=== PATIENT | female | born 1975 | race Caucasian/White ===

== ENCOUNTER 2019-03-24 17:14 | Emergency (ER) | payer SELFPAY ==
--- NOTE | 2019-03-24 17:15 | ED_ITS ---
Entered by Gill Caruso, acting as scribe for Geovanni Morrow MD HPI - Chest Pain General: Chief Complaint: Chest Pain Stated Complaint: CHEST PAIN Time Seen by Provider: 03/24/19 17:18 Source: patient, EMS and RN notes reviewed Mode of arrival: EMS Limitations: no limitations History of Present Illness: HPI narrative: 43 yo female presents to ED with complaints of chest pain. The patient states her pain began around 1100 this morning. She said she had numbness in her R hand and face, that has since resolved. The patient said her chest pain radiated down into her L arm, but it only lasted a couple of minutes and it too has resolved. She stated the pain was worse with palpation. The patient is now tired, nauseated and has a headache but overall she is feeling better. complaint: chest pain Onset (ago): hour(s) (6) Timing of current episode: episodic Prior episodes: No Onset: during rest Pain location: substernal Pain radiation: left arm Severity: moderate Quality: aching Relieving factors: rest Exacerbating factors: exertion Associated symptoms: Reports nausea; Deny dyspnea or fever(s) Treatment prior to arrival: aspirin Risk Factors: Coronary artery disease risk factors: smoking history Thoracic aortic dissection risk factors: none Review of Systems Const: Denies: fever or chills Eyes: Denies: change in vision ENMT: Denies: throat pain or mouth pain Resp: Denies: shortness of breath GI: Reports: nausea : Denies: difficulty urinating Musc: Denies: back pain or joint pain Skin/Breast: Denies: rash Neuro: Denies: headache or behavioral changes Psych: Denies: depression Endo: Denies: excessive urination Francisco J/Lymph: Denies: easy bruising All/Imm: Denies: hives PFSH ED PFSH: Statuses (acute, chronic, etc) shown below reflect problem list status as previously entered and may not be historically accurate Social History Smoking and tobacco status: current every day smoker Physical Exam Const: COMMON NORMALS: no apparent distress and healthy appearing HENMT: COMMON NORMALS: normocephalic and external nose normal HEAD & SCALP: normocephalic NOSE: external nose normal and no nasal discharge (nasal dischage) Eye: COMMON NORMALS: PERRL PUPIL: Yes PERRL Neck/C-Spine: COMMON NORMALS: full ROM and no lymphadenopathy Chest: COMMONS NORMALS: inspection of chest normal Resp: COMMON NORMALS: normal respiratory effort and clear to auscultation bilaterally AUSCULTATION: clear to auscultation bilaterally Cardio: COMMON NORMALS: regular rate and regular rhythm RATE: regular rate RHYTHM: regular rhythm GI: COMMON NORMALS: soft to palpation PALPATION: Yes soft Extremity: COMMON NORMALS: normal to inspection, full ROM and normal capillary refill Psych: COMMON NORMALS: mental status grossly normal and cooperative Skin: COMMON NORMALS: no rashes or lesions noted GENERAL SKIN EXAM: no rashes or lesions noted Course Vital Signs: Vital signs: Vital Signs Temperature 97.7 F 03/24/19 17:18 Pulse Rate 68 03/24/19 20:34 Respiratory Rate 18 03/24/19 20:34 Blood Pressure 130/95 03/24/19 20:34 Pulse Oximetry 98 03/24/19 20:34 MDM - Chest Pain MDM Narrative: Medical decision making narrative: Patient presents here with chest pain is atypical in nature. Her troponin here is negative. On x-ray mass was found incidental and CT scan does show a possible neoplasm. I spoke to patient about this at length and have her follow-up with Dr. Whitley of oncology likely needs a PET scan. Lab Data: Labs: Lab Results 03/24/19 03/24/19 03/24/19 Range/Units 17:36 17:36 17:36 WBC 12.1 H (4.0-10.0) 10^3/ uL RBC 5.01 (4.1-5.3) 10^6/u L Hgb 12.8 (11.5-15.3) g/dL Hct 38.5 (37.0-47.0) % MCV 76.8 L (81-99) fL MCH 25.5 L (28.0-34.0) pg MCHC 33.2 (30.0-36.0) g/dL RDW 14.2 (12.1-15.1) % Plt Count 385 (130-400) 10^3/c mm MPV 9.5 (7.4-10.4) fL Neut % (Auto) 66.7 % Lymph % (Auto) 26.7 % Dent % (Auto) 5.1 % Eos % (Auto) 1.0 % Baso % (Auto) 0.2 % Neut # (Auto) 8.1 H (1.8-7.7) 10^3/u L Lymph # (Auto) 3.2 (0.8-4.8) 10^3/u L Dent # (Auto) 0.6 (0.2-0.9) 10^3/u L Eos # (Auto) 0.1 (0.0-0.8) 10^3/u L Baso # (Auto) 0.0 (0.0-0.1) 10^3/u L Nucleated RBC % (a uto) 0 % Nucleated RBCs # 0.0 /100WBC Sodium 141 (136-145) mmol/L Potassium 3.4 L (3.5-5.1) mmol/L Chloride 102 (98-107) mmol/L Carbon Dioxide 24 (22-29) mmol/L Anion Gap 18.4 (5-19) BUN 6 (6-20) mg/dL Creatinine 0.7 (0.5-0.9) mg/dL GFR Calculation 91.8 (90-130) mL/min Glucose 132 H (74-109) mg/dL Calculated Osmolal ity 290 (285-295) mOsm/k g Calcium 9.9 (8.5-10.5) mg/dL Troponin T Baselin e 6 (0-10) ng/mL Troponin T 120 Min [place] (0-10) ng/mL Delta Troponin T (0-10) ABS# Influenza Type A A g (Negative) POC Influenza B Ag (Negative) 03/24/19 03/24/19 Range/Units 17:45 19:52 WBC (4.0-10.0) 10^3/ uL RBC (4.1-5.3) 10^6/u L Hgb (11.5-15.3) g/dL Hct (37.0-47.0) % MCV (81-99) fL MCH (28.0-34.0) pg MCHC (30.0-36.0) g/dL RDW (12.1-15.1) % Plt Count (130-400) 10^3/c mm MPV (7.4-10.4) fL Neut % (Auto) % Lymph % (Auto) % Dent % (Auto) % Eos % (Auto) % Baso % (Auto) % Neut # (Auto) (1.8-7.7) 10^3/u L Lymph # (Auto) (0.8-4.8) 10^3/u L Dent # (Auto) (0.2-0.9) 10^3/u L Eos # (Auto) (0.0-0.8) 10^3/u L Baso # (Auto) (0.0-0.1) 10^3/u L Nucleated RBC % (a uto) % Nucleated RBCs # /100WBC Sodium (136-145) mmol/L Potassium (3.5-5.1) mmol/L Chloride (98-107) mmol/L Carbon Dioxide (22-29) mmol/L Anion Gap (5-19) BUN (6-20) mg/dL Creatinine (0.5-0.9) mg/dL GFR Calculation (90-130) mL/min Glucose (74-109) mg/dL Calculated Osmolal ity (285-295) mOsm/k g Calcium (8.5-10.5) mg/dL Troponin T Baselin e (0-10) ng/mL Troponin T 120 Min [place] 6.69 (0-10) ng/mL Delta Troponin T 0.69 (0-10) ABS# Influenza Type A A g Negative (Negative) POC Influenza B Ag Negative (Negative) Imaging Data^: CT Chest: Radiologist's impression: Ordering Provider/Ordering MD: Geovanni Morrow MD Date of Service: 03/24/19 Procedure(s): CT chest w con* [id number] Accession Number(s): [id number] Report Number: [id number] PROCEDURE INFORMATION: Exam: CT Chest With Contrast Exam date and time: 03/24/2019 6:59 PM Age: 43 years old Clinical indication: Abnormal findings; Lung mass or nodule; Not specified; Patient HX: Weakness, cxr in er abnormal, PT is a current smoker, PT denies surg HX, PT denies HX of CA. TECHNIQUE: Imaging protocol: Computed tomography of the chest with intravenous contrast. Total DLP: 823.85 mGy-cm Radiation optimization: All CT scans at this facility use at least one of these dose optimization techniques: automated exposure control; mA and/or kV adjustment per patient size (includes targeted exams where dose is matched to clinical indication); or iterative reconstruction. Contrast material: OMNIPAQUE 300; Contrast volume: 95 ml; Contrast route: IV; COMPARISON: CR XR chest 1V portable [id number] 03/24/2019 6:45 PM FINDINGS: Lungs: There is an 18 x 37 x 25 mm mass in the right middle lobe corresponding with the findings on chest radiograph. This mass is slightly lobulated in appearance but has smooth borders. This mass is worrisome for pulmonary neoplasm. Further evaluation is suggested. There is a 4 mm sized smooth nodule in the left upper lobe on image number 26, a 3 mm size nodule on image number 29 in the left upper lobe, a 3 mm size nodule in the posterior left lower lobe on image number 37 and a 7 mm sized smooth nodule in the left lower lobe on image number 46. There is also a 4 mm nodule in the right upper lobe on image number 14, a 8 x 13 mm nodule in the right lower lobe on image number 31 and a 4 mm nodule in the posterior right lower lobe on image number 41. These nodules are nonspecific but raise concern for possible pulmonary metastasis. Further evaluation such as with biopsy of the primary mass, or PET CT scan is suggested. Pleural space: Unremarkable. No pneumothorax. No pleural effusion. Heart: Unremarkable. No cardiomegaly. No pericardial effusion. Aorta: Unremarkable. No aortic aneurysm. Lymph nodes: See Pancreas Finding. Pancreas: There is a 16 x 28 x 19 mm smooth oval cystic mass either arising from or adjacent to the superior border of the neck of the pancreas and there is a mildly prominent lymph node adjacent to the head of the pancreas measuring 10 x 27 mm. Small nonspecific mesenteric lymph nodes are identified measuring up to 7 mm and there are few mildly prominent but not necessary pathologic retroperitoneal lymph nodes measuring up to 7 x 9 mm just inferior to the left renal vein. Bones/joints: Unremarkable. No acute fracture. Soft tissues: Unremarkable. CT/CT chest w con* [id number] IMPRESSION: 1. Right pulmonary mass which is worrisome for pulmonary neoplasm, further evaluation is suggested. Highly suspicious nodule(s). Consider PET/CT, or tissue sampling.(Michelle et al., Fleischner Society, 2017) 2. Bilateral pulmonary nodules which raise concern for metastatic disease 3. Minimal right hilar adenopathy 4. Cystic pancreatic or peripancreatic mass, further evaluation is suggested. 5. There is also an enlarged right hilar lymph node measuring 12 x 25 mm. Radiation Dose CTDIVOL = (mGy): DLP = 823.85 (mGy-cm) EKG Data^: EKG 1: Attestation: I personally reviewed and interpreted this EKG as follows: EKG interpretation date: 03/24/19 EKG interpretation time: 17:36 Interpretation: Normal sinus rhythm heart rate [address] or T wave abnormalities. QRS 88 QTc 411 EKG 2: Attestation: I personally reviewed and interpreted this EKG as follows: EKG interpretation date: 03/24/19 EKG interpretation time: 19:46 Interpretation: nsr hr [address] or t wave abnormalities qrs 82 qtc 417 Discharge Plan Discharge Patient Disposition: Home, Self-Care Clinical Impression: Mass of lung, Chest pain Condition: Stable Prescriptions: New Zofran 4 mg tablet 4 mg PO QID PRN (Reason: nausea and vomiting) Qty: 14 RF: 0 No Action ibuprofen 200 mg Capsule 200 mg PO Q6H PRN (Reason: Pain) RF: 0 Tylenol Extra Strength 500 mg Tablet 1,000 mg PO Q4H PRN (Reason: Pain) RF: 0 Discharge Orders: Discharge Order (Routine); Ordered 03/24/19 Ordered By: Geovanni Morrow Referrals: Mil Whitley MD [Hospitalist] - 4-7 days Char Fry FNP [Family Provider] - Discharge Diet: Advance as tolerated Discharge Activity: Resume usual activity Patient Instructions: Lung Cancer (ED) Discharge Date/Time: 03/24/19 20:30 Coding Level of Care Code ED Wine Fermenter for Chg Fwd Exam Problem Focused The documentation recorded by the Shady hughes Valerie R, accurately reflects the service I personally performed and the decisions made by Cristhian dumont Korby, MD Mar 24, 2019 17:14
[2019-03-24 17:18] VITALS: BP 126/80; PULSE 77; RESP 20; TEMP 36.5; O2SAT 98; BMI 29.5
--- NOTE | 2019-03-24 17:24 | ECG_ITS ---
Measurements Intervals [employer] Rate: 61 P: -16 MD: 131 QRS: 12 QRSD: 82 T: 34 QT: 414 QTc: 419 SINUS RHYTHM WITH SINUS ARRHYTHMIA Compared to ECG 03/24/2019 17:36:38 Myocardial infarct finding no longer present Electronically Signed On 03-25-2019 17:51:31 SAFE DEPOSIT ATTENDANT by Marvin Martinez M.D. [id number]
--- NOTE | 2019-03-24 17:30 | PC.NURSE ---
EMS gave 8 mg of zofran IV and 100 mls fluid.
[2019-03-24 17:44] LABS: Basophils % 0.2 %; Eosinophils # 0.1 10^3/uL (0.0-0.8); Hematocrit 38.5 % (37.0-47.0); Hemoglobin 12.8 g/dL (11.5-15.3); Lymphocytes # 3.2 10^3/uL (0.8-4.8); Lymphocytes % 26.7 %; Mean Corpuscular HGB Conc 33.2 g/dL (30.0-36.0); Mean Corpuscular Hemoglobin 25.5 pg (28.0-34.0); Mean Corpuscular Volume 76.8 fL (81-99); Mean Platelet Volume 9.5 fL (7.4-10.4); Monocytes # 0.6 10^3/uL (0.2-0.9); Monocytes % 5.1 %; Neutrophils # 8.1 10^3/uL (1.8-7.7); Neutrophils % 66.7 %; Nucleated Red Blood Cells % 0 %; Platelet Count 385 10^3/cmm (130-400); Red Blood Count 5.01 10^6/uL (4.1-5.3); Red Cell Distribution Width 14.2 % (12.1-15.1); White Blood Count 12.1 10^3/uL (4.0-10.0)
[2019-03-24 17:59] LABS: Anion Gap 18.4 (5-19); Blood Urea Nitrogen 6 mg/dL (6-20); Calcium 9.9 mg/dL (8.5-10.5); Carbon Dioxide 24 mmol/L (22-29); Chloride 102 mmol/L (98-107); Creatinine Clr Calc Pharmacy 105.8227; Glomerular Filtration Rate 91.8 mL/min (90-130); Glucose 132 mg/dL (74-109); Osmolality Calculated 290 mOsm/kg (285-295); Potassium 3.4 mmol/L (3.5-5.1); Sodium 141 mmol/L (136-145)
[2019-03-24 18:00] LABS: Troponin(5th) Baseline 6 ng/mL (0-10)
--- NOTE | 2019-03-24 18:06 | XR_ITS ---
WS: [id number] CHEST XRAY TECHNIQUE: Portable chest. CLINICAL INFORMATION: cp COMPARISON: None. FINDINGS: Heart: Normal cardiac silhouette. Lungs: Right pulmonary nodule measuring 3.9 x 2.3 CCM. Please see concurrent CT for further detail. P rominent right hilar lymph nodes. Bones: Normal visualized bony structures. XR/XR chest 1V portable [id number] IMPRESSION: Right pulmonary nodule measuring 3.9 x 2.3 CM. Right hilar lymphadenopathy. See concurrent chest CT report for further detail.
[2019-03-24 18:22] LABS: Influenza A by IFA Negative (Negative); Influenza B by IFA Negative (Negative)
--- NOTE | 2019-03-24 18:55 | CTR_ITS ---
PROCEDURE INFORMATION: Exam: CT Chest With Contrast Exam date and time: 03/24/2019 6:59 PM Age: 43 years old Clinical indication: Abnormal findings; Lung mass or nodule; Not specified; Patient HX: Weakness, cxr in er abnormal, PT is a current smoker, PT denies surg HX, PT denies HX of CA. TECHNIQUE: Imaging protocol: Computed tomography of the chest with intravenous contrast. Total DLP: 823.85 mGy-cm Radiation optimization: All CT scans at this facility use at least one of these dose optimization techniques: automated exposure control; mA and/or kV adjustment per patient size (includes targeted exams where dose is matched to clinical indication); or iterative reconstruction. Contrast material: OMNIPAQUE 300; Contrast volume: 95 ml; Contrast route: IV; COMPARISON: CR XR chest 1V portable [id number] 03/24/2019 6:45 PM FINDINGS: Lungs: There is an 18 x 37 x 25 mm mass in the right middle lobe corresponding with the findings on chest radiograph. This mass is slightly lobulated in appearance but has smooth borders. This mass is worrisome for pulmonary neoplasm. Further evaluation is suggested. There is a 4 mm sized smooth nodule in the left upper lobe on image number 26, a 3 mm size nodule on image number 29 in the left upper lobe, a 3 mm size nodule in the posterior left lower lobe on image number 37 and a 7 mm sized smooth nodule in the left lower lobe on image number 46. There is also a 4 mm nodule in the right upper lobe on image number 14, a 8 x 13 mm nodule in the right lower lobe on image number 31 and a 4 mm nodule in the posterior right lower lobe on image number 41. These nodules are nonspecific but raise concern for possible pulmonary metastasis. Further evaluation such as with biopsy of the primary mass, or PET CT scan is suggested. Pleural space: Unremarkable. No pneumothorax. No pleural effusion. Heart: Unremarkable. No cardiomegaly. No pericardial effusion. Aorta: Unremarkable. No aortic aneurysm. Lymph nodes: See Pancreas Finding. Pancreas: There is a 16 x 28 x 19 mm smooth oval cystic mass either arising from or adjacent to the superior border of the neck of the pancreas and there is a mildly prominent lymph node adjacent to the head of the pancreas measuring 10 x 27 mm. Small nonspecific mesenteric lymph nodes are identified measuring up to 7 mm and there are few mildly prominent but not necessary pathologic retroperitoneal lymph nodes measuring up to 7 x 9 mm just inferior to the left renal vein. Bones/joints: Unremarkable. No acute fracture. Soft tissues: Unremarkable. CT/CT chest w con* [id number] IMPRESSION: 1. Right pulmonary mass which is worrisome for pulmonary neoplasm, further evaluation is suggested. Highly suspicious nodule(s). Consider PET/CT, or tissue sampling.(Michelle et al., Fleischner Society, 2017) 2. Bilateral pulmonary nodules which raise concern for metastatic disease 3. Minimal right hilar adenopathy 4. Cystic pancreatic or peripancreatic mass, further evaluation is suggested. 5. There is also an enlarged right hilar lymph node measuring 12 x 25 mm. Radiation Dose CTDIVOL = (mGy): DLP = 823.85 (mGy-cm)
[2019-03-24] MEDS: iohexol 300 mg/mL 100 mL Btl IV (19:14)
[2019-03-24] MEDS: acetaminophen 500 mg Tablet 1000 MG PO (19:33)
--- NOTE | 2019-03-24 19:36 | PC.NURSE ---
Patient c/o headache and requesting tylenol. EMD aware. Order received and Tylenol po given . Denies further needs.
[2019-03-24 20:16] LABS: Troponin 5 2HR 6.69 ng/mL (0-10); Troponin 5 2HR Delta 0.69 ABS# (0-10)
[2019-03-24 20:34] VITALS: BP 130/95; PULSE 68; RESP 18; O2SAT 98
--- NOTE | 2019-03-24 23:24 | ECG_ITS ---
Measurements Intervals [place] Rate: 74 P: 17 SD: 143 QRS: 1 QRSD: 88 T: 16 QT: 383 QTc: 427 SINUS RHYTHM WITH SINUS ARRHYTHMIA LOW QRS VOLTAGE IN PRECORDIAL LEADS [QRS DEFLECTION < 1.0 mV IN CHEST LEADS] POSSIBLE ANTERIOR MYOCARDIAL INFARCTION , PROBABLY OLD [30 ms Q WAVE IN V3/V4, OR R < 0.2 mV IN V4] No previous ECG available for comparison Electronically Signed On 03-24-2019 18:56:20 FITNESS PROFESSIONAL by Marvin Martinez M.D. [id number]
--- NOTE | 2019-03-26 08:59 | DCPLANNER ---
project engineering manager had message to schedule a follow up appointment for patient with Dr. Whitley. project engineering manager spoke with Brenda in the office of Dr. Whitley, was told that patient will need to follow up with Dr. Chaparro first, she will need to have paths done before being seen by Dr. Whitley. project engineering manager called [facility], spoke with Ina, a follow up appointment is scheduled for March at 11:[address] Chaparro. Clinic will call patient with appointment information.
--- NOTE | 2019-05-09 09:09 | DCPLANNER ---
Patient did attend appointment scheduled for 04.11.19 with [facility].
== END 2019-03-24 20:30 | disposition home or self-care (01) ==
PROVIDERS: Emergency Provider Emergency Medicine; Family Provider Nurse Practitioner
DX: R07.9 Chest pain, unspecified (principal); R91.8 Other nonspecific abnormal finding of lung field; F17.210 Nicotine dependence, cigarettes, uncomplicated
CPT/HCPCS: 36415; 71045; 71260; 80048; 84484; 85025; 87804; 93005; 99281; Q9967

== ENCOUNTER 2019-06-17 14:25 | Inpatient (IN) | payer MEDICAID, SELFPAY ==
[2019-06-12 12:42] VITALS: BMI 28.9
[2019-06-12 13:11] LABS: Basophils % 0.3 %; Eosinophils # 0.2 10^3/uL (0.0-0.8); Eosinophils % 1.7 %; Hematocrit 41.9 % (37.0-47.0); Hemoglobin 13.3 g/dL (11.5-15.3); Lymphocytes # 3.2 10^3/uL (0.8-4.8); Lymphocytes % 33.2 %; Mean Corpuscular HGB Conc 31.7 g/dL (30.0-36.0); Mean Corpuscular Hemoglobin 25.7 pg (28.0-34.0); Mean Corpuscular Volume 80.9 fL (81-99); Mean Platelet Volume 9.7 fL (7.4-10.4); Monocytes # 0.5 10^3/uL (0.2-0.9); Monocytes % 5.2 %; Neutrophils # 5.6 10^3/uL (1.8-7.7); Neutrophils % 59.4 %; Nucleated Red Blood Cells % 0 %; Platelet Count 345 10^3/cmm (130-400); Red Blood Count 5.18 10^6/uL (4.1-5.3); Red Cell Distribution Width 14.4 % (12.1-15.1); White Blood Count 9.5 10^3/uL (4.0-10.0)
[2019-06-12 13:20] LABS: INR 0.96 (0.8-1.2)
[2019-06-12 13:21] LABS: Bilirubin Urine Neg (NEGATIVE); Blood Urine 2+ (Negative); Glucose Urine UA Norm (Normal); Ketones Urine Negative (Negative); Leukocyte Esterase Urine Negative (Negative); Nitrate Urine Negative (Negative); Protein Urine Neg (Negative); Specific Gravity, Urine 1.005 (1.005-1.030); Urine Appearance Clear (CLEAR); Urine Color Straw (Yellow); Urobilinogen Urine Norm (Negative); pH Urine 6.5 (5-7)
[2019-06-12 13:22] LABS: Add Urine Microscopic? YES
[2019-06-12 13:28] LABS: Add Urine Culture? Yes; Bacteria Urine 2+; Squamous Epithelial Cell Urine 0-4 (0-5); WBC Urine 0-4 /hpf (0-5)
[2019-06-12 13:30] LABS: Anion Gap 14.5 (5-19); Blood Urea Nitrogen 7 mg/dL (6-20); Calcium 9.6 mg/dL (8.5-10.5); Carbon Dioxide 27 mmol/L (22-29); Chloride 101 mmol/L (98-107); Glomerular Filtration Rate 109.6 mL/min (90-130); Glucose 125 mg/dL (65-115); Osmolality Calculated 285 mOsm/kg (285-295); Potassium 3.5 mmol/L (3.5-5.1); Sodium 139 mmol/L (136-145)
[2019-06-17] VITALS (23 sets, daily range): BP systolic 89–125; BP diastolic 56–84; PULSE 67–95; RESP 12–23; TEMP 36.4–37.3; O2SAT 93–100
[2019-06-17 09:13] LABS: OR HCG Qualitative Urine Negative (Negative)
--- NOTE | 2019-06-17 09:27 | P.ANESASSM_ITS ---
Pre-Anesthetic Assessment Pre-Anesthetic Assessment: Height/Weight: Height 1.63 m Weight 77.564 kg Preop Diagnosis: R lung mass Proposed Procedure: Operation Date: 06/17/19 11:05 Proposed Procedures p Lobectomy of right 00341(Right) - Romaine Schwab MD Familial anesthetic complications: None Was Beta Antonia taken within 24 hour s: N/A Last intake: NPO > 8 hrs Social: Social History: No alcohol Comment: former smoker Exam: Pre-Anes Outpt Exam: alert, oriented x 3, clear to auscultation bilaterally and regular rate & rhythm Airway: Cervical ROM: WNL MP: 2 Additional comments: missing Pulmonary: Comments: Lung mass, occasional SOB recently (6 months) CV/HEM: CV/HEM: None reported : : None reported Hepatic: Hepatic: None reported GI: GI: None reported Metabolic: Metabolic: None reported Comments: occasional hypoglycemia - was on glucophage Musc/skel: Musc/skel: OA/DJD Neuropsych: Neuropsych: None reported Anesthetic Plan: ASA status: 2 Anesthesia: General Risk of > 500 ml blood loss (7ml/kg in children): Yes, adequate IV access and fluids planned PFSH Anesthesia PFSH: Medical History (Updated 06/12/19 @ 12:40 by Dominique Mcbride RN) Bursitis Osteoarthritis Surgical History H/O tubal ligation History of 3 sections Social History Smoking and tobacco status: former smoker Quit status (tobacco): has quit using tobacco Year quit tobacco: 2019 - 1.5PPD x 30 Years Alcohol intake: never Lives independently: Yes Household members: none Marital status: Legally Current occupational status: employed Current occupational exposures/hazards: No History of recent travel: No Current gender identity: Female Female Reproductive History: Date of last menstrual period: 05/19/19 Data Anesthesia CBC & Chem 7: 06/12/19 12:53 06/12/19 12:53 Other Labs: Laboratory Results - last 48 hr 06/12/19 06/17/19 12:53 09:09 Urine HCG, Qual Negative Blood Type O Positive Rho(D) Type Positive Antibody Screen Negative Crossmatch See Detail Cardiac Studies: No Data to Display
[2019-06-17] MEDS: midazolam 1 mg/mL INJ 2 mL 2 MG IVP (09:42)
--- NOTE | 2019-06-17 10:10 | W.PM.OPSUD ---
Surgery/Procedure H&P Update DATE OF PROCEDURE: June 17, 2019 DATE H&P PERFORMED: 06/12/19 H&P UPDATE INFORMATION: I have reviewed H&P completed within last 30 days, I have examined patient prior to procedure and No changes to prior documentation PREOP DIAGNOSIS: R lung mass PRIMARY INDICATION FOR PROCEDURE: Right middle lobe lung mass with increased activity on PET scan and history of tobacco use PLANNED PROCEDURE: Operation Date: 06/17/19 11:05 Proposed Procedures p Lobectomy of right 51780(Right) - Romaine Schwab MD
--- NOTE | 2019-06-17 10:38 | P.ANES_ITS ---
Anesthesia Procedures Procedure/Date: 06/17/19 Epidural: Time Out Performed: Yes Consents Signed: Procedure Consent Consent: requested by attending/covering physician, from patient, risks and benefits reviewed and patient agrees to proceed Thoracic Level: other (T5-6) Epidural position: sitting Epidural procedure: sterile prep of area (Chloro prep X 2), 1% lidocaine to numb the area, 18 g needle, neg for paresthesia, test dose given (negative), 1.5% xylocaine 1:200k epi (3 ml), placed PCEA, no systemic response, sterile dressing applied and 0.2% Ropiavacaine @ mls/hr (6)
[2019-06-17] MEDS: cetacaine Spray 5 gm Can 1 SPRAY TOPICAL (11:38)
[2019-06-17] MEDS: vancomycin 1,000 MG SDV 1000 MG IRRIGATION (12:06)
--- NOTE | 2019-06-17 14:37 | P.OP_ITS ---
Operative Report Date of procedure: June 17, 2019 Pre-op Diagnosis: R lung mass Post-op diagnosis: same Procedure Done: Right middle lobectomy Specimens removed/disposition: Right middle lobe Biopsy of hilar lymph node Surgeon: Romaine Schwab Anesthesia: General Estimated blood loss (mL): 100 Complications: None: Post procedure chest x-ray pending Condition: stable Disposition: ICU Brief History: Ms. Wick is a 43-year-old female referred to our service for incidental finding of a right middle lobe mass. She was recently seen back in February for shoulder pain which prompted a chest x-ray revealing this lesion which was confirmed by CT scan to be a 3.5 cm right middle lobe smooth based mass. Subsequent PET scan of April 20 revealed intense activity in this lesi on. Given her long history of tobacco use, resection of the recommended. Details the risk of the procedure were carefully and frankly discussed. Proper consents have been reviewed and signed. Procedure: Thoracic epidural catheter was placed prior to entering the surgical suite. Patient underwent general endotracheal anesthesia with double-lumen e ndotracheal tube placed. Appropriate invasive lines were placed. She was placed in the left lateral decubitus position over axillary roll and protective padding. Her entire right chest was sterilely prepped and draped. A muscle- sparing limited right thoracotomy incision was made with cautery used to control bleeding. Latissimus muscle was divided. The anterior serratus muscle was retracted but not divided. The fifth intercostal space was entered. Moist laparotomy pads and the Finochietto retractor were placed. The chest was carefully opened. Right middle lobe mass could be easily palpated. This lesion appeared to be confined to the right middle lobe though there was some hilar adenopathy that was fairly firm. There appeared to be no extension of the mass beyond the fissure, though the lesion was in the inferior aspect of the right middle lobe towards the right lower lobe. The pleura was opened circumferentially around the hilum. Inferior pulmonary ligament was taken down. Hilar dissection was initiated anteriorly and superiorly. The branches of the superior pulmonary vein to the right middle lobe were controlled and stapled. Dissection was then continued cranially isolating branches of the pulmonary artery to the right middle lobe. These were also taken down ligated and divided. Anteriorly, the bronchus to the right middle lobe was dissected free. The incomplete fissure between middle lobe and upper lobe was divided using automated stapler. After completion of dissection through the fissure and completion of securing vasculature, the bronchus to right middle lobe was stapled and transected. Lymph node sampling was then performed in the hilum, which contained prominent and firm lymphoid tissue the entire chest was irrigated with large amounts of antibiotic solution. The right upper and lower lobes were reinflated. No substantial air leaks were identified. 28 [place] drain was placed over the diaphragm and out to the apex. This was connected to Pleur-evac suction. Retractor and sponges were removed. Sponge and needle count was correct. Chest wall was reapproximated with interrupted #1 Vicryl suture. The fascia was closed with running 0 Vicryl suture. The subcutaneous layer was closed with 2-0 Vicryl suture. Skin was reapproximated in a subcuticular manner with 3-0 Monocryl suture. Sterile dressing was applied. Ms. Wick was returned to the supine position and awakened from anesthesia. She was extubated. She was then transferred to the ICU. Her sister was counseled by phone. Chest x-ray is pending.
--- NOTE | 2019-06-17 14:41 | XR_ITS ---
WS: [id number] CHEST XRAY TECHNIQUE: Portable chest. CLINICAL INFORMATION: Status post right middle lobectomy COMPARISON: March 24, 2019 FINDINGS: Right chest tube in place. Postoperative right middle lobectomy. Subcutaneous emphysema rig ht lateral chest wall. No definite visualized pneumothorax. Mild pulmonary vascular congestion. XR/XR chest 1V portable [id number] IMPRESSION: 1. Postoperative changes right middle lobectomy with right thoracotomy. 2. Right chest tube in place. No definite visualized pneumothorax. 3. Mild pulmonary vascular congestion. No significant pleural fluid. No focal pneumonia.
--- NOTE | 2019-06-17 14:51 | ANE.PACU2 ---
 Inpatient post-anesthesia follow up: Airway intact: Yes Vital signs: Temperature 97.5 F Pulse Rate 76 Respiratory Rate 18 Blood Pressure 116/79 Pulse Oximetry 100 Oxygen Delivery Me thod Room Air Oxygen Flow Rate Fraction of Inspir ed Oxygen Hydration adequate: Yes Nausea and vomiting: No Pain level: 2 Mental status: Baseline Additional Comments: post procedure in ICU 11. patient admits to minimal pain. report to CHAIRMAN EMERITUS
[2019-06-17] MEDS: lactated ringers 1,000 ML 100 ML IV (16:29)
--- NOTE | 2019-06-17 19:21 | PC.NURSE ---
ART line removed. pressure held for 15 min. pt tolerated well.
--- NOTE | 2019-06-17 19:23 | NUR.SHIFT ---
Pt is easily rousable. sleeping in between care. Currently BP starting to get in the 80-90's systolic. Maddison ARTHUR notified as she is the on coming nurse.
[2019-06-17] MEDS: ceFAZolin 1,000 MG in sodium chloride 0.9% (plus) 50 ML 100 MG IV (19:25)
--- NOTE | 2019-06-17 19:51 | PC.NURSE ---
Opening statement upon shift report, patient [employer] pump has 40.7ml of ropivicaine left in bag. patient is getting 6ML/hr continuous with 3 attempts. patient has been given 9/13 attempts from pump. 1954 patient blood pressure 77/49. patient began to get very nauseous and had one episode of vomiting. patient was sat up and given IV zofran for nausea. repeat blood pressure on right arm shows 84/62. patient is stating a pain of 6/10 but if moshe sedated when nurse is not in room. 1904 Kenyon Lance,RF MICROWAVE ENGINEER contacted and informed of patient sedation, low blood pressure, vomiting episode. Kenyon informed of epidural setting. Verbal order to decrease [employer] pump to 3ml/hr with 1 attempt.
[2019-06-17] MEDS: ondansetron 2 mg/ML SDV 2 mL 4 MG IVP (20:01)
[2019-06-17] MEDS: ketorolac 30 mg/mL INJ IVP (22:23)
[2019-06-18] VITALS (61 sets, daily range): BP systolic 95–138; BP diastolic 62–85; PULSE 57–88; RESP 14–24; TEMP 37.2–37.6; O2SAT 88–99
[2019-06-18] MEDS: lactated ringers 1,000 ML 100 ML IV ×3 (02:11→21:59)
[2019-06-18] MEDS: ketorolac 30 mg/mL INJ IVP ×4 (04:38→20:36)
[2019-06-18] MEDS: ceFAZolin 1,000 MG in sodium chloride 0.9% (plus) 50 ML 100 MG IV ×3 (04:38→19:07)
--- NOTE | 2019-06-18 04:41 | XR_ITS ---
WS: [id number] CHEST XRAY TECHNIQUE: Portable chest. CLINICAL INFORMATION: post op cabg COMPARISON: June 17, 2019 FINDINGS: Heart: Normal cardiac silhouette. Lungs: Right chest tube in place. Postoperative changes right middle lobectomy. No visualized pneumot horax. Pulmonary vascular congestion has improved. Bones: Normal visualized bony structures. XR/XR chest 1V portable [id number] IMPRESSION: 1. Postoperative right middle lobectomy with improved pulmonary vascular conge stion. 2. Right chest tube in place. No visualized pneumothorax.
[2019-06-18 05:17] LABS: Basophils % 0.2 %; Eosinophils % 0.3 %; Hematocrit 36.2 % (37.0-47.0); Hemoglobin 11.3 g/dL (11.5-15.3); Lymphocytes # 3.3 10^3/uL (0.8-4.8); Mean Corpuscular HGB Conc 31.2 g/dL (30.0-36.0); Mean Corpuscular Hemoglobin 25.3 pg (28.0-34.0); Mean Corpuscular Volume 81.2 fL (81-99); Monocytes # 1.2 10^3/uL (0.2-0.9); Monocytes % 8.6 %; Neutrophils # 9.6 10^3/uL (1.8-7.7); Neutrophils % 67.5 %; Nucleated Red Blood Cells % 0 %; Platelet Count 305 10^3/cmm (130-400); Red Blood Count 4.46 10^6/uL (4.1-5.3); Red Cell Distribution Width 14.4 % (12.1-15.1); White Blood Count 14.2 10^3/uL (4.0-10.0)
[2019-06-18 05:36] LABS: Anion Gap 15.8 (5-19); Blood Urea Nitrogen 6 mg/dL (6-20); Calcium 9.1 mg/dL (8.5-10.5); Carbon Dioxide 24 mmol/L (22-29); Chloride 104 mmol/L (98-107); Glomerular Filtration Rate 109.6 mL/min (90-130); Glucose 108 mg/dL (65-115); Osmolality Calculated 286 mOsm/kg (285-295); Potassium 3.8 mmol/L (3.5-5.1); Sodium 140 mmol/L (136-145)
--- NOTE | 2019-06-18 06:16 | P.PN_ITS ---
Subjective Subjective: Interval history: Postop day #1 status post right middle lobectomy. Uneventful night. Epidural catheter had to be decreased somewhat due to some mild hypotension and some nausea. Both have resolved with decrease of the epidural rate. Very low chest tube output. No air leak. I have personally reviewed this morning's chest x-ray. No infiltrate or effusion. Good lung expansion bilaterally. Lab is stable this morning. Vital signs stable. Vitals/I&O/Wt Last Vital Signs Temp 99.3 F 06/18/19 04:00 Pulse 70 06/18/19 06:00 Resp 17 06/18/19 06:00 BP 106/71 06/18/19 06:00 Pulse Ox 95 06/18/19 06:00 06/17/19 06/17/19 06/18/19 14:59 22:59 06:59 Intake Total 50 / 50 470 / 520 1948 / 2468 Output Total 1000 / 1000 1675 / 2675 Balance 50 / 50 -530 / -480 273 / -207 Physical Exam Resp: COMMON NORMALS: normal respiratory effort, no retractions and clear to auscultation bilaterally AUSCULTATION: clear to auscultation bilaterally Cardio: COMMON NORMALS: regular rate, regular rhythm and S1 normal heart sound RATE: regular rate RHYTHM: regular rhythm HEART SOUNDS: S1 normal Extremity: COMMON NORMALS: no clubbing, cyanosis or edema Urinary Catheter Management^: Barnes: Cath Placed During This Visit: yes Reason for Continuing Indwelling Catheter: Accurate Measurement of Urinary Output in Critically Ill Patients Urinary Catheter Date of Insertion: 06/17/19 Urinary Catheter Time of Insertion: 11:45 Data : 06/18/19 04:25 06/18/19 04:25 A&P Assessment and plan (1) Status post lobectomy of lung: Postop day #1 status post right middle lobectomy. Recovering quite well. Plan: Continue pulmonary toilet and out of bed. Continue chest tube to suction. 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
[2019-06-18] MEDS: pantoprazole DR 40 mg Tablet PO (08:11)
[2019-06-18] MEDS: ondansetron 2 mg/ML SDV 2 mL 4 MG IVP (08:13)
[2019-06-18] MEDS: morphine 4 mg/mL SDV 1 mL 1 MG IVP ×3 (10:00→19:08)
[2019-06-18] MEDS: HYDROcodone-acetaminophen 5-325 mg Tablet 1 TAB PO ×2 (11:14→17:02)
--- NOTE | 2019-06-18 11:52 | PC.NURSE ---
Late entry/30am-pt up to chair, attempted to urinate, unable. bladder scan done, 400 in bladder. New order received to put higgins back in. Additional pain medication also ordered.
--- NOTE | 2019-06-18 13:54 | PC.NURSE ---
Assisted pt back up to chair. Tolerated well.
--- NOTE | 2019-06-18 17:55 | PC.NURSE ---
Pt pulling 750 on IS.
--- NOTE | 2019-06-18 17:59 | PC.NURSE ---
Dressing around CT changed.
[2019-06-19] VITALS (8 sets, daily range): BP systolic 117–125; BP diastolic 73–81; PULSE 71–76; RESP 16–20; TEMP 36.7–36.8; O2SAT 95–98
[2019-06-19] MEDS: morphine 4 mg/mL SDV 1 mL 1 MG IVP ×5 (00:17→23:09)
[2019-06-19] MEDS: ketorolac 30 mg/mL INJ IVP ×3 (03:03→21:01)
[2019-06-19] MEDS: ceFAZolin 1,000 MG in sodium chloride 0.9% (plus) 50 ML 100 MG IV (03:03)
--- NOTE | 2019-06-19 03:15 | PC.NURSE ---
0205 patient states that she feels like she is short of breath and is having trouble trying to breath. Nurse repositioned patient in bed and informed patient of adequate vital signs. patient then stated that her pain was a 9/10 and she believes that her pain is causing her to be short of breath. Nurse gave 1mg morphine per order for pain. patient stated that this did help with pain. now stating 4/10. all vitals are stable at this time. will continue to monitor.
--- NOTE | 2019-06-19 06:00 | XR_ITS ---
WS: [id number] CHEST XRAY TECHNIQUE: Portable chest. CLINICAL INFORMATION: Postop day #2 status post right upper lobectomy; chest tube to waterseal COMPARISON: June 18, 2019 FINDINGS: Heart: Normal cardiac silhouette. Lungs: Postoperative right middle lobectomy. Right chest tube in place. No visualized pneumothorax. T race residual subcutaneous emphysema along the right lateral chest wall. Lungs well aerated. Bones: Normal visualized bony structures. XR/XR chest 1V portable [id number] IMPRESSION: 1. Postoperative right middle lobectomy. 2. Right chest tube. No visualized pneumothorax.
--- NOTE | 2019-06-19 06:13 | PM.PN ---
Subjective Subjective: Interval history: Postop day #2 status post right middle lobectomy. Nursing service reports chest tube output about 120 cc overnight. No air leak noted on chest tube which is to Pleur-evac suction. Pain appears better good control. Chest x-ray remains clear. Afebrile. With stable vital signs. Vitals/I&O/Wt Last Vital Signs Temp 98.9 F 06/18/19 17:15 Pulse 68 06/18/19 18:00 Resp 19 H 06/19/19 02:13 BP 111/84 06/18/19 18:00 Pulse Ox 95 06/19/19 02:13 06/18/19 06/18/19 06/19/19 14:59 22:59 06:59 Intake Total 1551.667 / 8316.241 9560 / 3461.667 1038 / 4499.667 Output Total 300 / 300 2350 / 2650 570 / 3220 Balance 1251.667 / 1251.667 -440 / 811.667 468 / 1279.667 Physical Exam Chest: COMMONS NORMALS: inspection of chest normal (Incisional dressing and chest tube site clean) Resp: COMMON NORMALS: normal respiratory effort, no retractions and clear to auscultation bilaterally AUSCULTATION: clear to auscultation bilaterally Cardio: COMMON NORMALS: regular rate and regular rhythm RATE: regular rate RHYTHM: regular rhythm Urinary Catheter Management^: Barnes: Cath Placed During This Visit: yes, but has since been removed by the nurse Reason for Continuing Indwelling Catheter: Accurate Measurement of Urinary Output in Critically Ill Patients Urinary Catheter Date of Insertion: 06/17/19 Urinary Catheter Time of Insertion: 11:45 Date Urinary Catheter Removed: 06/18/19 Time Urinary Catheter Discontinued: 07:30 Data : 06/18/19 04:25 06/18/19 04:25 A&P Assessment and plan (1) Status post lobectomy of lung: Postop day #2 status post right middle lobectomy Chest tube to waterseal Out of bed Continue incentive spirometry Transfer to ortiz. Status: Acute Attestations Medical Necessity Statement*: Postop day 2 status post right middle lobectomy Coding Level of Care Code Acute Director Of Rehabilitative Services for Chg Fwd Diagnoses Status post lobectomy of lung Z90.2
[2019-06-19] MEDS: HYDROcodone-acetaminophen 5-325 mg Tablet 1 TAB PO ×3 (06:44→20:09)
--- NOTE | 2019-06-19 06:45 | PC.NURSE ---
Per MD medication Hydrocodone 5/325 to be given to assess for reaction. patient received yesterday with no reaction to the medication. Patient states that she is having 5/10 pain and agrees to take Hydrocodone under close care by ICU staff.
--- NOTE | 2019-06-19 07:08 | ANE.PACU2 ---
 Inpatient post-anesthesia follow up: Airway intact: Yes Vital signs: Temperature 98.9 F Pulse Rate [Apical ] 70 Pulse Rate 68 Respiratory Rate 19 Blood Pressure [Le ft Arm] 106/71 Blood Pressure 111/84 Pulse Oximetry 95 Oxygen Delivery Me thod Room Air Oxygen Flow Rate 2 Fraction of Inspir ed Oxygen Hydration adequate: Yes Nausea and vomiting: No Mental status: Baseline Additional Comments: Setting of epidural were halved the night of surgery due to hypotension. pain in thorax well controlled, however did experience increased pain last night in her side. She was out of reach of her button, but this improved once she was able to press her button. She does continue to have signifcant shoulder pain, referred. i explained epidural would not help with shoulder pain. Patient encouraged to use her bolus button and if she experiences increased pain in her chest wall we can increase her epidural rate.
[2019-06-19] MEDS: ondansetron 2 mg/ML SDV 2 mL 4 MG IVP ×2 (07:22→12:14)
[2019-06-19] MEDS: pantoprazole DR 40 mg Tablet PO (07:37)
--- NOTE | 2019-06-19 10:39 | PC.RESP ---
Pulmonary Rehab information sent to patient for outpatient status.
--- NOTE | 2019-06-19 16:00 | PC.NURSE ---
1500-- REPORT CALLED TO RIYA ARTHUR. PT & PERSONAL BELONGINGS TO ROOM. PT AMBULATED TO ROOM 268 WITH SLOW STEADY PACE. WISHED WELL
[2019-06-20] VITALS (12 sets, daily range): BP systolic 117–142; BP diastolic 71–90; PULSE 64–85; RESP 16–20; TEMP 36.7–36.9; O2SAT 90–99
--- NOTE | 2019-06-20 01:04 | PC.NURSE ---
WHEN ASSESSING PT CHEST TUBE DRAINAGE SYSTEM , THIS NURSE NOTICED THAT THE MARKING ON THE ATRIUM WAS INCONSISTENT WITH THE AMOUNT OF DRAINAGE THE PATIENT ACTUALLY HAD. CORRECTED BY ANKLE PATCH MOLDER, WILL CONTINUE TO MONITOR.
[2019-06-20] MEDS: morphine 4 mg/mL SDV 1 mL 1 MG IVP ×4 (03:18→22:26)
[2019-06-20] MEDS: HYDROcodone-acetaminophen 5-325 mg Tablet 1 TAB PO ×4 (03:19→19:32)
--- NOTE | 2019-06-20 06:00 | XR_ITS ---
WS: [id number] CHEST XRAY TECHNIQUE: Portable chest. CLINICAL INFORMATION: Postop day #3 status post right middle lobectomy COMPARISON: June 19, 2019 FINDINGS: Heart: Normal cardiac silhouette. Lungs: Right chest tube in place. Status post right middle lobectomy. Trace pleural fluid with bibasi lar atelectasis. Bones: Mild thoracic curve convex left. XR/XR chest 1V portable [id number] IMPRESSION: 1. Right chest tube in place. No visualized pneumothorax. 2. Trace pleural fluid bilaterally.
--- NOTE | 2019-06-20 06:44 | P.PN_ITS ---
Subjective Subjective: Interval history: Postop day #3 status post right middle lobectomy. I have conferred with Dr. Banks from pathology. 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 Further immunostains are pending. The hilar lymph node biopsy was also positive. She is under a bit more discomfort in her right shoulder today, though she still has low chest tube output and no air leak with effective coughing. A bit of difficulty sleeping last night. Afebrile. Vital signs stable. Right lung remains clear. Chest tube is in good position on this morning's chest x-ray. Vitals/I&O/Wt Last Vital Signs Temp 98.1 F 06/20/19 03:40 Pulse 67 06/20/19 03:40 Resp 20 H 06/20/19 03:40 BP 132/82 06/20/19 03:40 Pulse Ox 95 06/20/19 03:40 06/19/19 06/19/19 06/20/19 14:59 22:59 06:59 Intake Total 1600 / 1600 300 / 1900 Output Total 1400 / 1400 1455 / 2855 1050 / 3905 Balance 200 / 200 -1155 / -955 -1050 / -2004 Physical Exam Chest: COMMONS NORMALS: inspection of chest normal (Chest wall is stable. No subcutaneous emphysema.) Resp: COMMON NORMALS: clear to auscultation bilaterally AUSCULTATION: clear to auscultation bilaterally Urinary Catheter Management^: Barnes: Cath Placed During This Visit: yes, but has since been removed by the nurse Reason for Continuing Indwelling Catheter: Acute Urinary Retention or Obstruction Urinary Catheter Date of Insertion: 06/17/19 Urinary Catheter Time of Insertion: 11:45 Date Urinary Catheter Removed: 06/18/19 Time Urinary Catheter Discontinued: 07:30 Data : 06/18/19 04:25 06/18/19 04:25 A&P Assessment and plan (1) Status post lobectomy of lung: Postop day #3 status post right upper lobectomy. Plan: I will plan to discontinue chest tube later today, with possible discharge tomorrow afternoon. Chest x-ray in a.m. 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
[2019-06-20] MEDS: TRAMadol 50 mg Tablet PO ×3 (08:13→20:40)
[2019-06-20] MEDS: ketorolac 30 mg/mL INJ IVP ×3 (08:13→23:04)
[2019-06-20] MEDS: pantoprazole DR 40 mg Tablet PO (08:14)
--- NOTE | 2019-06-20 13:42 | PC.NURSE ---
Patient epidural and chest tube removed. xerform and coverderm dressing applied to chest tube site, epidural removed and site covered with coverderm dressing. Patients surgical site painted with betadine and covered with coverderm. Patient tolerated well.
[2019-06-20] MEDS: ondansetron 2 mg/ML SDV 2 mL 4 MG IVP ×2 (15:02→22:26)
[2019-06-21] VITALS: BP 132/86; PULSE 65; RESP 18; TEMP 36.6; O2SAT 98
[2019-06-21 04:00] VITALS: BP 128/82; PULSE 72; RESP 17; TEMP 36.8; O2SAT 100
[2019-06-21] MEDS: HYDROcodone-acetaminophen 5-325 mg Tablet 1 TAB PO ×3 (04:22→11:23)
--- NOTE | 2019-06-21 06:00 | XR_ITS ---
WS: [id number] CHEST XRAY TECHNIQUE: Portable chest. CLINICAL INFORMATION: POD#4 s/p Right middle lobectomy COMPARISON: June 20, 2019 FINDINGS: Heart: Normal cardiac silhouette. Lungs: Right chest tube removed. No definite pneumothorax. Tiny bilateral pleural effusions. Lungs we ll aerated. Bones: Normal visualized bony structures. XR/XR chest 1V portable [id number] IMPRESSION: 1. Right chest tube removed. No visualized pneumothorax. 2. Tiny bilateral pleural effusions.
--- NOTE | 2019-06-21 06:44 | P.DS_ITS ---
Discharge Providers Date of Admission: 06/17/19 14:25 Date of Discharge: June 21, 2019 Attending Provider at Admission: Romaine Schwab MD Attending Provider at Discharge: Romaine Schwab MD Diagnoses at Discharge Discharge Diagnosis (1) Status post lobectomy of lung: Status: Acute Reason for Visit Reason for Visit: Reason For Visit: lung mass Hospital Course Hospital Course: Pleasant 43-year-old female with a discrete intensely PET positive right middle lobe lung mass. After undergoing outpatient preoperative testing, she was elected admitted on June 16 underwent right middle lobectomy and sampling of right hilar lymph nodes. Pathology has returned a spindle cell type of tumor which could potentially represent neuroendocrine or possible melanoma. Further studies are currently underway. Postop Carlos, she initially recovered in the ICU where she remained hemodynamically stable. Epidural catheter and narcotics provided good pain relief. She had good use of incentive spirometry. Very small air leak rapidly dissipated within approximately 24 to 36 hours. Low drainage from the chest tube. She was separately transferred to the ortiz which continued to do well. Chest tube was discontinued yesterday. Right lung is well-inflated without pneumothorax or fluid collection. No infiltrates. Incision is clean and dry. Tolerating diet well. She is eager for discharge. She will be discharged to home with home health services in stable condition. Physical Exam Chest: COMMONS NORMALS: inspection of chest normal (Thoracotomy incision clean and dry. Drain sites well approximated.) CHEST: Yes symmetrical chest wall rise Resp: COMMON NORMALS: normal respiratory effort and clear to auscultation bilaterally AUSCULTATION: clear to auscultation bilaterally Extremity: COMMON NORMALS: no clubbing, cyanosis or edema Urinary Catheter Management^: Barnes: Cath Placed During This Visit: yes, but has since been removed by the nurse Reason for Continuing Indwelling Catheter: Acute Urinary Retention or Obstruction Urinary Catheter Date of Insertion: 06/17/19 Urinary Catheter Time of Insertion: 11:45 Date Urinary Catheter Removed: 06/18/19 Time Urinary Catheter Discontinued: 07:30 Discharge Data Data Completed and Pending: Completed Studies During Hospitalization Category Date Time Status XR chest 1V lillian ble [id number] Routine Exams 06/17/19 14:41 Completed XR chest 1V lillian ble [id number] Routine Exams 06/18/19 04:41 Completed XR chest 1V lillian ble [id number] Routine Exams 06/19/19 06:00 Completed XR chest 1V lillian ble [id number] Routine Exams 06/20/19 06:00 Completed Pending at discharge Category Date Time Status XR chest 1V lillian ble [id number] Routine Exams 06/21/19 06:00 Taken PRBC [Leukocyte R educed RBC] Routin e Lab 06/12/19 12:53 Results Retype for XM Rou elise Lab 06/12/19 12:53 Results Type and Screen - Cardiac Routine Lab 06/12/19 12:53 Results Type and Screen R outine Lab 06/12/19 12:53 Results Pathology: Surgic al [PTH] Routine Pth 06/17/19 14:52 Received Vitals: Last Vital Signs Temp 98.2 F 06/21/19 04:00 Pulse 72 06/21/19 04:00 Resp 17 06/21/19 04:00 BP 128/82 06/21/19 04:00 Pulse Ox 100 06/21/19 04:00 Discharge Plan Discharge Patient Disposition: Home Health Service Condition: Stable Prescriptions: New hydrocodone-acetaminophen 5-325 mg Tablet 28 tab PO Q6H PRN (Reason: Moderate Pain) 7 Days Qty: 28 RF: 0 Continued ibuprofen 200 mg Capsule 200 mg PO Q6H PRN (Reason: Pain) RF: 0 ondansetron HCl [Zofran] 4 mg tablet 4 mg PO QID PRN (Reason: nausea and vomiting) Qty: 14 RF: 0 Discontinued acetaminophen [Tylenol Extra Strength] 500 mg Tablet 1,000 mg PO Q4H PRN (Reason: Pain) RF: 0 Discharge Orders: Discharge Order (Routine); Ordered 06/21/19 Ordered By: Romaine Schwab Referrals: Michael Ram [Referring] - 06/25/19 10:40 am ([facility] in [place], [place] [address]) Romaine Schwab MD [Physician] - 06/27/19 (With single view CXR on day of clinic visit) Discharge Diet: Usual diet Discharge Activity: Limit activity as instructed Activity Restrictions/Additional Instructions: May begin showers tomorrow Dry incisions completely. May cover, or leave open if desired Use incentive spirometer frequently No heavy lifting or pulling Report fever, productive cough, increasing pain, or shortness of breath. Discharge Attestations Time Spent in Discharge Care*: less than 30 min Specific Discharge Activities: Specific discharge activities: educating patient, discussing with director of casework/social workers/dc planners, documenting/other paperwork and evaluating patient/reviewing data Status at Discharge: Cognitive status at discharge: cognitively intact , Behavioral status at discharge: independent in ADL's , Functional status at discharge: independent ambulation Overall status at discharge: patient is progressing back to baseline Quality Metrics Clinical Quality Measures During this hospital stay, did patient experience: None Coding Level of Care Code 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
[2019-06-21 07:28] VITALS: BP 132/81; PULSE 58; RESP 18; TEMP 36.5; O2SAT 99
[2019-06-21] MEDS: TRAMadol 50 mg Tablet PO (07:28)
[2019-06-21] MEDS: pantoprazole DR 40 mg Tablet PO (08:28)
[2019-06-21 11:34] VITALS: BP 134/78; PULSE 69; RESP 18; TEMP 36.8; O2SAT 98
[2019-06-21 13:14] VITALS: BP 142/74; PULSE 75; RESP 18; TEMP 35.5; O2SAT 99
--- NOTE | 2019-06-21 15:04 | PC.NURSE ---
Patient has pain of 4 of 0-10 number scale. removed Iv, intact. no s/s of infection noted. pressure dressing applied.
== END 2019-06-21 13:17 | disposition home health service (06) | DRG 164 ==
LOC: ICU 14:25 → MEDSURG 06-19 15:20
PROVIDERS: Admitting Provider Thoracic Surgery (Cardiothoracic Vascular Surgery); Visit Provider Thoracic Surgery (Cardiothoracic Vascular Surgery)
PROC: 0BTD0ZZ Resection of Right Middle Lung Lobe, Open Approach (ICD-10-PCS; CPT 32480; principal; 2019-06-17 10:35)
DX: C34.2 Malignant neoplasm of middle lobe, bronchus or lung (principal); J95.812 Postprocedural air leak; I95.9 Hypotension, unspecified; F17.210 Nicotine dependence, cigarettes, uncomplicated
CPT/HCPCS: 12345; 36415; 51702; 71045; 80048; 81001; 81025; 84703; 85025; 85610; 86850; 86900; 86920; 87086; 88305; 88309; 96374; 96375; A4216; J0690; J1885; J2001; J2250; J2270; J2370; J2405; J2704; J2710; J2795; J3010; J3370; J3490

== ENCOUNTER 2019-07-02 13:58 | Outpatient (CLI) | payer MEDICAID, SELFPAY ==
--- NOTE | 2019-07-02 15:42 | ONC CON_ITS ---
Dr. Padgett New Patient Note Patient: Mimi Wick Unit #: [id number]: [id number] Dicatated By: Mica Padgett M.D.Date of Visit: July 02, 2019 Onc MED New Patient/Consult Referring Physician: Dr. Michael Ram M.D. History of Present Illness: Mrs. 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 And final pathology report showed stains positive for CK cocktail, CD 56, chromogranin A, CK Sylvester and HPA, & synaptophysin. And right hilar lymph node was positive for metastatic disease with tumor identical to right middle lobe mass e.g. neuroendocrine carcinoma As per patient patient went to [facility] with chest pain/panic attack and CT scan of chest was done which showed right middle lobe lung mass and there was also nodule and left lower lobe with no significant mediastinal lymphadenopathy. Underwent CT PET scan on 04/20/2019 which showed 1.9 x 3.5 cm right middle lobe mass with SUV of 5.5 strongly suggestive of malignancy. Multiple other pulmonary nodules measuring up to 5 mm size and too small to characterize. Uptake in the right hilum is atypical in 2 mediastinal background. Pancreatic body lesion measuring about 2.8 cm and is FDG negative. Patient was also complaining of chronic cough with off-and-on whitish to greenish phlegm but no shortness of breath or wheezing. Patient is a smoker and has been smoking 1/2 to 2 packs a day for more than 25 years but in February 2019 she quit smoking. Patient denies any history of hemoptysis or hematemesis patient denies any history of wheezing, or chronic diarrhea or, facial flushing. Patient denies any abdominal pain. Past Medical History: Ms. Zuritas medical history consists of history of tuberculosis and osteoarthritis. Past Surgical History: Ms. Galan surgical/procedural history consists of caesarean section - x3, right middle lobectomy, and tubal ligation. 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 Ms. Wick quit smoking less than one year ago but had smoked for 30 years. She has no history of drinking. Ms. Wick reports the following support systems: lives with spouse, significant other, family, or friends, lives in own house, supportive family/friends willing to assist with needs, and adequate transportation available for expected visits. Her diet consists of regular meals. She indicates her activity level as: light exercise. Family History: Ms. Wick's mother is alive. Ms. Wick's father at age 65: alcoholic cirrhosis. Review Of Symptoms: Review of Systems is not available for this patient. Vital Signs: Performed on July 02, 2019 14:40: 4, 1.47 (LOW), 2.51 sq.m, 175.6 in, 99 %, 79 /min, 18 /min, 112/76 mm(hg), 98.0 F (LOW), and 64.5 lbs (HIGH). Performance Status: 0 - Fully active, able to carry on all predisease activities without restrictions. (ECOG) Physical Examination: ENMT - no mouth sores or thrush, Respiratory - Lungs are clear, Cardiovascular - Regular rate and rhythm of heart, Abdomen - soft, bowel sounds present, Extremities - no visible edema, rash. Lab/Imaging: Most recent lab results are not available for this patient. Impression: Well differentiated neuroendocrine carcinoma (large cell type), intermediate grade(atypical carcinoid) immunohistochemistry stains positive for stains include CK cocktail, CD 56, chromogranin A, CK Sylvester, HPA, synaptophysin. 3 cm malignant neoplasm with no extension to bronchial margin, vascular margin. No visceral pleural involvement 1 right hilar lymph node was examined and showed metastatic disease Ki-67 demonstrates 5-10% positive nuclei. CT scan of chest showed right middle lobe mass and also a nodule in the left lower lobe with no significant mediastinal lymphadenopathy. CT PET scan done on 04/20/2019 showed 1.9 x 3.5 cm middle lobe mass with SUV of 5.5. Strongly suggestive of malignancy. Multiple other pulmonary nodules measuring up to 5 mm in the size and are too small to characterize with FDG imaging. Pancreatic body lesion measuring 2.8 cm and is FDG negative. Plan: Discussed with patient regarding her pathology and further options. Her final pathology report confirmed well-differentiated neuroendocrine carcinoma, intermediate grade e.g. atypical carcinoid with right hilar lymph node involvement. With a no carcinoid related symptoms e.g. bronchial wheezing, diarrhea or facial flushing. But her initial CT scan of chest showed bilateral pulmonary nodules and also concerned about pancreatic nodule although it was FDG negative. Considering patient's young age and clinical presentation we will refer her to neuroendocrine oncology clinic at [place] for evaluation for clinical trial and dotatate scan to evaluate extent of disease, e.g. metastatic disease. In the meantime , we'll check serum chromogranin A level, serotonin level and 24-hour urine for 5-HIAA. Next Patient return to clinic 1 week after her visit to [facility] for further discussion. Signed By: Mica Padgett M.D. <<Signature on File>>
== END 2019-07-02 13:59 | disposition home or self-care (01) ==
LOC: ONCMED 14:03
PROVIDERS: PCP Family Medicine; Referring Provider Family Medicine; Visit Provider Internal Medicine Hematology & Oncology
DX: C7A.090 Malignant carcinoid tumor of the bronchus and lung (principal); C7B.01 Secondary carcinoid tumors of distant lymph nodes; R91.8 Other nonspecific abnormal finding of lung field; R93.3 Abnormal findings on diagnostic imaging of other parts of digestive tract
CPT/HCPCS: 99203

== ENCOUNTER 2019-07-04 14:20 | Outpatient (CLI) | payer MEDICAID, SELFPAY ==
[2019-07-09 16:21] LABS: Serotonin Whole Blood 295 ng/mL (56-244)
[2019-07-10 16:51] LABS: Chromogranin A 66 ng/mL (25-140)
== END 2019-07-04 14:21 | disposition home or self-care (01) ==
LOC: ONCMED 16:34
PROVIDERS: PCP Family Medicine; Visit Provider Internal Medicine Hematology & Oncology
DX: C34.2 Malignant neoplasm of middle lobe, bronchus or lung (principal)
CPT/HCPCS: 36415; 84260; 86316

== ENCOUNTER 2019-08-09 08:22 | Outpatient (CLI) | payer MEDICAID, SELFPAY ==
--- NOTE | 2019-08-09 12:24 | ONC FU_ITS ---
Dr. Padgett follow up note Patient: Mimi Wick Unit #: [id number]: [id number] Dicatated By: Mica Padgett M.D.Date of Visit:Aug 09, 2019 Onc Med Follow-up/Prog Note History of Present Illness: Mrs. 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 And final pathology report showed stains positive for CK cocktail, CD 56, chromogranin A, CK Sylvester and HPA, & synaptophysin. And right hilar lymph node was positive for metastatic disease with tumor identical to right middle lobe mass e.g. neuroendocrine carcinoma As per patient patient went to [facility] with chest pain/panic attack and CT scan of chest was done which showed right middle lobe lung mass and there was also nodule and left lower lobe with no significant mediastinal lymphadenopathy. Underwent CT PET scan on 04/20/2019 which showed 1.9 x 3.5 cm right middle lobe mass with SUV of 5.5 strongly suggestive of malignancy. Multiple other pulmonary nodules measuring up to 5 mm size and too small to characterize. Uptake in the right hilum is atypical in 2 mediastinal background. Pancreatic body lesion measuring about 2.8 cm and is FDG negative. patient went to [facility] For second opinion and regarding clinical trials if available, and instead of seeing Dr. Acosta, she saw Dr. Grace on July 29, 2019, who reassured her and ordered Ga 68 dotatate PET/CT. As per patient no discussion about clinical trials or any other treatment occurred. Came for follow-up, denies any specific complaints, no fever or chills, no nausea or vomiting, no diarrhea or constipation but heartburn indigestion and mild queasiness and insomnia. Patient said her sister is in the medical profession and has recommended CBD oil and patient wants to try. Zofran is helping her queasiness but not acid reflux and she is taking [id number] medicine with some success. Denies any facial flushing, denies any wheezing, denies any diarrhea, denies any skin rash patient went to [facility], and instead of seeing Dr. Acosta, she saw Dr. Grace on July 29, 2019, who reassured her and ordered Ga 68 dotatate PET/CT. As per patient no discussion about clinical trials or any other treatment occurred. Medications: Acetaminophen 2 Capsule (of 500 mg) Oral daily PRN, HYDROcodone-Acetaminophen 1 Tablet (of 10-325 mg) Oral q 6 hours PRN, Ondansetron HCl 1 Tablet (of 4 mg) Oral q 8 hours PRN Allergies: Gabapentin Review of Systems: Constitutional - Appetite is fair and weight is stable. No fever, hot flashes. Energy level is fair. Occasional night sweats, ENMT - No sinus congestion/drainage. No mouth sores. No sore throat or difficulty swallowing, Hematologic/Lymphatic - Positve for easy bruising, Respiratory - Positive for shortness of breath. No cough. No pleuritic pain or hemoptysis, Cardiovascular - No angina pain. No palpitations, Gastrointestinal - Positive for nausea, no vomiting. Positive for heartburn and acid reflux. No diarrhea. Positive for constipation. No blood in the stool or black stools, Genitourinary (F) - No dysuria or hematuria. No urinary frequency. No urgency or incontinence, Musculoskeletal - Positive for joint pain, Neurologic - No headache or dizziness. No numbness or tingling. No other focal neurologic symptoms, Psychiatric - Positive for anxiety, no depression. No insomnia. Vital Signs: Performed on Aug 09, 2019 08:52 Height - 64.50 in (LOW) Weight - 178.8 lbs (HIGH) BSA - 1.88 sq.m BMI - 30.22 (HIGH) Temperature - 97.5 F (LOW) Pulse - 62 /min Respiration - 20 /min BP - 127/81 mm(hg) O2 Sat - 100 % Pain - 2 Performance Status: 0 - Fully active, able to carry on all predisease activities without restrictions. (ECOG) Physical Examination: ENMT - No mouth sores, no thrush, no jaundice, Respiratory - Lungs are clear to auscultation, Cardiovascular - Regular rate and rhythm of heart, Abdomen - Soft, bowel sounds present, Extremities - No visible edema or rash. Lab/Imaging: Test performed on July 18, 2019 10:00 Serotonin 269 ng/mL U 5 HIAA, 24hr 2.3 mg/24hr Chromogranin A 57 ng/mL Impression: Well differentiated neuroendocrine carcinoma (large cell type), intermediate grade(atypical carcinoid) immunohistochemistry stains positive for stains include CK cocktail, CD 56, chromogranin A, CK Sylvester, HPA, synaptophysin. 3 cm malignant neoplasm with no extension to bronchial margin, vascular margin. No visceral pleural involvement 1 right hilar lymph node was examined and showed metastatic disease Ki-67 demonstrates 5-10% positive nuclei. CT scan of chest showed right middle lobe mass and also a nodule in the left lower lobe with no significant mediastinal lymphadenopathy. CT PET scan done on 04/20/2019 showed 1.9 x 3.5 cm middle lobe mass with SUV of 5.5. Strongly suggestive of malignancy. Multiple other pulmonary nodules measuring up to 5 mm in the size and are too small to characterize with FDG imaging. Pancreatic body lesion measuring 2.8 cm and is FDG negative. Plan: Discussed with patient regarding her labs serotonin level 269, normal range is 56-244, 24-hour urine showed 5 HIAA level 2.3, normal being less than 6 mg/24 hours, chromogranin A level 57, normal being 25-140 ng/mL. Clinically, patient doing reasonably well but in mild to moderate distress due to recently developed acid reflux and insomnia and queasiness and she wants to try CBD oil for that again patient was informed regarding possible side effect especially, nausea fatigue, dry mouth, diarrhea, drowsiness, poor appetite were mentioned. And interactions with other drugs But as far as acid reflux is concerned, we will try Prevacid 30 mg p.o. every morning and she was advised to avoid spicy food and also refer her to GI for EGD to rule out gastric involvement with carcinoid and also check gastrin level. As per patient, she is still awaiting for her Ga 68 dotatate PET/CT scan but she was informed it may take 2 months before she get her turn., In that case we will consider follow-up CT scan of chest abdomen and if there is a disease progression we will discuss port treatment options. In the meantime I will discuss with Dr. Acosta regarding clinical trial. She will return to clinic after CT scan of chest abdomen done. Signed By: Mica Padgett M.D. <<Signature on File>>
== END 2019-08-09 08:23 | disposition home or self-care (01) ==
LOC: ONCMED 08:26
PROVIDERS: PCP Family Medicine; Visit Provider Internal Medicine Hematology & Oncology
DX: C7A.090 Malignant carcinoid tumor of the bronchus and lung (principal); C7B.01 Secondary carcinoid tumors of distant lymph nodes; K21.9 Gastro-esophageal reflux disease without esophagitis; G47.00 Insomnia, unspecified
CPT/HCPCS: 99214

== ENCOUNTER 2019-08-20 09:32 | Outpatient (CLI) | payer MEDICAID, SELFPAY ==
--- NOTE | 2019-08-20 09:44 | CT_ITS ---
WS: [id number] CT CHEST, ABDOMEN AND PELVIS WITH AND WITHOUT CONTRAST. HISTORY: RESTAGING/SHORT OF BREATH/PERSISTENT NAUSEA, CONSTIPATION TECHNIQUE: Noncontrast CT abdomen. Contiguous 5 mm axial imaging performed through the chest, abdomen and pelvis with IV contrast, oral contrast has been provided. Coronal and sagittal reformats chest. Coronal and sagittal reformats through the abdomen and pelvis. All CT scans at [facility] use at least one of these dose optimization techniques: automated exposure control; mA and/or kV adj ustment per patient size (includes targeted exams where dose is matched to clinical indication); or i terative reconstruction. CONTRAST: Omnipaque 300; 95 mL IV. DLP: 4.72 mGy.cm COMPARISON: 03/24/[address] 04/18/2019. Chest CT: RIGHT middle lobectomy. Previously described mass which was PET/CT positive is no longer pr esent. Now postsurgical changes and thickening along the RIGHT major fissure. Bilateral pulmonary nod ules are all stable in size since 03/24/2019. These additional nodules were negative on the PET/CT. Th e largest nodule measures 9 mm in the RIGHT lower lobe. There is a small layering RIGHT pleural effus ion and mild pleural thickening anteriorly. RIGHT hilar lymph node measures 16 mm. This lymph node wa s negative on the prior PET/CT but has increased in size. There are smaller hilar lymph nodes bilater ally. Heart size is normal. Small hiatal hernia. Abdomen CT: Liver is normal size. No evidence for metastatic disease. There is a small lymph node in the fat anterior to the RIGHT lobe of the liver which was also present on 04/20/2019. Gallbladder and spleen are negative. Cystic mass associated with the head and neck of the pancreas measures 2.8 x 2.0 cm and was negative on the recent PET/CT. No adrenal mass. Negative kidneys. Atherosclerosis of aort a. No adenopathy or free fluid. No GI tract obstruction. There is very mild diffuse wall thickening of the colon which could be due t o underdistention. There is no ascites or free fluid. Pelvic CT: No free fluid in the pelvis. There is no adenopathy. Uterus is midline with a small amount of fluid along the endometrial canal. Ovaries are normal size. No osteoblastic or osteolytic bone disease. CT/CT chest abd pel wo/w con IMPRESSION: 1. Status post RIGHT middle lobectomy. 2. Slight increase in size of the RIGHT hilar lymph node now measuring 16 mm i n short axis diameter. This lymph node was negative on the prior PET/CT. Due to the slight increase in size malignancy is not excluded. 3. Subcentimeter bilateral pulmonary nodules are stable and negative on PET/CT . 4. Stable cystic mass in the pancreas. 5. No metastatic disease to the liver or adrenal glands. 6. Atherosclerosis thoracic and abdominal aortas. 7. Mild diffuse colonic wall thickening. Mild colitis versus under distention. No ascites.
[2019-08-20] MEDS: iohexol 300 mg/mL 50 mL Btl PO (10:07)
[2019-08-20 10:53] LABS: Basophils # 0.1 10^3/uL (0.0-0.1); Basophils % 0.5 %; Eosinophils # 0.4 10^3/uL (0.0-0.8); Eosinophils % 3.9 %; Hematocrit 41.2 % (37.0-47.0); Lymphocytes # 3.4 10^3/uL (0.8-4.8); Lymphocytes % 30.5 %; Mean Corpuscular HGB Conc 31.6 g/dL (30.0-36.0); Mean Corpuscular Hemoglobin 25.9 pg (28.0-34.0); Mean Corpuscular Volume 82.1 fL (81-99); Mean Platelet Volume 9.4 fL (7.4-10.4); Monocytes # 0.6 10^3/uL (0.2-0.9); Neutrophils # 6.7 10^3/uL (1.8-7.7); Neutrophils % 59.8 %; Nucleated Red Blood Cells % 0 %; Platelet Count 368 10^3/cmm (130-400); Red Blood Count 5.02 10^6/uL (4.1-5.3); Red Cell Distribution Width 14.7 % (12.1-15.1); White Blood Count 11.2 10^3/uL (4.0-10.0)
[2019-08-20 11:08] LABS: Alanine Aminotransferase 13 U/L (0-33); Albumin Level 4.3 g/dL (3.5-5.2); Alkaline Phosphatase 90 IU/L (35-105); Anion Gap 15.1 (5-19); Aspartate Amino Transferase 17 U/L (0-32); Blood Urea Nitrogen 6 mg/dL (6-20); Calcium 9.5 mg/dL (8.5-10.5); Carbon Dioxide 26 mmol/L (22-29); Chloride 100 mmol/L (98-107); Globulin 3.6 g/dL (1.3-4.6); Glomerular Filtration Rate 135.3 mL/min (90-130); Glucose 101 mg/dL (65-115); Osmolality Calculated 280 mOsm/kg (285-295); Potassium 4.1 mmol/L (3.5-5.1); Sodium 137 mmol/L (136-145); Total Protein 7.9 g/dL (6.6-8.7)
[2019-08-20] MEDS: iohexol 300 mg/mL 100 mL Btl IV (11:52)
== END 2019-08-20 09:33 | disposition home or self-care (01) ==
LOC: CT 09:35
PROVIDERS: PCP Family Medicine; Visit Provider Internal Medicine Hematology & Oncology
DX: R06.02 Shortness of breath (principal); R11.0 Nausea; K59.00 Constipation, unspecified; Z90.2 Acquired absence of lung [part of]; R59.9 Enlarged lymph nodes, unspecified; R91.8 Other nonspecific abnormal finding of lung field; K86.89 Other specified diseases of pancreas; I70.0 Atherosclerosis of aorta
CPT/HCPCS: 36415; 71260; 74178; 80053; 82941; 85025

== ENCOUNTER 2019-08-22 08:14 | Outpatient (CLI) | payer MEDICAID, SELFPAY ==
--- NOTE | 2019-08-23 09:46 | ONC FU_ITS ---
Dr. Padgett follow up note Patient: Mimi Wick Unit #: [id number]: [id number] Dicatated By: Mica Padgett M.D.Date of Visit:Aug 22, 2019 Onc Med Follow-up/Prog Note History of Present Illness: Mrs. 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 And final pathology report showed stains positive for CK cocktail, CD 56, chromogranin A, CK Sylvester and HPA, & synaptophysin. And right hilar lymph node was positive for metastatic disease with tumor identical to right middle lobe mass e.g. neuroendocrine carcinoma As per patient patient went to [facility] with chest pain/panic attack and CT scan of chest was done which showed right middle lobe lung mass and there was also nodule and left lower lobe with no significant mediastinal lymphadenopathy. Underwent CT PET scan on 04/20/2019 which showed 1.9 x 3.5 cm right middle lobe mass with SUV of 5.5 strongly suggestive of malignancy. Multiple other pulmonary nodules measuring up to 5 mm size and too small to characterize. Uptake in the right hilum is atypical in 2 mediastinal background. Pancreatic body lesion measuring about 2.8 cm and is FDG negative. patient went to [facility] For second opinion and regarding clinical trials if available, and instead of seeing Dr. Grove, she saw Dr. Grace on July 29, 2019, who reassured her and ordered Ga 68 dotatate PET/CT. As per patient no discussion about clinical trials or any other treatment occurred. Came for follow-up, denies any specific complaints, no fever or chills, no nausea or vomiting, no diarrhea or constipation but heartburn indigestion and mild queasiness and insomnia. Patient said her sister is in the medical profession and has recommended CBD oil and patient wants to try. Zofran is helping her queasiness but not acid reflux and she is taking mqyc-jrd-[id number] medicine with some success. Denies any facial flushing, denies any wheezing, denies any diarrhea, denies any skin rash patient went to [facility], and instead of seeing Dr. Grove, she saw Dr. Grace on July 29, 2019, who reassured her and ordered Ga 68 dotatate PET/CT. As per patient no discussion about clinical trials or any other treatment occurred. As patient was told, it may take couple of months before she gets scheduled for dotatate CT PET scan, and patient has history of bilateral pulmonary nodules and pancreatic mass, she was concerned and anxious so follow-up CT scan of chest abdomen pelvis was done on August 20, 2019 which showed status post right middle lobectomy, slight increase in size of right hilar lymph node now measuring 16 mm in short axis diameter. This lymph node was negative on prior CT PET scan. Due to slight increase in size malignancy is not excluded. Subcentimeter bilateral pulmonary nodules are stable and negative on CT PET. Stable cystic mass in the pancreas. No metastatic disease to the liver or adrenal glands. Mild diffuse colonic wall thickening, mild colitis versus under distention. Came for follow-up, denies any specific complaints except off and on diarrhea alternating with constipation and occasionally abdominal pain.. Patient said she take [id number] Senokot for constipation. But no fever chills, no nausea or vomiting, no facial flushing, no bronchial wheezing, no jaundice, denies any melena or hematochezia. Denies any hematuria or dysuria. Medications: Acetaminophen 2 Capsule (of 500 mg) Oral daily PRN, HYDROcodone-Acetaminophen 1 Tablet (of 10-325 mg) Oral q 6 hours PRN, Lansoprazole 1 Capsule (of 30 mg) Capsule Delayed Release Oral daily, Ondansetron HCl 1 Tablet (of 4 mg) Oral q 8 hours PRN Allergies: Gabapentin Review of Systems: Constitutional - Appetite is fair and weight is stable. No fever, hot flashes. Energy level is fair. Occasional night sweats, ENMT - No sinus congestion/drainage. No mouth sores. No sore throat or difficulty swallowing, Hematologic/Lymphatic - Positve for easy bruising, Respiratory - Positive for shortness of breath. No cough. No pleuritic pain or hemoptysis, Cardiovascular - No angina pain. No palpitations, Gastrointestinal - Positive for nausea, no vomiting. Positive for heartburn and acid reflux. No diarrhea. Positive for constipation. No blood in the stool or black stools, Genitourinary (F) - No dysuria or hematuria. No urinary frequency. No urgency or incontinence, Musculoskeletal - Positive for joint pain, Neurologic - No headache or dizziness. No numbness or tingling. No other focal neurologic symptoms, Psychiatric - Positive for anxiety, no depression. No insomnia. Vital Signs: Performed on Aug 22, 2019 08:21 Height - 64.50 in Weight - 180.4 lbs (HIGH) BSA - 1.88 sq.m BMI - 30.49 (HIGH) Temperature - 97.8 F (LOW) Pulse - 74 /min Respiration - 24 /min BP - 119/80 mm(hg) O2 Sat - 100 % Pain - 4 Performance Status: 0 - Fully active, able to carry on all predisease activities without restrictions. (ECOG) Physical Examination: ENMT - No mouth sores, no thrush no jaundice, Respiratory - Lungs are clear, Cardiovascular - Regular rate and rhythm of heart, Abdomen - Soft, bowel sounds present, Extremities - No visible edema. Lab/Imaging: Test performed on Aug 08, 2019 13:30 Glucose 92 mg/dL BUN 7 mg/dL Creatinine 0.75 mg/dL Cr Clearance (Est) 125.11 mL/min Sodium 141 mmol/L Potassium 3.9 mmol/L Chloride 102 mmol/L CO2 29 mmol/L Calcium 9.2 mg/dL Protein, Total 6.9 g/dL Albumin 4.2 g/dL Globulin 2.7 g/dL Bilirubin, Total 0.8 mg/dL Alkaline Phosphatase 83 IU/L AST (SGOT) 19 IU/L ALT (SGPT) 17 IU/L WBC 11.0 10^9/L RBC 4.75 10^12/L HGB 12.1 g/dL HCT 37.6 % MCV 79.2 fl MCH 25.5 pg MCHC 32.2 g/dL RDW 14.6 % Platelet Count 376 10^9/L MPV 9.1 fL Neutrophils (Gran) 6237 10^9/L Lymphocytes 3608 10^9/L Monocytes 561 10^9/L Eosinophils 539 10^9/L Basophils 55 10^9/L Manual Lymphocytes 32.8 % Manual Monocytes 5.1 % Manual Eosinophils 4.9 % Manual Basophils 0.5 % Test performed on July 18, 2019 10:00 Serotonin 269 ng/mL U 5 HIAA, 24hr 2.3 mg/24hr Chromogranin A 57 ng/mL Impression: Well differentiated neuroendocrine carcinoma (large cell type), intermediate grade(atypical carcinoid) immunohistochemistry stains positive for stains include CK cocktail, CD 56, chromogranin A, CK Sylvester, HPA, synaptophysin. 3 cm malignant neoplasm with no extension to bronchial margin, vascular margin. No visceral pleural involvement 1 right hilar lymph node was examined and showed metastatic disease Ki-67 demonstrates 5-10% positive nuclei. CT scan of chest showed right middle lobe mass and also a nodule in the left lower lobe with no significant mediastinal lymphadenopathy. CT PET scan done on 04/20/2019 showed 1.9 x 3.5 cm middle lobe mass with SUV of 5.5. Strongly suggestive of malignancy. Multiple other pulmonary nodules measuring up to 5 mm in the size and are too small to characterize with FDG imaging. Pancreatic body lesion measuring 2.8 cm and is FDG negative. Plan: Discussed with patient regarding her labs white blood count 11.2 hemoglobin 13 crit 41.2 platelets 368,000 CMP within normal limits, serotonin is 269, 24-hour urine 5-HIAA level is 2.3, both are within normal range but chromogranin A level is 57, normal being less than [address] scan of the chest abdomen pelvis done on August 20, 2019 findings. Clinically, patient is doing well with no signs symptom suggestive of disease progression or recurrence. But her follow-up CT scan of the chest abdomen pelvis shows slight increase in the size of right hilar lymph node and this was negative on her prior CT PET scan and radiologist raised question regarding malignancy. But her bilateral pulmonary nodules they are stable and pancreatic cystic mass is also stable whereas biochemical profile including serotonin and 24-hour urine 5-HIAA were within normal range but chromogranin A level was slightly elevated, which could be due to certain food intake. As far as abnormal CT scan of chest e.g. new right hilar lymph node is concerned, as per patient she is being scheduled for dotatate CT PET scan at [place], will follow the results and if it shows disease progression or recurrence, will discuss her case with Dr. grove, neuroendocrine oncologist, regarding clinical trials if available. She is also scheduled for EGD on September 04, 2019, we will request Dr. Madrid to consider colonoscopy also as patient is having GI symptoms including off and on abdominal pain diarrhea/constipation and CT scan of abdomen shows mild diffuse colonic wall thickening. Patient will return to clinic after dotatate CT PET scan done at [facility] for further discussion. Signed By: Mica Padgett M.D. <<Signature on File>>
== END 2019-08-22 08:15 | disposition home or self-care (01) ==
LOC: ONCMED 08:16
PROVIDERS: PCP Family Medicine; Visit Provider Internal Medicine Hematology & Oncology
DX: C7A.090 Malignant carcinoid tumor of the bronchus and lung (principal); C7B.01 Secondary carcinoid tumors of distant lymph nodes; R59.0 Localized enlarged lymph nodes; R10.9 Unspecified abdominal pain; R19.7 Diarrhea, unspecified; K59.00 Constipation, unspecified
CPT/HCPCS: 99214

== ENCOUNTER 2019-09-04 08:17 | Day surgery (SDC) | payer MEDICAID, SELFPAY ==
[2019-09-02 13:58] VITALS: BMI 30.7
[2019-09-04 08:27] VITALS: BP 105/65; PULSE 80; RESP 18; TEMP 36.2; O2SAT 99
[2019-09-04] MEDS: sodium chloride 0.9% 1,000 ML 30 ML IV (08:39)
[2019-09-04 08:40] LABS: OR HCG Qualitative Urine Negative (Negative)
--- NOTE | 2019-09-04 08:54 | ANES.PREANE2 ---
Pre-Anesthetic Assessment Pre-Anesthetic Assessment: Height/Weight: Height 1.63 m Weight 81.193 kg Temp Pulse Resp BP Pulse Ox 97.1 F L 80 18 105/65 99 09/04/19 08:27 09/04/19 08:27 09/04/19 08:27 09/04/19 08:27 09/04/19 08:27 Preop Diagnosis: Colitis Proposed Procedure: Operation Date: 09/04/19 09:30 Proposed Procedures p EGD(Not Applicable) - Young Madrid MD s Colonoscopy(Not Applicable) - Young Madrid MD Last intake: Intake Last Liquid Date 09/03/19 Last Liquid Time 21:30 Last Solid Date 09/02/19 Last Solid Time 23:59 Social: Social History: Tobacco (quit 2019) and No alcohol Exam: Pre-Anes Outpt Exam: alert, oriented x 3, clear to auscultation bilaterally and regular rate & rhythm Airway: Submandibular: WNL Cervical ROM: WNL MP: 3 Dentition: Other (teeth ok) History/ROS: No significant history except as noted Pulmonary: Pulmonary: YAP Comments: h/o rt lobeectomy CV/HEM: CV/HEM: None reported : : None reported Hepatic: Hepatic: None reported GI: GI: GERD (controlled) Musc/skel: Musc/skel: OA/DJD Neuropsych: Neuropsych: Anxiety Anesthetic Plan: ASA status: 3 Anesthesia: Anesthesia Evaluation and MAC Risk of > 500 ml blood loss (7ml/kg in children): No Meds/Allergies Current Medications: Current Medications Generic Name Dose Route Start Last Admin Trade Name Freq PRN Reason Stop Dose Admin Sodium Chloride 1,000 mls @ 30 ml s/hr 09/04/19 08:30 09/04/19 08:39 Sodium Chloride 0.9% IV 09/05/19 08:29 30 mls/hr .Q24H MK Administration PFSH Anesthesia PFSH: Medical History Atypical carcinoid lung tumor Bursitis GERD (gastroesophageal reflux disease) Nausea Osteoarthritis Surgical History H/O tubal ligation History of 3 sections History of lung surgery Family History Other Cancer Diabetes Hypertension Social History Smoking and tobacco status: former smoker Quit status (tobacco): has quit using tobacco Year quit tobacco: 2019 - 1.5PPD x 30 Years Alcohol intake: never Lives independently: Yes Household members: none Marital status: Legally Current occupational status: employed Current occupational exposures/hazards: No History of recent travel: No Current gender identity: Female Female Reproductive History: Date of last menstrual period: 06/17/19 Data Anesthesia Other Labs: Laboratory Results - last 48 hr 09/04/19 08:37 Urine HCG, Qual Negative Cardiac Studies: No Data to Display
--- NOTE | 2019-09-04 09:46 | W.PM.OPSUD ---
Surgery/Procedure H&P Update DATE OF PROCEDURE: September 04, 2019 DATE H&P PERFORMED: 08/19/19 H&P UPDATE INFORMATION: I have reviewed H&P completed within last 30 days, I have examined patient prior to procedure and Changes to prior documentation as noted here (Patient undergone CT of the chest abdomen and pelvis and was reported to have mild thickness of the colon consequently the patient was advised to undergo a colonoscopy at the same time when she is undergoing the EGD) PREOP DIAGNOSIS: History of GERD /colitis/neuroendocrine tumor of the lung PRIMARY INDICATION FOR PROCEDURE: The same PLANNED PROCEDURE: Operation Date: 09/04/19 09:30 Proposed Procedures p EGD(Not Applicable) - Young Madrid MD s Colonoscopy(Not Applicable) - Young Madrid MD
[2019-09-04 10:10] VITALS: BP 93/67; PULSE 76; RESP 16; TEMP 36.3; O2SAT 99
--- NOTE | 2019-09-04 10:16 | ANE.PACU2 ---
Inpatient post-anesthesia follow up: Airway intact: Yes Vital signs: Temperature 97.3 F Pulse Rate 76 Respiratory Rate 16 Blood Pressure 93/67 Pulse Oximetry 99 Oxygen Delivery Me thod Nasal Cannula Oxygen Flow Rate 3 Fraction of Inspir ed Oxygen Hydration adequate: Yes Nausea and vomiting: No Pain level: 1 Mental status: Baseline
[2019-09-04 10:25] VITALS: BP 103/79; PULSE 80; RESP 18; TEMP 36.4; O2SAT 97
== END 2019-09-04 10:37 | disposition home or self-care (01) ==
PROVIDERS: Anesthesiology; PCP Family Medicine; Visit Provider Surgery
PROC: 0DJ08ZZ Inspection of Upper Intestinal Tract, Via Natural or Artificial Opening Endoscopic (ICD-10-PCS; CPT 43235; principal; 2019-09-04 09:30)
PROC: 0DJD8ZZ Inspection of Lower Intestinal Tract, Via Natural or Artificial Opening Endoscopic (ICD-10-PCS; CPT 45378; 2019-09-04 09:30)
DX: K21.9 Gastro-esophageal reflux disease without esophagitis (principal); R91.8 Other nonspecific abnormal finding of lung field; Z87.19 Personal history of other diseases of the digestive system; K29.70 Gastritis, unspecified, without bleeding; M19.90 Unspecified osteoarthritis, unspecified site; Z82.49 Family history of ischemic heart disease and other diseases of the circulatory system; Z83.3 Family history of diabetes mellitus; Z87.891 Personal history of nicotine dependence
CPT/HCPCS: 12345; 43235; 45378; 82274; 83630; 84703; 87493; 87506; J2704; J7030

== ENCOUNTER 2019-09-23 11:08 | Outpatient (CLI) | payer MEDICAID, SELFPAY ==
[2019-09-23 11:58] LABS: Basophils # 0.1 10^3/uL (0.0-0.1); Basophils % 0.5 %; Eosinophils # 0.6 10^3/uL (0.0-0.8); Eosinophils % 5.8 %; Hematocrit 41.4 % (37.0-47.0); Hemoglobin 12.7 g/dL (11.5-15.3); Lymphocytes # 3.4 10^3/uL (0.8-4.8); Lymphocytes % 32.2 %; Mean Corpuscular HGB Conc 30.7 g/dL (30.0-36.0); Mean Corpuscular Hemoglobin 25.4 pg (28.0-34.0); Mean Corpuscular Volume 82.8 fL (81-99); Mean Platelet Volume 9.6 fL (7.4-10.4); Monocytes # 0.6 10^3/uL (0.2-0.9); Monocytes % 5.5 %; Neutrophils # 5.83 10^3/uL (1.8-7.7); Neutrophils % 55.6 %; Nucleated Red Blood Cells % 0 %; Platelet Count 387 10^3/cmm (130-400); Red Cell Distribution Width 14.6 % (12.1-15.1); White Blood Count 10.5 10^3/uL (4.0-10.0)
[2019-09-23 12:16] LABS: Alanine Aminotransferase 10 U/L (0-33); Albumin Level 4.1 g/dL (3.5-5.2); Alkaline Phosphatase 87 IU/L (35-105); Anion Gap 15.6 (5-19); Aspartate Amino Transferase 16 U/L (0-32); Blood Urea Nitrogen 4 mg/dL (6-20); Calcium 8.6 mg/dL (8.5-10.5); Carbon Dioxide 23 mmol/L (22-29); Chloride 104 mmol/L (98-107); Globulin 3.2 g/dL (1.3-4.6); Glomerular Filtration Rate 109.1 mL/min (90-130); Glucose 119 mg/dL (65-115); Osmolality Calculated 285 mOsm/kg (285-295); Potassium 3.6 mmol/L (3.5-5.1); Sodium 139 mmol/L (136-145); Total Bilirubin 0.5 mg/dL (0.15-1.2); Total Protein 7.3 g/dL (6.6-8.7)
--- NOTE | 2019-09-23 13:47 | ONC FU_ITS ---
Dr. Padgett follow up note Patient: Mimi Wick Unit #: [id number]: [id number] Dicatated By: Mica Padgett M.D.Date of Visit:Sep 23, 2019 Onc Med Follow-up/Prog Note History of Present Illness: Mrs. 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 And final pathology report showed stains positive for CK cocktail, CD 56, chromogranin A, CK Sylvester and HPA, & synaptophysin. And right hilar lymph node was positive for metastatic disease with tumor identical to right middle lobe mass e.g. neuroendocrine carcinoma As per patient patient went to [facility] with chest pain/panic attack and CT scan of chest was done which showed right middle lobe lung mass and there was also nodule and left lower lobe with no significant mediastinal lymphadenopathy. Underwent CT PET scan on 04/20/2019 which showed 1.9 x 3.5 cm right middle lobe mass with SUV of 5.5 strongly suggestive of malignancy. Multiple other pulmonary nodules measuring up to 5 mm size and too small to characterize. Uptake in the right hilum is atypical in 2 mediastinal background. Pancreatic body lesion measuring about 2.8 cm and is FDG negative. patient went to [facility], and instead of seeing Dr. Acosta, she saw Dr. Grace on July 29, 2019, who reassured her and ordered Ga 68 dotatate PET/CT. As per patient no discussion about clinical trials or any other treatment occurred. As patient was told, it may take couple of months before she gets scheduled for dotatate CT PET scan, and patient has history of bilateral pulmonary nodules and pancreatic mass, she was concerned and anxious so follow-up CT scan of chest abdomen pelvis was done on August 20, 2019 which showed status post right middle lobectomy, slight increase in size of right hilar lymph node now measuring 16 mm in short axis diameter. This lymph node was negative on prior CT PET scan. Due to slight increase in size malignancy is not excluded. Subcentimeter bilateral pulmonary nodules are stable and negative on CT PET. Stable cystic mass in the pancreas. No metastatic disease to the liver or adrenal glands. Mild diffuse colonic wall thickening, mild colitis versus under distention. Came for follow-up, denies any specific complaints today, except mild nausea which is improving, patient recently underwent EGD and colonoscopy on September 04, 2019, as per patient it showed mild gastritis otherwise no abnormality, awaiting reports from Dr. Madrid's office. No hemoptysis or hematemesis, no shortness of breath no chest pain, no headaches blurred vision or double vision, no diarrhea or constipation, no facial flushing, no bronchial wheezing.Patient was supposed to get her Ga dotatate scan done at [place] but, as per patient she was running fever so she rescheduled it now waiting for reschedule date. Medications: Acetaminophen 2 Capsule (of 500 mg) Oral daily PRN, HYDROcodone-Acetaminophen 1 Tablet (of 10-325 mg) Oral q 6 hours PRN, Lansoprazole 1 Capsule (of 30 mg) Capsule Delayed Release Oral daily, Ondansetron HCl 1 Tablet (of 4 mg) Oral q 8 hours PRN Allergies: Gabapentin Review of Systems: Constitutional - Appetite is fair and weight is stable. No fever, hot flashes. Energy level is fair. Occasional night sweats, ENMT - No sinus congestion/drainage. No mouth sores. No sore throat or difficulty swallowing, Hematologic/Lymphatic - Positve for easy bruising, Respiratory - Positive for shortness of breath. No cough. No pleuritic pain or hemoptysis, Cardiovascular - No angina pain. No palpitations, Gastrointestinal - Positive for nausea, no vomiting. Positive for heartburn and acid reflux. No diarrhea. Positive for constipation. No blood in the stool or black stools, Genitourinary (F) - No dysuria or hematuria. No urinary frequency. No urgency or incontinence, Musculoskeletal - Positive for joint pain, Neurologic - No headache or dizziness. No numbness or tingling. No other focal neurologic symptoms, Psychiatric - Positive for anxiety, no depression. No insomnia. Vital Signs: Performed on Sep 23, 2019 12:42 Height - 64.50 in Weight - 177.4 lbs (LOW) BSA - 1.87 sq.m BMI - 29.98 Temperature - 98.4 F Pulse - 74 /min Respiration - 20 /min BP - 116/75 mm(hg) O2 Sat - 100 % Pain - 0 Performance Status: 0 - Fully active, able to carry on all predisease activities without restrictions. (ECOG) Physical Examination: ENMT - No mouth sores no thrush no jaundice, Respiratory - Lungs are clear, Cardiovascular - Regular rate and rhythm of heart, Abdomen - Soft, bowel sounds present, Extremities - No visible edema. Lab/Imaging: Test performed on Aug 20, 2019 10:31 Sodium 137 mmol/L Potassium 4.1 mmol/L Chloride 100 mmol/L CO2 26 mmol/L Anion Gap 15.1 BUN 6 mg/dL Creatinine 0.5 mg/dL Cr Clearance (Est) 187.41 mL/min eGFR 135.3 mL/min Glucose 101 mg/dL Calcium 9.5 mg/dL Protein, Total 7.9 g/dL Albumin 4.3 g/dL Globulin 3.6 g/dL Bilirubin, Total 1.0 mg/dL ALT (SGPT) 13 U/L AST (SGOT) 17 U/L Alkaline Phosphatase 90 IU/L WBC 11.2 10 3/uL RBC 5.02 10 6/uL HGB 13.0 g/dL HCT 41.2 % MCV 82.1 fL MCH 25.9 pg MCHC 31.6 g/dL RDW 14.7 % Platelet Count 368 10 3/cmm MPV 9.4 fL Neutrophils 6.7 10 3/uL Lymphocytes 3.4 10 3/uL Monocytes 0.6 10 3/uL Eosinophils 0.4 10 3/uL Basophils 0.1 10 3/uL Neutrophil % 59.8 % Lymphocyte % 30.5 % Monocyte % 5.0 % Eosinophil % 3.9 % Basophils % 0.5 % NRBC % 0 % Test performed on Aug 08, 2019 13:30 Manual Lymphocytes 32.8 % Manual Monocytes 5.1 % Manual Eosinophils 4.9 % Manual Basophils 0.5 % Test performed on July 18, 2019 10:00 Serotonin 269 ng/mL U 5 HIAA, 24hr 2.3 mg/24hr Chromogranin A 57 ng/mL Impression: Well differentiated neuroendocrine carcinoma (large cell type), intermediate grade(atypical carcinoid) immunohistochemistry stains positive for stains include CK cocktail, CD 56, chromogranin A, CK Sylvester, HPA, synaptophysin. 3 cm malignant neoplasm with no extension to bronchial margin, vascular margin. No visceral pleural involvement 1 right hilar lymph node was examined and showed metastatic disease Ki-67 demonstrates 5-10% positive nuclei. CT scan of chest showed right middle lobe mass and also a nodule in the left lower lobe with no significant mediastinal lymphadenopathy. CT PET scan done on 04/20/2019 showed 1.9 x 3.5 cm middle lobe mass with SUV of 5.5. Strongly suggestive of malignancy. Multiple other pulmonary nodules measuring up to 5 mm in the size and are too small to characterize with FDG imaging. Pancreatic body lesion measuring 2.8 cm and is FDG negative. Plan: Discussed with patient regarding her labs white blood count 10.5 hemoglobin 12.7 hematocrit 41.4 platelets 387 CMP within normal limits Clinically, patient is doing well with no new signs symptoms suggestive of disease progression, waiting for GI dotatate scan evaluation. Patient will call [facility] to reschedule it as soon as possible, she will return to clinic 1 week after her scan done for further discussion.In the meantime will obtain records from Dr. Madrid 's office regarding recent done EGD and colonoscopy Signed By: Mica Padgett M.D. <<Signature on File>>
== END 2019-09-23 11:09 | disposition home or self-care (01) ==
LOC: ONCMED 11:14
PROVIDERS: PCP Family Medicine; Visit Provider Internal Medicine Hematology & Oncology
DX: C7A.090 Malignant carcinoid tumor of the bronchus and lung (principal); C7B.01 Secondary carcinoid tumors of distant lymph nodes; R91.8 Other nonspecific abnormal finding of lung field; Z90.2 Acquired absence of lung [part of]
CPT/HCPCS: 80053; 85025; 99214

== ENCOUNTER 2019-10-30 13:43 | Outpatient (CLI) | payer MEDICAID, SELFPAY ==
--- NOTE | 2019-10-31 13:17 | ONC FU_ITS ---
Dr. Padgett follow up note Patient: Mimi Wick Unit #: [id number]: [id number] Dicatated By: Mica Padgett M.D.Date of Visit:Oct 30, 2019 Onc Med Follow-up/Prog Note History of Present Illness: Mrs. 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 And final pathology report showed stains positive for CK cocktail, CD 56, chromogranin A, CK Sylvester and HPA, & synaptophysin. And right hilar lymph node was positive for metastatic disease with tumor identical to right middle lobe mass e.g. neuroendocrine carcinoma As per patient patient went to [facility] with chest pain/panic attack and CT scan of chest was done which showed right middle lobe lung mass and there was also nodule and left lower lobe with no significant mediastinal lymphadenopathy. Underwent CT PET scan on 04/20/2019 which showed 1.9 x 3.5 cm right middle lobe mass with SUV of 5.5 strongly suggestive of malignancy. Multiple other pulmonary nodules measuring up to 5 mm size and too small to characterize. Uptake in the right hilum is atypical in 2 mediastinal background. Pancreatic body lesion measuring about 2.8 cm and is FDG negative. patient went to [facility], and instead of seeing Dr. Acosta, she saw Dr. Grace on July 29, 2019, who reassured her and ordered Ga 68 dotatate PET/CT. As per patient no discussion about clinical trials or any other treatment occurred. As patient was told, it may take couple of months before she gets scheduled for dotatate CT PET scan, and patient has history of bilateral pulmonary nodules and pancreatic mass, she was concerned and anxious so follow-up CT scan of chest abdomen pelvis was done on August 20, 2019 which showed status post right middle lobectomy, slight increase in size of right hilar lymph node now measuring 16 mm in short axis diameter. This lymph node was negative on prior CT PET scan. Due to slight increase in size malignancy is not excluded. Subcentimeter bilateral pulmonary nodules are stable and negative on CT PET. Stable cystic mass in the pancreas. No metastatic disease to the liver or adrenal glands. Mild diffuse colonic wall thickening, mild colitis versus under distention. Follow-up Ga dotatate done on October 22, 2019 showed mild dotatate avid right infrahilar lymph node, which has increased in size, suspicious for residual neuroendocrine disease. A small lymph node with similar uptake characteristic in the subcarinal region is also suspicious. Multiple additional bilateral pulmonary nodules the largest of which is in superior segment of right lower lobe and measures up to 11 mm. But showed no appreciable FDG or dotatate uptake could be a second primary or noncalcified granuloma Interval enlargement of right pericardiophrenic lymph node without appreciable dotatate activity indeterminate but favored to be reactive. 2.7 cm cystic lesion arising from the head of pancreas is incompletely characterized but may represent sidebranch IPMN. Came for follow-up, denies any specific complaints, no fever chills, no nausea or vomiting, no diarrhea constipation no shortness of breath or wheezing, no facial flushing, no skin rash, no jaundice no diarrhea or abdominal pain Medications: Acetaminophen 2 Capsule (of 500 mg) Oral daily PRN, HYDROcodone-Acetaminophen 1 Tablet (of 10-325 mg) Oral q 6 hours PRN, Lansoprazole 1 Capsule (of 30 mg) Capsule Delayed Release Oral daily, Ondansetron HCl 1 Tablet (of 4 mg) Oral q 8 hours PRN Allergies: Gabapentin Review of Systems: Review of Systems is not available for this patient. Vital Signs: Performed on Oct 30, 2019 13:57 Height - 64.50 in Weight - 177.4 lbs BSA - 1.87 sq.m BMI - 29.98 Temperature - 98.0 F (LOW) Pulse - 93 /min Respiration - 20 /min BP - 121/81 mm(hg) O2 Sat - 98 % Pain - 1 Performance Status: 0 - Fully active, able to carry on all predisease activities without restrictions. (ECOG) Physical Examination: ENMT - No mouth sores, no thrush, no jaundice, Respiratory - Lungs are clear, Cardiovascular - Regular rate and rhythm of heart, Abdomen - Soft, bowel sounds present, Extremities - No visible edema. Lab/Imaging: Test performed on Sep 23, 2019 11:23 Sodium 139 mmol/L Potassium 3.6 mmol/L Chloride 104 mmol/L CO2 23 mmol/L Anion Gap 15.6 BUN 4 mg/dL Creatinine 0.6 mg/dL Cr Clearance (Est) 153.58 mL/min eGFR 109.1 mL/min Glucose 119 mg/dL Calcium 8.6 mg/dL Protein, Total 7.3 g/dL Albumin 4.1 g/dL Globulin 3.2 g/dL Bilirubin, Total 0.5 mg/dL ALT (SGPT) 10 U/L AST (SGOT) 16 U/L Alkaline Phosphatase 87 IU/L WBC 10.5 10 3/uL RBC 5.00 10 6/uL HGB 12.7 g/dL HCT 41.4 % MCV 82.8 fL MCH 25.4 pg MCHC 30.7 g/dL RDW 14.6 % Platelet Count 387 10 3/cmm MPV 9.6 fL Neutrophils 5.83 10 3/uL Lymphocytes 3.4 10 3/uL Monocytes 0.6 10 3/uL Eosinophils 0.6 10 3/uL Basophils 0.1 10 3/uL Neutrophil % 55.6 % Lymphocyte % 32.2 % Monocyte % 5.5 % Eosinophil % 5.8 % Basophils % 0.5 % NRBC % 0 % Test performed on Aug 08, 2019 13:30 Manual Lymphocytes 32.8 % Manual Monocytes 5.1 % Manual Eosinophils 4.9 % Manual Basophils 0.5 % Test performed on July 18, 2019 10:00 Serotonin 269 ng/mL U 5 HIAA, 24hr 2.3 mg/24hr Chromogranin A 57 ng/mL Impression: Well differentiated neuroendocrine carcinoma (large cell type), intermediate grade(atypical carcinoid) immunohistochemistry stains positive for stains include CK cocktail, CD 56, chromogranin A, CK Sylvester, HPA, synaptophysin. 3 cm malignant neoplasm with no extension to bronchial margin, vascular margin. No visceral pleural involvement 1 right hilar lymph node was examined and showed metastatic disease Ki-67 demonstrates 5-10% positive nuclei. CT scan of chest showed right middle lobe mass and also a nodule in the left lower lobe with no significant mediastinal lymphadenopathy. CT PET scan done on 04/20/2019 showed 1.9 x 3.5 cm middle lobe mass with SUV of 5.5. Strongly suggestive of malignancy. Multiple other pulmonary nodules measuring up to 5 mm in the size and are too small to characterize with FDG imaging. Pancreatic body lesion measuring 2.8 cm and is FDG negative. Plan: Discussed with patient regarding her Ga dotatate scan reports which showed persistent activity right infrahilar lymph node and bilateral multiple pulmonary nodules measuring up to 11 mm in the superior segment of right lower lobe, could be additional site of neuroendocrine tumor or primary but none of them showed dotatate or FDG activity. Interval enlargement of right kaylah-cardiophrenic lymph node without appreciable dotatate activity is indeterminate but favored reactive. 2.7 cystic lesion arising from head of the pancreas is incompletely characterized but may represent a sidebranch IPMN. Patient has no signs symptom suggestive of disease progression but her dotatate scan shows uptake in right infrahilar lymph node as well as subcarinal lymph node is concerned, treatment options including observation versus referral to neuroendocrine oncology clinic at [place] for evaluation for clinical trial was discussed, patient opted for evaluation at neuroendocrine clinic at [place], will refer her to for evaluation. And she will return to clinic 1 week after her evaluation there Signed By: Mica Padgett M.D. <<Signature on File>>
== END 2019-10-30 13:44 | disposition home or self-care (01) ==
LOC: ONCMED 13:46
PROVIDERS: PCP Family Medicine; Visit Provider Internal Medicine Hematology & Oncology
DX: C7A.090 Malignant carcinoid tumor of the bronchus and lung (principal); M19.90 Unspecified osteoarthritis, unspecified site; Z86.11 Personal history of tuberculosis
CPT/HCPCS: 99214

== ENCOUNTER 2020-01-15 08:33 | Outpatient (CLI) | payer MEDICAID, SELFPAY ==
[2020-01-15 09:34] LABS: Basophils % 0.4 %; Eosinophils # 0.2 10^3/uL (0.0-0.8); Eosinophils % 2.1 %; Hematocrit 44.8 % (37.0-47.0); Hemoglobin 13.7 g/dL (11.5-15.3); Lymphocytes # 2.7 10^3/uL (0.8-4.8); Lymphocytes % 33.1 %; Mean Corpuscular HGB Conc 30.6 g/dL (30.0-36.0); Mean Corpuscular Hemoglobin 23.9 pg (28.0-34.0); Mean Platelet Volume 9.7 fL (7.4-10.4); Monocytes # 0.5 10^3/uL (0.2-0.9); Monocytes % 5.8 %; Neutrophils # 4.77 10^3/uL (1.8-7.7); Neutrophils % 58.4 %; Nucleated Red Blood Cells % 0 %; Platelet Count 431 10^3/cmm (130-400); Red Blood Count 5.74 10^6/uL (4.1-5.3); Red Cell Distribution Width 15.6 % (12.1-15.1); White Blood Count 8.2 10^3/uL (4.0-10.0)
[2020-01-15 09:58] LABS: Alanine Aminotransferase 13 U/L (0-33); Albumin Level 4.6 g/dL (3.5-5.2); Alkaline Phosphatase 101 IU/L (35-105); Anion Gap 13.2 (5-19); Aspartate Amino Transferase 13 U/L (0-32); Blood Urea Nitrogen 6 mg/dL (6-20); Calcium 9.4 mg/dL (8.5-10.5); Carbon Dioxide 28 mmol/L (22-29); Chloride 103 mmol/L (98-107); Globulin 3.1 g/dL (1.3-4.6); Glomerular Filtration Rate 109.1 mL/min (90-130); Glucose 96 mg/dL (65-115); Osmolality Calculated 287 mOsm/kg (285-295); Potassium 4.2 mmol/L (3.5-5.1); Sodium 140 mmol/L (136-145); Total Bilirubin 0.3 mg/dL (0.15-1.2); Total Protein 7.7 g/dL (6.6-8.7)
--- NOTE | 2020-01-15 14:06 | ONC FU_ITS ---
Dr. Padgett follow up note Patient: Mimi Wick Unit #: [id number]: 1975 Dicatated By: Mica Padgett M.D.Date of Visit:Jan 15, 2020 Onc Med Follow-up/Prog Note History of Present Illness: Mrs. 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 And final pathology report showed stains positive for CK cocktail, CD 56, chromogranin A, CK Sylvester and HPA, & synaptophysin. And right hilar lymph node was positive for metastatic disease with tumor identical to right middle lobe mass e.g. neuroendocrine carcinoma As per patient patient went to [facility] with chest pain/panic attack and CT scan of chest was done which showed right middle lobe lung mass and there was also nodule and left lower lobe with no significant mediastinal lymphadenopathy. Underwent CT PET scan on 04/20/2019 which showed 1.9 x 3.5 cm right middle lobe mass with SUV of 5.5 strongly suggestive of malignancy. Multiple other pulmonary nodules measuring up to 5 mm size and too small to characterize. Uptake in the right hilum is atypical in 2 mediastinal background. Pancreatic body lesion measuring about 2.8 cm and is FDG negative. patient went to [facility], and instead of seeing Dr. Acosta, she saw Dr. Grace on July 29, 2019, who reassured her and ordered Ga 68 dotatate PET/CT. As per patient no discussion about clinical trials or any other treatment occurred. As patient was told, it may take couple of months before she gets scheduled for dotatate CT PET scan, and patient has history of bilateral pulmonary nodules and pancreatic mass, she was concerned and anxious so follow-up CT scan of chest abdomen pelvis was done on August 20, 2019 which showed status post right middle lobectomy, slight increase in size of right hilar lymph node now measuring 16 mm in short axis diameter. This lymph node was negative on prior CT PET scan. Due to slight increase in size malignancy is not excluded. Subcentimeter bilateral pulmonary nodules are stable and negative on CT PET. Stable cystic mass in the pancreas. No metastatic disease to the liver or adrenal glands. Mild diffuse colonic wall thickening, mild colitis versus under distention. Follow-up Ga dotatate done on October 22, 2019 showed mild dotatate avid right infrahilar lymph node, which has increased in size, suspicious for residual neuroendocrine disease. A small lymph node with similar uptake characteristic in the subcarinal region is also suspicious. Multiple additional bilateral pulmonary nodules the largest of which is in superior segment of right lower lobe and measures up to 11 mm. But showed no appreciable FDG or dotatate uptake could be a second primary or noncalcified granuloma Interval enlargement of right pericardiophrenic lymph node without appreciable dotatate activity indeterminate but favored to be reactive. 2.7 cm cystic lesion arising from the head of pancreas is incompletely characterized but may represent sidebranch IPMN. Came for follow-up, denies any specific complaint except generalized weakness and fatigue as per patient she did develop pneumonia about a month ago at that time she was treated with Z-Sheldon and COVID-19 was negative. But denies any facial flushing denies any bronchial wheezing denies any diarrhea denies any abdominal pain denies any jaundice denies any hemoptysis or hematemesis. Medications: Acetaminophen 2 Capsule (of 500 mg) Oral daily PRN, HYDROcodone-Acetaminophen 1 Tablet (of 10-325 mg) Oral q 6 hours PRN, Lansoprazole 1 Capsule (of 30 mg) Capsule Delayed Release Oral daily, Ondansetron HCl 1 Tablet (of 4 mg) Oral q 8 hours PRN Allergies: Gabapentin Review of Systems: Review of Systems is not available for this patient. Vital Signs: Performed on Jan 15, 2020 10:36 Height - 64.50 in Weight - 161.6 lbs (LOW) BSA - 1.80 sq.m BMI - 27.31 Temperature - 97.5 F (LOW) Pulse - 68 /min Respiration - 24 /min BP - 130/92 mm(hg) O2 Sat - 100 % Pain - 0 Performance Status: 0 - Fully active, able to carry on all predisease activities without restrictions. (ECOG) Physical Examination: ENMT - No mouth sores, no thrush, no jaundice, Respiratory - Lungs are clear to auscultation, Cardiovascular - Regular rate and rhythm of heart, Abdomen - Soft, bowel sounds present, Extremities - No visible edema or rash. Lab/Imaging: Test performed on Sep 23, 2019 11:23 Sodium 139 mmol/L Potassium 3.6 mmol/L Chloride 104 mmol/L CO2 23 mmol/L Anion Gap 15.6 BUN 4 mg/dL Creatinine 0.6 mg/dL Cr Clearance (Est) 153.58 mL/min eGFR 109.1 mL/min Glucose 119 mg/dL Calcium 8.6 mg/dL Osmolality - Calculated 285 mOsm/kg Protein, Total 7.3 g/dL Albumin 4.1 g/dL Globulin 3.2 g/dL Bilirubin, Total 0.5 mg/dL ALT (SGPT) 10 U/L AST (SGOT) 16 U/L Alkaline Phosphatase 87 IU/L WBC 10.5 10 3/uL RBC 5.00 10 6/uL HGB 12.7 g/dL HCT 41.4 % MCV 82.8 fL MCH 25.4 pg MCHC 30.7 g/dL RDW 14.6 % Platelet Count 387 10 3/cmm MPV 9.6 fL Neutrophils 5.83 10 3/uL Lymphocytes 3.4 10 3/uL Monocytes 0.6 10 3/uL Eosinophils 0.6 10 3/uL Basophils 0.1 10 3/uL Neutrophil % 55.6 % Lymphocyte % 32.2 % Monocyte % 5.5 % Eosinophil % 5.8 % Basophils % 0.5 % NRBC % 0 % Test performed on Aug 08, 2019 13:30 Manual Lymphocytes 32.8 % Manual Monocytes 5.1 % Manual Eosinophils 4.9 % Manual Basophils 0.5 % Impression: Well differentiated neuroendocrine carcinoma (large cell type), intermediate grade(atypical carcinoid) immunohistochemistry stains positive for stains include CK cocktail, CD 56, chromogranin A, CK Sylvester, HPA, synaptophysin. 3 cm malignant neoplasm with no extension to bronchial margin, vascular margin. No visceral pleural involvement 1 right hilar lymph node was examined and showed metastatic disease Ki-67 demonstrates 5-10% positive nuclei. CT scan of chest showed right middle lobe mass and also a nodule in the left lower lobe with no significant mediastinal lymphadenopathy. CT PET scan done on 04/20/2019 showed 1.9 x 3.5 cm middle lobe mass with SUV of 5.5. Strongly suggestive of malignancy. Multiple other pulmonary nodules measuring up to 5 mm in the size and are too small to characterize with FDG imaging. Pancreatic body lesion measuring 2.8 cm and is FDG negative. Plan: Discussed with patient regarding her labs white blood count 8.2 hemoglobin 13.7 hematocrit 44.8 platelets 431,000 CMP within normal limits Clinically, patient doing reasonably well with no new signs symptoms just developed recurrence of disease. Now being monitored. Patient said she got a call from [facility] and they suggested as her neuroendocrine tumor was involving lungs so she should see pulling machine operator that then neuroendocrine clinic. Patient would see Dr. Grace, pulling machine operator who has seen her in July 2019 to discuss about her Ga 68 DOTATOC PET scan and she will return to clinic in 3 months with CBC CMP. Signed By: Mica Padgett M.D. <<Signature on File>>
== END 2020-01-15 08:34 | disposition home or self-care (01) ==
LOC: ONCMED 08:35
PROVIDERS: PCP Family Medicine; Visit Provider Internal Medicine Hematology & Oncology
DX: C7A.090 Malignant carcinoid tumor of the bronchus and lung (principal); C7B.01 Secondary carcinoid tumors of distant lymph nodes
CPT/HCPCS: 36415; 80053; 85025; G0463

== ENCOUNTER 2020-04-23 14:29 | Outpatient (CLI) | payer MEDICAID, SELFPAY ==
[2020-04-23 15:33] LABS: Basophils # 0.1 10^3/uL (0.0-0.1); Basophils % 0.4 %; Eosinophils # 0.1 10^3/uL (0.0-0.8); Eosinophils % 1.2 %; Hematocrit 39.8 % (37.0-47.0); Hemoglobin 12.5 g/dL (11.5-15.3); Lymphocytes # 3.2 10^3/uL (0.8-4.8); Lymphocytes % 28.3 %; Mean Corpuscular HGB Conc 31.4 g/dL (30.0-36.0); Mean Corpuscular Hemoglobin 24.1 pg (28.0-34.0); Mean Corpuscular Volume 76.8 fL (81-99); Mean Platelet Volume 9.7 fL (7.4-10.4); Monocytes # 0.7 10^3/uL (0.2-0.9); Monocytes % 5.7 %; Neutrophils # 7.29 10^3/uL (1.8-7.7); Nucleated Red Blood Cells % 0 %; Platelet Count 394 10^3/cmm (130-400); Red Blood Count 5.18 10^6/uL (4.1-5.3); Red Cell Distribution Width 15.4 % (12.1-15.1); White Blood Count 11.4 10^3/uL (4.0-10.0)
[2020-04-23 15:50] LABS: Alanine Aminotransferase 12 U/L (0-33); Albumin Level 4.4 g/dL (3.5-5.2); Alkaline Phosphatase 79 IU/L (35-105); Anion Gap 10.3 (5-19); Aspartate Amino Transferase 16 U/L (0-32); Blood Urea Nitrogen 7 mg/dL (6-20); Calcium 9.2 mg/dL (8.5-10.5); Carbon Dioxide 28 mmol/L (22-29); Chloride 102 mmol/L (98-107); Globulin 3.1 g/dL (1.3-4.6); Glomerular Filtration Rate 134.7 mL/min (90-130); Glucose 93 mg/dL (65-115); Osmolality Calculated 282 mOsm/kg (285-295); Potassium 3.3 mmol/L (3.5-5.1); Sodium 137 mmol/L (136-145); Total Bilirubin 0.8 mg/dL (0.15-1.2); Total Protein 7.5 g/dL (6.6-8.7)
--- NOTE | 2020-04-23 16:41 | ONC FU_ITS ---
Dr. Padgett follow up note Patient: Mmii Wick Unit #: [id number]: 1975 Dicatated By: Mica Padgett M.D.Date of Visit:Apr 23, 2020 Onc Med Follow-up/Prog Note History of Present Illness: Mrs. 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 And final pathology report showed stains positive for CK cocktail, CD 56, chromogranin A, CK Sylvester and HPA, & synaptophysin. And right hilar lymph node was positive for metastatic disease with tumor identical to right middle lobe mass e.g. neuroendocrine carcinoma As per patient patient went to [facility] ER with chest pain/panic attack and CT scan of chest was done which showed right middle lobe lung mass and there was also nodule and left lower lobe with no significant mediastinal lymphadenopathy. Underwent CT PET scan on 04/20/2019 which showed 1.9 x 3.5 cm right middle lobe mass with SUV of 5.5 strongly suggestive of malignancy. Multiple other pulmonary nodules measuring up to 5 mm size and too small to characterize. Uptake in the right hilum is atypical in 2 mediastinal background. Pancreatic body lesion measuring about 2.8 cm and is FDG negative. patient went to [facility], and instead of seeing Dr. Acosta, she saw Dr. Grace on July 29, 2019, who reassured her and ordered Ga 68 dotatate PET/CT. As per patient no discussion about clinical trials or any other treatment occurred. As patient was told, it may take couple of months before she gets scheduled for dotatate CT PET scan, and patient has history of bilateral pulmonary nodules and pancreatic mass, she was concerned and anxious so follow-up CT scan of chest abdomen pelvis was done on August 20, 2019 which showed status post right middle lobectomy, slight increase in size of right hilar lymph node now measuring 16 mm in short axis diameter. This lymph node was negative on prior CT PET scan. Due to slight increase in size malignancy is not excluded. Subcentimeter bilateral pulmonary nodules are stable and negative on CT PET. Stable cystic mass in the pancreas. No metastatic disease to the liver or adrenal glands. Mild diffuse colonic wall thickening, mild colitis versus under distention. Follow-up Ga dotatate done on October 22, 2019 showed mild dotatate avid right infrahilar lymph node, which has increased in size, suspicious for residual neuroendocrine disease. A small lymph node with similar uptake characteristic in the subcarinal region is also suspicious. Multiple additional bilateral pulmonary nodules the largest of which is in superior segment of right lower lobe and measures up to 11 mm. But showed no appreciable FDG or dotatate uptake could be a second primary or noncalcified granuloma Interval enlargement of right pericardiophrenic lymph node without appreciable dotatate activity indeterminate but favored to be reactive. 2.7 cm cystic lesion arising from the head of pancreas is incompletely characterized but may represent sidebranch IPMN. Came for follow-up, complaining of facial flushing for the last couple of months and off and on pain/discomfort in substernal area and under right scapula. Also complaining of dry cough as patient has started smoking again for the last couple of months. Off and on night sweats but no peripheral lymphadenopathy, no recurrent fever, no hemoptysis or hematemesis, no nausea or vomiting, no diarrhea or wheezing, no weight loss. Medications: Acetaminophen 2 Capsule (of 500 mg) Oral daily PRN, HYDROcodone-Acetaminophen 1 Tablet (of 10-325 mg) Oral q 6 hours PRN, Lansoprazole 1 Capsule (of 30 mg) Capsule Delayed Release Oral daily, Ondansetron HCl 1 Tablet (of 4 mg) Oral q 8 hours PRN Allergies: Gabapentin Review of Systems: Review of Systems is not available for this patient. Vital Signs: Performed on Apr 23, 2020 16:08 Height - 64.50 in Weight - 172.6 lbs (HIGH) BSA - 1.85 sq.m BMI - 29.17 Temperature - 98.0 F (LOW) Pulse - 87 /min Respiration - 20 /min BP - 132/86 mm(hg) O2 Sat - 99 % Pain - 4 Fatigue - 8 Performance Status: 0 - Fully active, able to carry on all predisease activities without restrictions. (ECOG) Physical Examination: ENMT - No mouth sores, no thrush, no jaundice, Respiratory - Poor air entry otherwise clear, Cardiovascular - Regular rate and rhythm of heart, Abdomen - Soft, bowel sounds present, Extremities - No visible edema. Lab/Imaging: Test performed on Jan 15, 2020 09:03 Sodium 140 mmol/L Potassium 4.2 mmol/L Chloride 103 mmol/L CO2 28 mmol/L Anion Gap 13.2 BUN 6 mg/dL Creatinine 0.6 mg/dL Cr Clearance (Est) 139.90 mL/min eGFR 109.1 mL/min Glucose 96 mg/dL Osmolality - Calculated 287 mOsm/kg Calcium 9.4 mg/dL Protein, Total 7.7 g/dL Albumin 4.6 g/dL Globulin 3.1 g/dL Bilirubin, Total 0.3 mg/dL ALT (SGPT) 13 U/L AST (SGOT) 13 U/L Alkaline Phosphatase 101 IU/L WBC 8.2 10 3/uL RBC 5.74 10 6/uL HGB 13.7 g/dL HCT 44.8 % MCV 78.0 fL MCH 23.9 pg MCHC 30.6 g/dL RDW 15.6 % Platelet Count 431 10 3/cmm MPV 9.7 fL Neutrophils 4.77 10 3/uL Lymphocytes 2.7 10 3/uL Monocytes 0.5 10 3/uL Eosinophils 0.2 10 3/uL Basophils 0.0 10 3/uL Neutrophil % 58.4 % Lymphocyte % 33.1 % Monocyte % 5.8 % Eosinophil % 2.1 % Basophils % 0.4 % NRBC % 0 % Impression: Well differentiated neuroendocrine carcinoma (large cell type), intermediate grade(atypical carcinoid) immunohistochemistry stains positive for stains include CK cocktail, CD 56, chromogranin A, CK Sylvester, HPA, synaptophysin. 3 cm malignant neoplasm with no extension to bronchial margin, vascular margin. No visceral pleural involvement 1 right hilar lymph node was examined and showed metastatic disease Ki-67 demonstrates 5-10% positive nuclei. CT scan of chest showed right middle lobe mass and also a nodule in the left lower lobe with no significant mediastinal lymphadenopathy. CT PET scan done on 04/20/2019 showed 1.9 x 3.5 cm middle lobe mass with SUV of 5.5. Strongly suggestive of malignancy. Multiple other pulmonary nodules measuring up to 5 mm in the size and are too small to characterize with FDG imaging. Pancreatic body lesion measuring 2.8 cm and is FDG negative. Plan: Discussed with patient regarding her labs white blood count 11.4 hemoglobin 12.5 hematocrit 39.8 platelets 394,000 MCV 76.8 Clinically, patient is doing reasonably well but now with off and on facial flushing and night sweats and discomfort in the chest so at this point, will consider octreotide scan or dotatate scan to assess disease status and also repeat serotonin, gastrin, chromogranin A level and 24-hour urine for 5-HIAA. Patient was advised to quit smoking and was offered any assistance she may need and she will return to clinic after above-mentioned work-up for further discussion. Signed By: Mica Padgett M.D. <<Signature on File>>
== END 2020-04-23 14:30 | disposition home or self-care (01) ==
LOC: ONCMED 14:32
PROVIDERS: PCP Family Medicine; Visit Provider Internal Medicine Hematology & Oncology
DX: C7A.090 Malignant carcinoid tumor of the bronchus and lung (principal); C7B.01 Secondary carcinoid tumors of distant lymph nodes; R23.2 Flushing; R61 Generalized hyperhidrosis; F17.210 Nicotine dependence, cigarettes, uncomplicated; Z79.899 Other long term (current) drug therapy
CPT/HCPCS: 36415; 80053; 85025; 99214

== ENCOUNTER 2020-05-20 09:33 | Outpatient (CLI) | payer MEDICAID, SELFPAY ==
[2020-05-26 19:48] LABS: Gastrin 21 pg/mL (< OR = 100)
[2020-05-28 23:32] LABS: Serotonin Whole Blood 251 ng/mL (56-244)
== END 2020-05-20 09:34 | disposition home or self-care (01) ==
LOC: ONCMED 09:38
PROVIDERS: PCP Family Medicine; Visit Provider Internal Medicine Hematology & Oncology
DX: C7A.090 Malignant carcinoid tumor of the bronchus and lung (principal)
CPT/HCPCS: 36415; 82941; 84260; 86316

== ENCOUNTER 2020-05-27 05:53 | Outpatient (CLI) | payer MEDICAID, SELFPAY ==
[2020-05-27 12:27] LABS: Magnesium 2.1 mg/dL (1.7-2.3)
--- NOTE | 2020-05-27 16:59 | ONC FU_ITS ---
Dr. Padgett follow up note Patient: Mimi Wick Unit #: [id number]: 1975 Dicatated By: Mica Padgett M.D.Date of Visit:May 27, 2020 Onc Med Follow-up/Prog Note History of Present Illness: Mrs. 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 And final pathology report showed stains positive for CK cocktail, CD 56, chromogranin A, CK Sylvester and HPA, & synaptophysin. And right hilar lymph node was positive for metastatic disease with tumor identical to right middle lobe mass e.g. neuroendocrine carcinoma As per patient patient went to [facility] [facility] with chest pain/panic attack and CT scan of chest was done which showed right middle lobe lung mass and there was also nodule and left lower lobe with no significant mediastinal lymphadenopathy. Underwent CT PET scan on 04/20/2019 which showed 1.9 x 3.5 cm right middle lobe mass with SUV of 5.5 strongly suggestive of malignancy. Multiple other pulmonary nodules measuring up to 5 mm size and too small to characterize. Uptake in the right hilum is atypical in 2 mediastinal background. Pancreatic body lesion measuring about 2.8 cm and is FDG negative. patient went to [facility], and instead of seeing Dr. Acosta, she saw Dr. Grace on July 29, 2019, who reassured her and ordered Ga 68 dotatate PET/CT. As per patient no discussion about clinical trials or any other treatment occurred. As patient was told, it may take couple of months before she gets scheduled for dotatate CT PET scan, and patient has history of bilateral pulmonary nodules and pancreatic mass, she was concerned and anxious so follow-up CT scan of chest abdomen pelvis was done on August 20, 2019 which showed status post right middle lobectomy, slight increase in size of right hilar lymph node now measuring 16 mm in short axis diameter. This lymph node was negative on prior CT PET scan. Due to slight increase in size malignancy is not excluded. Subcentimeter bilateral pulmonary nodules are stable and negative on CT PET. Stable cystic mass in the pancreas. No metastatic disease to the liver or adrenal glands. Mild diffuse colonic wall thickening, mild colitis versus under distention. Follow-up Ga dotatate done on October 22, 2019 showed mild dotatate avid right infrahilar lymph node, which has increased in size, suspicious for residual neuroendocrine disease. A small lymph node with similar uptake characteristic in the subcarinal region is also suspicious. Multiple additional bilateral pulmonary nodules the largest of which is in superior segment of right lower lobe and measures up to 11 mm. But showed no appreciable FDG or dotatate uptake could be a second primary or noncalcified granuloma Interval enlargement of right pericardiophrenic lymph node without appreciable dotatate activity indeterminate but favored to be reactive. 2.7 cm cystic lesion arising from the head of pancreas is incompletely characterized but may represent sidebranch IPMN. Follow-up dotatate PET scan done on May 21, 2020 showed persistent multiple rounded nodules throughout the bilateral lungs with these areas demonstrating varying degree of low-level gallium 68 uptake and index lesions in left upper lobe measuring 0.8 cm with SUV of 3.5, posterior right lower lobe size 0.5 cm SUV of 0.9, posterior segment right lower lobe measuring 1 x 1.4 cm with SUV of 1.3, right lung apex is 0.5 cm with SUV of 0.6 and left lower lobe mass is 0.5 cm with SUV 0.8 and stable lymph node or nodule within the right suprahilar region 1.8 x 2.0 cm with SUV of 3 no additional abnormality seen in the lung and no abnormality seen below diaphragm Came for follow-up, complaining of diarrhea but off and on and patient said she has been reading about neuroendocrine tumor on Internet and has joined neuroendocrine tumor support group and now adjusting her diet. With that her diarrhea is improving somewhat. Patient denies any facial flushing denies any bronchial wheezing denies any skin rash denies any abdominal cramps denies any melena or hematochezia Medications: Acetaminophen 2 Capsule (of 500 mg) Oral daily PRN, HYDROcodone-Acetaminophen 1 Tablet (of 10-325 mg) Oral q 6 hours PRN, Lansoprazole 1 Capsule (of 30 mg) Capsule Delayed Release Oral daily, Ondansetron HCl 1 Tablet (of 4 mg) Oral q 8 hours PRN Allergies: Gabapentin Review of Systems: Review of Systems is not available for this patient. Vital Signs: Performed on May 27, 2020 10:04 Height - 64.50 in Weight - 174.2 lbs (HIGH) BSA - 1.85 sq.m BMI - 29.44 Temperature - 98.0 F (LOW) Pulse - 83 /min Respiration - 20 /min BP - 146/86 mm(hg) (HIGH) O2 Sat - 100 % Pain - 5 Fatigue - 7 Performance Status: 0 - Fully active, able to carry on all predisease activities without restrictions. (ECOG) Physical Examination: ENMT - No mouth sores, no thrush, no jaundice, Respiratory - Lungs are clear to auscultation, Cardiovascular - Regular rate and rhythm of heart, Abdomen - Soft, bowel sounds present, Extremities - No visible edema. Lab/Imaging: Test performed on Jan 15, 2020 09:03 Sodium 140 mmol/L Potassium 4.2 mmol/L Chloride 103 mmol/L CO2 28 mmol/L Anion Gap 13.2 BUN 6 mg/dL Creatinine 0.6 mg/dL Cr Clearance (Est) 139.90 mL/min eGFR 109.1 mL/min Glucose 96 mg/dL Osmolality - Calculated 287 mOsm/kg Calcium 9.4 mg/dL Protein, Total 7.7 g/dL Albumin 4.6 g/dL Globulin 3.1 g/dL Bilirubin, Total 0.3 mg/dL ALT (SGPT) 13 U/L AST (SGOT) 13 U/L Alkaline Phosphatase 101 IU/L WBC 8.2 10 3/uL RBC 5.74 10 6/uL HGB 13.7 g/dL HCT 44.8 % MCV 78.0 fL MCH 23.9 pg MCHC 30.6 g/dL RDW 15.6 % Platelet Count 431 10 3/cmm MPV 9.7 fL Neutrophils 4.77 10 3/uL Lymphocytes 2.7 10 3/uL Monocytes 0.5 10 3/uL Eosinophils 0.2 10 3/uL Basophils 0.0 10 3/uL Neutrophil % 58.4 % Lymphocyte % 33.1 % Monocyte % 5.8 % Eosinophil % 2.1 % Basophils % 0.4 % NRBC % 0 % Impression: Well differentiated neuroendocrine carcinoma (large cell type), intermediate grade(atypical carcinoid) immunohistochemistry stains positive for stains include CK cocktail, CD 56, chromogranin A, CK Sylvester, HPA, synaptophysin. 3 cm malignant neoplasm with no extension to bronchial margin, vascular margin. No visceral pleural involvement 1 right hilar lymph node was examined and showed metastatic disease Ki-67 demonstrates 5-10% positive nuclei. CT scan of chest showed right middle lobe mass and also a nodule in the left lower lobe with no significant mediastinal lymphadenopathy. CT PET scan done on 04/20/2019 showed 1.9 x 3.5 cm middle lobe mass with SUV of 5.5. Strongly suggestive of malignancy. Multiple other pulmonary nodules measuring up to 5 mm in the size and are too small to characterize with FDG imaging. Pancreatic body lesion measuring 2.8 cm and is FDG negative. Follow-up dotatate PET scan done on May 21, 2020 showed stable bilateral multiple rounded nodules throughout the lungs with this area demonstrating varying degrees of low-level gallium-68 uptake, index lesion size varying from 0.5cm to 1 cm in bilateral lungs no abnormality seen below diaphragm Plan: Discussed with patient regarding her dotatate PET scan which shows stable bilateral pulmonary nodules and right hilar nodule no abnormality seen below diaphragm., Clinically, she is doing well except off and on diarrhea, and nausea, etiology is unclear could be due to functional neuroendocrine tumor, biochemical profile including 24-hour urine for 5-HIAA was ordered, labs were drawn last week and still pending patient did not go for 24-hour urine for 5-HIAA because of off and on diarrhea, if her biochemical profile shows elevated certain or chromogranin A level, we may give her a trial of Sandostatin to control her diarrhea on the other hand if is within normal range, then we may refer her to GI for evaluation. As far as mild nausea is concerned, we will try low-dose Xanax 0.25 mg 1 to 2 tablet every 6-8 hours as needed for nausea Patient will return to clinic in 3 months unless her follow-up biochemical profiling shows any abnormality then will have her come back earlier to try Sandostatin for her off and on diarrhea. Signed By: Mica Padgett M.D. <<Signature on File>>
== END 2020-05-27 05:54 | disposition home or self-care (01) ==
LOC: ONCMED 05:55
PROVIDERS: PCP Family Medicine; Visit Provider Internal Medicine Hematology & Oncology
DX: C7A.090 Malignant carcinoid tumor of the bronchus and lung (principal); C7B.01 Secondary carcinoid tumors of distant lymph nodes; R91.8 Other nonspecific abnormal finding of lung field; R19.7 Diarrhea, unspecified; R11.0 Nausea
CPT/HCPCS: 36415; 83735; 99214

== ENCOUNTER 2020-08-26 11:08 | Outpatient (CLI) | payer MEDICAID, SELFPAY ==
[2020-08-26 11:52] LABS: Basophils % 0.5 %; Eosinophils # 0.1 10^3/uL (0.0-0.8); Eosinophils % 1.2 %; Hematocrit 42.3 % (37.0-47.0); Hemoglobin 13.1 g/dL (11.5-15.3); Lymphocytes # 2.9 10^3/uL (0.8-4.8); Lymphocytes % 33.1 %; Mean Corpuscular Hemoglobin 23.8 pg (28.0-34.0); Mean Corpuscular Volume 76.9 fL (81-99); Mean Platelet Volume 9.4 fL (7.4-10.4); Monocytes # 0.5 10^3/uL (0.2-0.9); Monocytes % 5.6 %; Neutrophils # 5.13 10^3/uL (1.8-7.7); Neutrophils % 59.3 %; Nucleated Red Blood Cells % 0 %; Platelet Count 405 10^3/cmm (130-400); Red Cell Distribution Width 15.6 % (12.1-15.1); White Blood Count 8.6 10^3/uL (4.0-10.0)
[2020-08-26 12:23] LABS: Alanine Aminotransferase 10 U/L (0-33); Anion Gap 13.9 (5-19); Aspartate Amino Transferase 14 U/L (0-32); Blood Urea Nitrogen 6 mg/dL (6-20); Calcium 9.2 mg/dL (8.5-10.5); Carbon Dioxide 24 mmol/L (22-29); Chloride 106 mmol/L (98-107); Glucose 70 mg/dL (65-115); Osmolality Calculated 286 mOsm/kg (285-295); Potassium 3.9 mmol/L (3.5-5.1); Sodium 140 mmol/L (136-145); Total Bilirubin 0.7 mg/dL (0.15-1.2); Total Protein 7.1 g/dL (6.6-8.7)
[2020-08-26 12:24] LABS: Albumin Level 4.5 g/dL (3.5-5.2); Alkaline Phosphatase 88 IU/L (35-105); Globulin 2.6 g/dL (1.3-4.6)
== END 2020-08-26 11:09 | disposition home or self-care (01) ==
LOC: ONCMED 11:10
PROVIDERS: PCP Family Medicine; Visit Provider Internal Medicine Hematology & Oncology
DX: C34.2 Malignant neoplasm of middle lobe, bronchus or lung (principal); Z79.899 Other long term (current) drug therapy
CPT/HCPCS: 36415; 80053; 85025

== ENCOUNTER 2020-09-21 08:07 | Outpatient (CLI) | payer MEDICAID, SELFPAY ==
[2020-09-21 08:51] LABS: Basophils % 0.4 %; Eosinophils # 0.2 10^3/uL (0.0-0.8); Eosinophils % 2.1 %; Hematocrit 44.5 % (37.0-47.0); Hemoglobin 13.9 g/dL (11.5-15.3); Lymphocytes # 2.7 10^3/uL (0.8-4.8); Lymphocytes % 28.1 %; Mean Corpuscular HGB Conc 31.2 g/dL (30.0-36.0); Mean Corpuscular Hemoglobin 24.5 pg (28.0-34.0); Mean Corpuscular Volume 78.3 fL (81-99); Mean Platelet Volume 9.5 fL (7.4-10.4); Monocytes # 0.5 10^3/uL (0.2-0.9); Monocytes % 5.4 %; Neutrophils # 6.13 10^3/uL (1.8-7.7); Neutrophils % 63.6 %; Nucleated Red Blood Cells % 0 %; Platelet Count 422 10^3/cmm (130-400); Red Blood Count 5.68 10^6/uL (4.1-5.3); Red Cell Distribution Width 16.9 % (12.1-15.1); White Blood Count 9.6 10^3/uL (4.0-10.0)
[2020-09-21 09:10] LABS: Alanine Aminotransferase 10 U/L (0-33); Albumin Level 4.4 g/dL (3.5-5.2); Alkaline Phosphatase 83 IU/L (35-105); Anion Gap 15.5 (5-19); Aspartate Amino Transferase 13 U/L (0-32); Blood Urea Nitrogen 6 mg/dL (6-20); Calcium 8.5 mg/dL (8.5-10.5); Carbon Dioxide 23 mmol/L (22-29); Chloride 104 mmol/L (98-107); Globulin 2.9 g/dL (1.3-4.6); Glucose 87 mg/dL (65-115); Osmolality Calculated 285 mOsm/kg (285-295); Potassium 3.5 mmol/L (3.5-5.1); Sodium 139 mmol/L (136-145); Total Bilirubin 0.6 mg/dL (0.15-1.2); Total Protein 7.3 g/dL (6.6-8.7)
[2020-09-21 17:08] LABS: Ferritin 13 ng/mL (15-150); Iron 28 ug/dL (37-145); Percent Saturation 7.1 % (20-50); Total Iron Binding Capacity 394 mcg/dl; Unsaturated Iron Binding 366 ug/dL (112-347)
[2020-09-21 17:23] LABS: Vitamin B12 309 pg/mL (232-1245)
--- NOTE | 2020-09-22 17:09 | ONC FU_ITS ---
Dr. Padgett follow up note Patient: Mimi Wick Unit #: [id number]: 1975 Dicatated By: Mica Padgett M.D.Date of Visit:Sep 21, 2020 Onc Med Follow-up/Prog Note History of Present Illness: Mrs. 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 And final pathology report showed stains positive for CK cocktail, CD 56, chromogranin A, CK Sylvester and HPA, & synaptophysin. And right hilar lymph node was positive for metastatic disease with tumor identical to right middle lobe mass e.g. neuroendocrine carcinoma As per patient patient went to [facility] with chest pain/panic attack and CT scan of chest was done which showed right middle lobe lung mass and there was also nodule and left lower lobe with no significant mediastinal lymphadenopathy. Underwent CT PET scan on 04/20/2019 which showed 1.9 x 3.5 cm right middle lobe mass with SUV of 5.5 strongly suggestive of malignancy. Multiple other pulmonary nodules measuring up to 5 mm size and too small to characterize. Uptake in the right hilum is atypical in 2 mediastinal background. Pancreatic body lesion measuring about 2.8 cm and is FDG negative. patient went to [facility], and instead of seeing Dr. Acosta, she saw Dr. Grace on July 29, 2019, who reassured her and ordered Ga 68 dotatate PET/CT. As per patient no discussion about clinical trials or any other treatment occurred. As patient was told, it may take couple of months before she gets scheduled for dotatate CT PET scan, and patient has history of bilateral pulmonary nodules and pancreatic mass, she was concerned and anxious so follow-up CT scan of chest abdomen pelvis was done on August 20, 2019 which showed status post right middle lobectomy, slight increase in size of right hilar lymph node now measuring 16 mm in short axis diameter. This lymph node was negative on prior CT PET scan. Due to slight increase in size malignancy is not excluded. Subcentimeter bilateral pulmonary nodules are stable and negative on CT PET. Stable cystic mass in the pancreas. No metastatic disease to the liver or adrenal glands. Mild diffuse colonic wall thickening, mild colitis versus under distention. Follow-up Ga dotatate done on October 22, 2019 showed mild dotatate avid right infrahilar lymph node, which has increased in size, suspicious for residual neuroendocrine disease. A small lymph node with similar uptake characteristic in the subcarinal region is also suspicious. Multiple additional bilateral pulmonary nodules the largest of which is in superior segment of right lower lobe and measures up to 11 mm. But showed no appreciable FDG or dotatate uptake could be a second primary or noncalcified granuloma Interval enlargement of right pericardiophrenic lymph node without appreciable dotatate activity indeterminate but favored to be reactive. 2.7 cm cystic lesion arising from the head of pancreas is incompletely characterized but may represent sidebranch IPMN. Follow-up dotatate PET scan done on May 21, 2020 showed persistent multiple rounded nodules throughout the bilateral lungs with these areas demonstrating varying degree of low-level gallium 68 uptake and index lesions in left upper lobe measuring 0.8 cm with SUV of 3.5, posterior right lower lobe size 0.5 cm SUV of 0.9, posterior segment right lower lobe measuring 1 x 1.4 cm with SUV of 1.3, right lung apex is 0.5 cm with SUV of 0.6 and left lower lobe mass is 0.5 cm with SUV 0.8 and stable lymph node or nodule within the right suprahilar region 1.8 x 2.0 cm with SUV of 3 no additional abnormality seen in the lung and no abnormality seen below diaphragm Came for follow-up, complaining of generalized weakness and fatigue, and dizzy, had a fall but no blurred vision or double vision, no focal weakness except off and on weakness in her right hand. Denies any melena or hematochezia denies any hemoptysis or hematemesis, denies any diarrhea denies any bronchial wheezing denies any skin rash denies any jaundice denies any dysphagia denies any abdominal pain, appetite is good and weight is stable, as per patient sister she works too hard and longer shifts and not much rest in between Medications: Acetaminophen 2 Capsule (of 500 mg) Oral daily PRN, Lansoprazole 1 Capsule (of 30 mg) Capsule Delayed Release Oral daily, Ondansetron HCl 1 Tablet (of 4 mg) Oral q 8 hours PRN Allergies: Gabapentin Review of Systems: Review of Systems is not available for this patient. Vital Signs: Performed on Sep 21, 2020 09:45 Height - 64.50 in Weight - 169 lbs (LOW) BSA - 1.83 sq.m BMI - 28.56 Temperature - 97.8 F (LOW) Pulse - 75 /min Respiration - 18 /min BP - 132/82 mm(hg) O2 Sat - 97 % Pain - 3 Performance Status: 0 - Fully active, able to carry on all predisease activities without restrictions. (ECOG) Physical Examination: ENMT - No mouth sores, no thrush, no jaundice, Respiratory - Lungs are clear to auscultation, Cardiovascular - Regular rate and rhythm of heart, Abdomen - Soft, bowel sounds present, Extremities - No visible edema rash or focal weakness, neuro exam is intact. Lab/Imaging: Test performed on May 27, 2020 11:15 Magnesium 2.1 mg/dL Impression: Well differentiated neuroendocrine carcinoma (large cell type), intermediate grade(atypical carcinoid) immunohistochemistry stains positive for stains include CK cocktail, CD 56, chromogranin A, CK Sylvester, HPA, synaptophysin. 3 cm malignant neoplasm with no extension to bronchial margin, vascular margin. No visceral pleural involvement 1 right hilar lymph node was examined and showed metastatic disease Ki-67 demonstrates 5-10% positive nuclei. CT scan of chest showed right middle lobe mass and also a nodule in the left lower lobe with no significant mediastinal lymphadenopathy. CT PET scan done on 04/20/2019 showed 1.9 x 3.5 cm middle lobe mass with SUV of 5.5. Strongly suggestive of malignancy. Multiple other pulmonary nodules measuring up to 5 mm in the size and are too small to characterize with FDG imaging. Pancreatic body lesion measuring 2.8 cm and is FDG negative. Follow-up dotatate PET scan done on May 21, 2020 showed stable bilateral multiple rounded nodules throughout the lungs with this area demonstrating varying degrees of low-level gallium-68 uptake, index lesion size varying from 0.5cm to 1 cm in bilateral lungs no abnormality seen below diaphragm Plan: Discussed with patient regarding her labs white blood count 9.6 hemoglobin 13.9 hematocrit 44.5 MCV 78.3 platelets 422,000 CMP within normal limits and serotonin checked on May 20, 2020 was 251 which is elevated normal being less than 244, gastrin level was 21, patient was also recommended 24-hour urine for 5-HIAA, as per patient because of diarrhea she could not collect specimen Clinically, patient doing reasonably well but now with progressive weakness and fatigue off and on dizziness and with history of fall and now complaining 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 Concern is whether she may have metastatic disease to the brain, will consider MRI scan of the brain, patient was advised in case there is worsening of symptoms she need to go to hospital otherwise we will see her back after MRI scan of the brain done Her diarrhea is better with Imodium, We will also consider repeating her serotonin, chromogranin A level as well as 24-hour urine for 5-HIAA Her CBC shows hemoglobin normal range but low MCV could be due to iron deficiency other possibility could be hemoglobinopathy, will check iron studies Signed By: Mica Padgett M.D. <<Signature on File>>
[2020-09-25 17:42] LABS: Serotonin Whole Blood 245 ng/mL (56-244)
[2020-09-26 11:02] LABS: Chromogranin A LC/MS/MS 199 ng/mL (ADULTS: <311)
== END 2020-09-21 08:08 | disposition home or self-care (01) ==
PROVIDERS: PCP Family Medicine; Visit Provider Internal Medicine Hematology & Oncology
DX: C7A.090 Malignant carcinoid tumor of the bronchus and lung (principal); C77.1 Secondary and unspecified malignant neoplasm of intrathoracic lymph nodes; C78.01 Secondary malignant neoplasm of right lung; Z79.899 Other long term (current) drug therapy
CPT/HCPCS: 36415; 80053; 82607; 82728; 83540; 83550; 84260; 85025; 86316; 99214

== ENCOUNTER 2020-10-07 10:24 | Outpatient (CLI) | payer MEDICAID, SELFPAY ==
--- NOTE | 2020-10-07 10:29 | MR_ITS ---
WS: [id number] MRI HEAD WITH CONTRAST TECHNIQUE: Sagittal T1, T2 axial, T2 axial FLAIR, axial susceptibility weighted imaging, axial diffus ion weighted images, and coronal T2 images were obtained. Pre and post-T1 axial and post T1 coronal i mages. ADC and FSPGR images. CLINICAL INFORMATION: HX OF CANCER; PERSISTENT HEADACHE COMPARISON: None. FINDINGS: No evidence of restricted diffusion to suggest acute ischemia. Ventricular system and basal cisterns are patent. Mild small vessel changes. Mild parenchymal volume loss. Normal posterior fossa. Normal v ascular flow voids at the skull base. No extra axial fluid collections. No evidence of mass or mass e ffect. Paranasal sinuses and mastoid air cells are well aerated. Small Tornwaldt cyst or retention cyst in t he posterior nasopharynx. No hemosiderin on susceptibly weighted images. Normal chiasm and pituitary infundibulum. Temporal lobes and hippocampal formations are normal in appearance. Normal optic chiasm and Meckel's cave. No abnormal gadolinium enhancement. No evidence of enhancing intracranial metastatic disease. Normal dural venous sinuses. MR/MR head wo/w con [id number] IMPRESSION: 1. [No evidence of restricted diffusion to suggest acute ischemia. 2. No evidence of enhancing intracranial metastatic disease. 3. Mild small vessel changes. Mild parenchymal volume loss. 4. No hemosiderin on the susceptibly weighted images. 5. No other significant findings.
[2020-10-07] MEDS: gadobenate dimeglumine 20 mL vial IV (12:00)
== END 2020-10-07 10:25 | disposition home or self-care (01) ==
LOC: RADSHAW 10:27
PROVIDERS: PCP Family Medicine; Visit Provider Internal Medicine Hematology & Oncology
DX: Z85.9 Personal history of malignant neoplasm, unspecified (principal); R51.9 Headache, unspecified
CPT/HCPCS: 70553; A9577

== ENCOUNTER → 2021-02-25 10:27 | Outpatient (BNVA) | payer MEDICAID, SELFPAY | PROVIDERS: PCP Family Medicine; Visit Provider Internal Medicine Hematology & Oncology | DX: R91.8 Other nonspecific abnormal finding of lung field (principal) | CPT/HCPCS: 80053; 85025 ==

== ENCOUNTER 2021-03-01 08:52 | Outpatient (CLI) | payer MEDICAID, SELFPAY ==
--- NOTE | 2021-03-01 16:29 | ONC FU_ITS ---
Dr. Padgett follow up note Patient: Mimi Wick Unit #: [id number]: 1975 Dicatated By: Mica Padgett M.D.Date of Visit:Mar 01, 2021 Onc Med Follow-up/Prog Note History of Present Illness: Mrs. 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 And final pathology report showed stains positive for CK cocktail, CD 56, chromogranin A, CK Sylvester and HPA, & synaptophysin. And right hilar lymph node was positive for metastatic disease with tumor identical to right middle lobe mass e.g. neuroendocrine carcinoma As per patient patient went to [facility] with chest pain/panic attack and CT scan of chest was done which showed right middle lobe lung mass and there was also nodule and left lower lobe with no significant mediastinal lymphadenopathy. Underwent CT PET scan on 04/20/2019 which showed 1.9 x 3.5 cm right middle lobe mass with SUV of 5.5 strongly suggestive of malignancy. Multiple other pulmonary nodules measuring up to 5 mm size and too small to characterize. Uptake in the right hilum is atypical in 2 mediastinal background. Pancreatic body lesion measuring about 2.8 cm and is FDG negative. patient went to [facility], and instead of seeing Dr. Acosta, she saw Dr. Grace on July 29, 2019, who reassured her and ordered Ga 68 dotatate PET/CT. As per patient no discussion about clinical trials or any other treatment occurred. As patient was told, it may take couple of months before she gets scheduled for dotatate CT PET scan, and patient has history of bilateral pulmonary nodules and pancreatic mass, she was concerned and anxious so follow-up CT scan of chest abdomen pelvis was done on August 20, 2019 which showed status post right middle lobectomy, slight increase in size of right hilar lymph node now measuring 16 mm in short axis diameter. This lymph node was negative on prior CT PET scan. Due to slight increase in size malignancy is not excluded. Subcentimeter bilateral pulmonary nodules are stable and negative on CT PET. Stable cystic mass in the pancreas. No metastatic disease to the liver or adrenal glands. Mild diffuse colonic wall thickening, mild colitis versus under distention. Follow-up Ga dotatate done on October 22, 2019 showed mild dotatate avid right infrahilar lymph node, which has increased in size, suspicious for residual neuroendocrine disease. A small lymph node with similar uptake characteristic in the subcarinal region is also suspicious. Multiple additional bilateral pulmonary nodules the largest of which is in superior segment of right lower lobe and measures up to 11 mm. But showed no appreciable FDG or dotatate uptake could be a second primary or noncalcified granuloma Interval enlargement of right pericardiophrenic lymph node without appreciable dotatate activity indeterminate but favored to be reactive. 2.7 cm cystic lesion arising from the head of pancreas is incompletely characterized but may represent sidebranch IPMN. Follow-up dotatate PET scan done on May 21, 2020 showed persistent multiple rounded nodules throughout the bilateral lungs with these areas demonstrating varying degree of low-level gallium 68 uptake and index lesions in left upper lobe measuring 0.8 cm with SUV of 3.5, posterior right lower lobe size 0.5 cm SUV of 0.9, posterior segment right lower lobe measuring 1 x 1.4 cm with SUV of 1.3, right lung apex is 0.5 cm with SUV of 0.6 and left lower lobe mass is 0.5 cm with SUV 0.8 and stable lymph node or nodule within the right suprahilar region 1.8 x 2.0 cm with SUV of 3 no additional abnormality seen in the lung and no abnormality seen below diaphragm MRI head done on October 07, 2020 shows no evidence of enhancing intracranial metastatic disease Came for follow-up, denies any specific complaint except chronic but stable mild off and on facial flushing, and now off and on right upper back pain/discomfort, pain control with Tylenol, patient is attributing this to history of thoracotomy. Denies any trauma, denies any hemoptysis or hematemesis, still smoke about half a pack a day. Denies any bronchial wheezing but chronic mild diarrhea, 4-5 BMs a day, now being controlled with [id number] Imodium. No headaches no blurred vision no double vision, no new bony pains As per patient she underwent EGD, colonoscopy by Dr. Madrid about year ago, she was diagnosed with gastritis and was treated medically. Mild off-and-on nausea, being controlled with Zofran. Medications: Acetaminophen 2 Capsule (of 500 mg) Oral daily PRN, Bismatrol Tablet, chewable Oral PRN, CVS Ibuprofen IB Tablet Oral PRN Allergies: Gabapentin Review of Systems: Review of Systems is not available for this patient. Vital Signs: Performed on Mar 01, 2021 09:55 Height - 64.50 in Weight - 167.2 lbs (LOW) BSA - 1.82 sq.m BMI - 28.26 Temperature - 97.1 F (LOW) Pulse - 98 /min Respiration - 18 /min BP - 127/83 mm(hg) O2 Sat - 98 % Pain - 3 Fatigue - 8 Performance Status: 0 - Fully active, able to carry on all predisease activities without restrictions. (ECOG) Physical Examination: ENMT - No mouth sores, no thrush, no jaundice, Respiratory - Lungs are clear to auscultation, Cardiovascular - Regular rate and rhythm of heart, Abdomen - Soft, bowel sounds present, Extremities - No visible edema. Lab/Imaging: Test performed on Feb 25, 2021 16:00 Glucose 83 mg/dL BUN 7 mg/dL Creatinine 0.6 mg/dL Cr Clearance (Est) 143.2600 mL/min Sodium 142 mmol/L Potassium 3.9 mmol/L Chloride 103 mmol/L CO2 25 mmol/L Calcium 8.6 mg/dL Protein, Total 7.1 g/dL Albumin 4.3 g/dL Globulin 2.8 g/dL Bilirubin, Total 0.7 mg/dL Alkaline Phosphatase 84 International Units/L AST (SGOT) 15 International Units/L ALT (SGPT) 14 International Units/L WBC 8.3 10^9/L RBC 5.52 10^12/L HGB 13.4 g/dL HCT 43.2 % MCV 78.3 fl MCH 24.3 pg MCHC 31 g/dL RDW 14.8 % Platelet Count 406 10^9/L Neutrophils (Gran) 4.29 10^9/L Lymphocytes 3.2 10^9/L Monocytes 0.5 10^9/L Eosinophils 0.2 10^9/L Basophils 0.1 10^9/L Test performed on Sep 28, 2020 08:54 Chromogranin A 199 ng/mL Impression: Well differentiated neuroendocrine carcinoma (large cell type), intermediate grade(atypical carcinoid) immunohistochemistry stains positive for stains include CK cocktail, CD 56, chromogranin A, CK Sylvester, HPA, synaptophysin. 3 cm malignant neoplasm with no extension to bronchial margin, vascular margin. No visceral pleural involvement 1 right hilar lymph node was examined and showed metastatic disease Ki-67 demonstrates 5-10% positive nuclei. CT scan of chest showed right middle lobe mass and also a nodule in the left lower lobe with no significant mediastinal lymphadenopathy. CT PET scan done on 04/20/2019 showed 1.9 x 3.5 cm middle lobe mass with SUV of 5.5. Strongly suggestive of malignancy. Multiple other pulmonary nodules measuring up to 5 mm in the size and are too small to characterize with FDG imaging. Pancreatic body lesion measuring 2.8 cm and is FDG negative. Follow-up dotatate PET scan done on May 21, 2020 showed stable bilateral multiple rounded nodules throughout the lungs with this area demonstrating varying degrees of low-level gallium-68 uptake, index lesion size varying from 0.5cm to 1 cm in bilateral lungs no abnormality seen below diaphragm Plan: Discussed with patient regarding her labs white blood count 8.3 hemoglobin 13.4 hematocrit 43.2 MCV 78.3 platelets 406,000 CMP within normal limits, her lab work-up done in August, showed iron deficiency and her serotonin level was 245, chromogranin a checked on September 28, 2020 was 199 Clinically, patient doing well with no new signs symptom except chronic off and on facial flushing and mild diarrhea. No signs symptom suggestive of disease progression. Except generalized weakness and fatigue which could be multifactorial including iron deficiency, patient was supposed to be on oral iron. Patient lost follow-up, she was busy with her mother who has dementia. She was advised to try [id number] oral iron for a month and then return to clinic in 1 month with CBC and iron studies and will also check serotonin level, chromogranin A level and gastrin level for her history of neuroendocrine tumor. If there is a worsening, will consider octreotide scan. Signed By: Miac Padgett M.D. <<Signature on File>>
== END 2021-03-01 08:53 | disposition home or self-care (01) ==
PROVIDERS: PCP Family Medicine; Visit Provider Internal Medicine Hematology & Oncology
DX: C7A.090 Malignant carcinoid tumor of the bronchus and lung (principal); D50.9 Iron deficiency anemia, unspecified; Z79.899 Other long term (current) drug therapy
CPT/HCPCS: 99214

== ENCOUNTER → 2021-03-11 15:01 | Outpatient (BNVA) | payer MEDICAID, SELFPAY | PROVIDERS: PCP Family Medicine; Visit Provider Nurse Practitioner Family | DX: Z20.822 Contact with and (suspected) exposure to COVID-19 (principal); J22 Unspecified acute lower respiratory infection; Z20.828 Contact with and (suspected) exposure to other viral communicable diseases | CPT/HCPCS: 87635 ==

== ENCOUNTER 2021-04-07 11:51 | Outpatient (CLI) | payer MEDICAID, SELFPAY ==
[2021-04-07 13:00] LABS: Basophils % 0.1 %; Eosinophils # 0.1 10^3/uL (0.0-0.8); Eosinophils % 1.2 %; Hematocrit 45.3 % (37.0-47.0); Hemoglobin 14.3 g/dL (11.5-15.3); Lymphocytes # 2.6 10^3/uL (0.8-4.8); Lymphocytes % 37.9 %; Mean Corpuscular HGB Conc 31.6 g/dL (30.0-36.0); Mean Corpuscular Volume 76.1 fl (81-99); Mean Platelet Volume 9.9 fL (7.4-10.4); Monocytes # 0.3 10^3/uL (0.2-0.9); Monocytes % 4.4 %; Neutrophils % 56.1 %; Nucleated Red Blood Cells % 0 %; Platelet Count 283 10^3/cmm (130-400); Red Blood Count 5.95 10^6/uL (4.1-5.3); Red Cell Distribution Width 15.8 % (12.1-15.1); White Blood Count 6.8 10^3/uL (4.0-10.0)
[2021-04-07 13:25] LABS: Ferritin 14 ng/mL (15-150); Iron 45 ug/dL (37-145); Percent Saturation 12.7 % (20-50); Total Iron Binding Capacity 353 mcg/dl; Unsaturated Iron Binding 308 ug/dL (112-347)
[2021-04-12 15:31] LABS: Chromogranin A LC/MS/MS 189 ng/mL (ADULTS: <311)
[2021-04-12 19:33] LABS: Gastrin 32 pg/mL (< OR = 100)
[2021-04-13 20:07] LABS: Serotonin Whole Blood 118 ng/mL (56-244)
== END 2021-04-07 11:52 | disposition home or self-care (01) ==
PROVIDERS: Internal Medicine Hematology & Oncology; PCP Family Medicine; Visit Provider Nurse Practitioner Family
DX: C7A.090 Malignant carcinoid tumor of the bronchus and lung (principal); C7B.01 Secondary carcinoid tumors of distant lymph nodes; R91.1 Solitary pulmonary nodule; K86.89 Other specified diseases of pancreas; D50.9 Iron deficiency anemia, unspecified; M25.511 Pain in right shoulder; Z79.899 Other long term (current) drug therapy
CPT/HCPCS: 36415; 82728; 82941; 83540; 83550; 84260; 85025; 86316; 99214

== ENCOUNTER 2021-06-03 09:37 | Outpatient (CLI) | payer MEDICAID, SELFPAY ==
[2021-06-03 10:27] LABS: Basophils % 0.5 %; Eosinophils # 0.1 10^3/uL (0.0-0.8); Hematocrit 43.6 % (37.0-47.0); Hemoglobin 13.8 g/dL (11.5-15.3); Lymphocytes # 2.5 10^3/uL (0.8-4.8); Lymphocytes % 38.3 %; Mean Corpuscular HGB Conc 31.7 g/dL (30.0-36.0); Mean Corpuscular Hemoglobin 24.8 pg (28.0-34.0); Mean Corpuscular Volume 78.3 fl (81-99); Mean Platelet Volume 9.3 fL (7.4-10.4); Monocytes # 0.4 10^3/uL (0.2-0.9); Monocytes % 6.7 %; Neutrophils # 3.45 10^3/uL (1.8-7.7); Nucleated Red Blood Cells % 0 %; Platelet Count 393 10^3/cmm (130-400); Red Blood Count 5.57 10^6/uL (4.1-5.3); Red Cell Distribution Width 16.2 % (12.1-15.1); White Blood Count 6.6 10^3/uL (4.0-10.0)
[2021-06-03 11:01] LABS: Alanine Aminotransferase 14 U/L (0-33); Albumin Level 4.7 g/dL (3.5-5.2); Alkaline Phosphatase 88 IU/L (35-105); Anion Gap 13.8 (5-19); Aspartate Amino Transferase 18 U/L (0-32); Blood Urea Nitrogen 8 mg/dL (6-20); Calcium 9.4 mg/dL (8.5-10.5); Carbon Dioxide 25 mmol/L (22-29); Chloride 103 mmol/L (98-107); Ferritin 5 ng/mL (15-150); Globulin 3.5 g/dL (1.3-4.6); Glucose 94 mg/dL (65-115); Iron 43 ug/dL (37-145); Osmolality Calculated 284 mOsm/kg (285-295); Percent Saturation 11.2 % (20-50); Potassium 3.8 mmol/L (3.5-5.1); Sodium 138 mmol/L (136-145); Thyroid Stimulating Hormone 2.22 uIU/mL (0.27-4.20); Total Bilirubin 0.7 mg/dL (0.15-1.2); Total Iron Binding Capacity 382 mcg/dl; Total Protein 8.2 g/dL (6.6-8.7); Unsaturated Iron Binding 339 ug/dL (112-347)
--- NOTE | 2021-06-03 17:27 | ONC FU_ITS ---
Dr. Padgett follow up note Patient: Mimi Wick Unit #: [id number]: [id number] Dicatated By: Mica Padgett M.D.Date of Visit:Jun 03, 2021 Onc Med Follow-up/Prog Note History of Present Illness: Mrs. 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 And final pathology report showed stains positive for CK cocktail, CD 56, chromogranin A, CK Sylvester and HPA, & synaptophysin. And right hilar lymph node was positive for metastatic disease with tumor identical to right middle lobe mass e.g. neuroendocrine carcinoma As per patient patient went to [facility] [place] [facility] with chest pain/panic attack and CT scan of chest was done which showed right middle lobe lung mass and there was also nodule and left lower lobe with no significant mediastinal lymphadenopathy. Underwent CT PET scan on 04/20/2019 which showed 1.9 x 3.5 cm right middle lobe mass with SUV of 5.5 strongly suggestive of malignancy. Multiple other pulmonary nodules measuring up to 5 mm size and too small to characterize. Uptake in the right hilum is atypical in 2 mediastinal background. Pancreatic body lesion measuring about 2.8 cm and is FDG negative. patient went to [facility], and instead of seeing Dr. Acosta, she saw Dr. Grace on July 29, 2019, who reassured her and ordered Ga 68 dotatate PET/CT. As per patient no discussion about clinical trials or any other treatment occurred. As patient was told, it may take couple of months before she gets scheduled for dotatate CT PET scan, and patient has history of bilateral pulmonary nodules and pancreatic mass, she was concerned and anxious so follow-up CT scan of chest abdomen pelvis was done on August 20, 2019 which showed status post right middle lobectomy, slight increase in size of right hilar lymph node now measuring 16 mm in short axis diameter. This lymph node was negative on prior CT PET scan. Due to slight increase in size malignancy is not excluded. Subcentimeter bilateral pulmonary nodules are stable and negative on CT PET. Stable cystic mass in the pancreas. No metastatic disease to the liver or adrenal glands. Mild diffuse colonic wall thickening, mild colitis versus under distention. Follow-up Ga dotatate done on October 22, 2019 showed mild dotatate avid right infrahilar lymph node, which has increased in size, suspicious for residual neuroendocrine disease. A small lymph node with similar uptake characteristic in the subcarinal region is also suspicious. Multiple additional bilateral pulmonary nodules the largest of which is in superior segment of right lower lobe and measures up to 11 mm. But showed no appreciable FDG or dotatate uptake could be a second primary or noncalcified granuloma Interval enlargement of right pericardiophrenic lymph node without appreciable dotatate activity indeterminate but favored to be reactive. 2.7 cm cystic lesion arising from the head of pancreas is incompletely characterized but may represent sidebranch IPMN. Follow-up dotatate PET scan done on May 21, 2020 showed persistent multiple rounded nodules throughout the bilateral lungs with these areas demonstrating varying degree of low-level gallium 68 uptake and index lesions in left upper lobe measuring 0.8 cm with SUV of 3.5, posterior right lower lobe size 0.5 cm SUV of 0.9, posterior segment right lower lobe measuring 1 x 1.4 cm with SUV of 1.3, right lung apex is 0.5 cm with SUV of 0.6 and left lower lobe mass is 0.5 cm with SUV 0.8 and stable lymph node or nodule within the right suprahilar region 1.8 x 2.0 cm with SUV of 3 no additional abnormality seen in the lung and no abnormality seen below diaphragm MRI head done on October 07, 2020 shows no evidence of enhancing intracranial metastatic disease Came for follow-up, denies any specific complaint except generalized weakness and fatigue, stopped taking oral iron because of GI intolerance., Denies any melena or hematochezia or hemoptysis or hematemesis but heavy menstrual periods, as per patient in the past she has taken hormonal therapy to slow down menses with some improvement. Denies any facial flushing, denies any diarrhea or abdominal pain, denies any wheezing but postnasal discharge for which she is taking Claritin. Medications: Acetaminophen 2 Capsule (of 500 mg) Oral daily PRN, Bismatrol Tablet, chewable Oral PRN, CVS Ibuprofen IB Tablet Oral PRN, Cyclobenzaprine HCl Tablet Oral Take as Directed, Zofran Tablet Oral Take as Directed Allergies: Gabapentin Review of Systems: Review of Systems is not available for this patient. Vital Signs: Performed on Jun 03, 2021 13:48 Height - 64.50 in Weight - 167.8 lbs (LOW) BSA - 1.83 sq.m BMI - 28.36 Temperature - 97.4 F (LOW) Pulse - 73 /min Respiration - 16 /min BP - 141/90 mm(hg) (HIGH) O2 Sat - 99 % Pain - 4 Fatigue - 9 Performance Status: 0 - Fully active, able to carry on all predisease activities without restrictions. (ECOG) Physical Examination: ENMT - No mouth sores, no jaundice, no thrush, Respiratory - Lungs are clear to auscultation, Cardiovascular - Regular rate and rhythm of heart, Abdomen - Soft, bowel sounds present, Extremities - No visible edema. Lab/Imaging: Test performed on Apr 07, 2021 12:27 Ferritin 14 ng/mL Iron 45 mcg/dL Iron Binding Capacity (TIBC) 353 mcg/dl % Iron Saturation 12.7 % UIBC 308 mcg/dL WBC 6.8 10 3/uL RBC 5.95 10 6/uL HGB 14.3 g/dL HCT 45.3 % MCV 76.1 fl MCH 24.0 pg MCHC 31.6 g/dL RDW 15.8 % Platelet Count 283 10 3/cmm MPV 9.9 fL Neutrophils 3.80 10 3/uL Lymphocytes 2.6 10 3/uL Monocytes 0.3 10 3/uL Eosinophils 0.1 10 3/uL Basophils 0.0 10 3/uL Neutrophil % 56.1 % Lymphocyte % 37.9 % Monocyte % 4.4 % Eosinophil % 1.2 % Basophils % 0.1 % NRBC % 0 % Test performed on Feb 25, 2021 16:00 Glucose 83 mg/dL BUN 7 mg/dL Creatinine 0.6 mg/dL Cr Clearance (Est) 143.2600 mL/min Sodium 142 mmol/L Potassium 3.9 mmol/L Chloride 103 mmol/L CO2 25 mmol/L Calcium 8.6 mg/dL Protein, Total 7.1 g/dL Albumin 4.3 g/dL Globulin 2.8 g/dL Bilirubin, Total 0.7 mg/dL Alkaline Phosphatase 84 International Units/L AST (SGOT) 15 International Units/L ALT (SGPT) 14 International Units/L Impression: Well differentiated neuroendocrine carcinoma (large cell type), intermediate grade(atypical carcinoid) immunohistochemistry stains positive for stains include CK cocktail, CD 56, chromogranin A, CK Sylvester, HPA, synaptophysin. 3 cm malignant neoplasm with no extension to bronchial margin, vascular margin. No visceral pleural involvement 1 right hilar lymph node was examined and showed metastatic disease Ki-67 demonstrates 5-10% positive nuclei. CT scan of chest showed right middle lobe mass and also a nodule in the left lower lobe with no significant mediastinal lymphadenopathy. CT PET scan done on 04/20/2019 showed 1.9 x 3.5 cm middle lobe mass with SUV of 5.5. Strongly suggestive of malignancy. Multiple other pulmonary nodules measuring up to 5 mm in the size and are too small to characterize with FDG imaging. Pancreatic body lesion measuring 2.8 cm and is FDG negative. Follow-up dotatate PET scan done on May 21, 2020 showed stable bilateral multiple rounded nodules throughout the lungs with this area demonstrating varying degrees of low-level gallium-68 uptake, index lesion size varying from 0.5cm to 1 cm in bilateral lungs no abnormality seen below diaphragm Iron deficiency with normal hemoglobin, as per patient EGD/colonoscopy done last year was unremarkable, Intolerance to oral iron Plan: Discussed with patient regarding her labs white blood count 6.6 hemoglobin 13.8 hematocrit 43.6 platelets 393,000 MCV 78.3 CMP within normal limits, iron studies shows ferritin of 5 compared to 14 previously iron saturation 11.2% iron 43, TIBC 382, TSH 2.22, chromogranin A level 189, normal being less than 311 gastrin level 32, normal being less than 100 Clinically, patient doing well with no new signs symptom but persistent generalized weakness and fatigue could be multifactorial including iron deficiency although her hemoglobin is in normal range, patient was on oral iron but discontinue because of GI intolerance, at this point, will consider parenteral iron Injectafer x1, will obtain approval from her insurance prior to the infusion, all the side effect possible benefits including but not limited to allergic reaction, headaches were mentioned. Further teaching will be done by chemotherapy nurse, patient will return to clinic 1 month after parenteral iron with CBC and iron studies As far as neuroendocrine carcinoma is concerned, biochemical testing showed no progression/recurrence patient has no signs symptoms history of recurrence of disease, will continue to monitor As far as etiology for iron deficiency is concerned probably due to heavy menstruals, as per patient she had EGD/colonoscopy done last year it was unremarkable, will obtain report and review. Patient was also advised to consult with PMD regarding referred to [facility] for evaluation for heavy menses. Return to clinic in 1 month after parenteral iron with CBC and iron studies Signed By: Mica Padgett M.D. <<Signature on File>>
== END 2021-06-03 09:38 | disposition home or self-care (01) ==
PROVIDERS: PCP Family Medicine; Visit Provider Internal Medicine Hematology & Oncology
DX: C7A.090 Malignant carcinoid tumor of the bronchus and lung (principal); C7B.01 Secondary carcinoid tumors of distant lymph nodes; D50.9 Iron deficiency anemia, unspecified; R53.1 Weakness; R53.83 Other fatigue; Z79.899 Other long term (current) drug therapy
CPT/HCPCS: 36415; 80053; 82728; 83540; 83550; 84443; 85025; 99214

== ENCOUNTER 2021-06-16 07:53 | Outpatient (CLI) | payer MEDICAID, SELFPAY ==
[2021-06-16] MEDS: sodium chloride 0.9% 500 ML IV (08:40)
[2021-06-16] MEDS: acetaminophen 325 mg Tablet 650 MG PO (08:40)
[2021-06-16] MEDS: diphenhydrAMINE 25 mg Capsule PO (08:40)
[2021-06-16] MEDS: iron dextran 25 MG in SYRINGE 1 EACH 30 MG IVP (09:10)
[2021-06-16] MEDS: iron dextran 1,000 MG in sodium chloride 0.9% 1,000 ML 250 MG IV (10:00)
== END 2021-06-16 07:54 | disposition home or self-care (01) ==
LOC: ONCMED 07:54
PROVIDERS: PCP Family Medicine; Visit Provider Internal Medicine Hematology & Oncology
DX: D50.9 Iron deficiency anemia, unspecified (principal); Z79.899 Other long term (current) drug therapy
CPT/HCPCS: 96365; 96366; J1100; J1750; J7030; J7040

== ENCOUNTER → 2021-07-15 08:40 | Outpatient (BNVA) | payer MEDICAID, SELFPAY | PROVIDERS: PCP Family Medicine; Visit Provider Internal Medicine Hematology & Oncology | DX: C7A.090 Malignant carcinoid tumor of the bronchus and lung (principal) | CPT/HCPCS: 85025 ==

== ENCOUNTER → 2021-07-21 11:26 | Outpatient (BNVA) | payer MEDICAID, SELFPAY | PROVIDERS: PCP Family Medicine; Visit Provider Internal Medicine Hematology & Oncology | DX: C34.2 Malignant neoplasm of middle lobe, bronchus or lung (principal); K21.9 Gastro-esophageal reflux disease without esophagitis; R11.0 Nausea; R06.02 Shortness of breath; Z79.899 Other long term (current) drug therapy | CPT/HCPCS: 82728; 83550; 85025 ==

== ENCOUNTER 2021-07-22 07:53 | Oncology outpatient (recurring) (ONCR) | payer MEDICAID, SELFPAY | END 2021-07-27 23:59 | disposition home or self-care (01) | PROVIDERS: PCP Family Medicine; Visit Provider Internal Medicine Hematology & Oncology | DX: C7A.090 Malignant carcinoid tumor of the bronchus and lung (principal); C7B.01 Secondary carcinoid tumors of distant lymph nodes; K21.9 Gastro-esophageal reflux disease without esophagitis; D50.9 Iron deficiency anemia, unspecified; N92.0 Excessive and frequent menstruation with regular cycle; Z79.899 Other long term (current) drug therapy | CPT/HCPCS: 99214; 99999 ==

== ENCOUNTER 2021-12-13 08:29 | Oncology outpatient (recurring) (ONCR) | payer MEDICAID, SELFPAY ==
[2021-12-09 11:27] LABS: Basophils # 0.1 10^3/uL (0.0-0.1); Basophils % 0.5 %; Eosinophils # 0.1 10^3/uL (0.0-0.8); Eosinophils % 1.5 %; Hematocrit 48.4 % (37.0-47.0); Lymphocytes # 2.5 10^3/uL (0.8-4.8); Lymphocytes % 27.2 %; Mean Corpuscular HGB Conc 33.1 g/dL (30.0-36.0); Mean Corpuscular Hemoglobin 27.7 pg (28.0-34.0); Mean Corpuscular Volume 83.9 fl (81-99); Mean Platelet Volume 9.3 fL (7.4-10.4); Monocytes # 0.5 10^3/uL (0.2-0.9); Monocytes % 5.7 %; Neutrophils # 5.95 10^3/uL (1.8-7.7); Neutrophils % 64.7 %; Nucleated Red Blood Cells % 0 %; Platelet Count 373 10^3/cmm (130-400); Red Blood Count 5.77 10^6/uL (4.1-5.3); Red Cell Distribution Width 13.3 % (12.1-15.1); White Blood Count 9.2 10^3/uL (4.0-10.0)
[2021-12-09 12:00] LABS: Alanine Aminotransferase 12 U/L (0-33); Alkaline Phosphatase 94 U/L (35-105); Anion Gap 16.6 (5-19); Aspartate Amino Transferase 16 U/L (0-32); Blood Urea Nitrogen 8 mg/dL (6-20); Calcium 9.7 mg/dL (8.5-10.5); Carbon Dioxide 27 mmol/L (22-29); Chloride 100 mmol/L (98-107); Ferritin 57 ng/mL (15-150); Globulin 3.4 g/dL (1.3-4.6); Glomerular Filtration Rate 133.4 mL/min (90-130); Glucose 78 mg/dL (65-115); Iron 77 ug/dL (37-145); Osmolality Calculated 285 mOsm/kg (285-295); Percent Saturation 24.6 % (20-50); Potassium 4.6 mmol/L (3.5-5.1); Sodium 139 mmol/L (136-145); Total Bilirubin 0.7 mg/dL (0.15-1.2); Total Iron Binding Capacity 312 mcg/dl; Total Protein 8.4 g/dL (6.6-8.7); Unsaturated Iron Binding 235 ug/dL (112-347)
[2021-12-15 20:32] LABS: Gastrin 17 pg/mL (< OR = 100)
[2021-12-19 13:38] LABS: Serotonin Whole Blood 149 ng/mL (56-244)
[2021-12-21 12:14] LABS: Chromogranin A LC/MS/MS 148 ng/mL (ADULTS: <311)
== END 2021-12-27 23:59 | disposition home or self-care (01) ==
PROVIDERS: PCP Family Medicine; Visit Provider Internal Medicine Hematology & Oncology
DX: C7A.090 Malignant carcinoid tumor of the bronchus and lung (principal); Z90.2 Acquired absence of lung [part of]; R91.8 Other nonspecific abnormal finding of lung field; F17.210 Nicotine dependence, cigarettes, uncomplicated; D50.9 Iron deficiency anemia, unspecified; C7B.01 Secondary carcinoid tumors of distant lymph nodes; J44.9 Chronic obstructive pulmonary disease, unspecified; J06.9 Acute upper respiratory infection, unspecified
CPT/HCPCS: 36415; 80053; 82728; 82941; 83540; 83550; 84260; 85025; 86316; 99214

== ENCOUNTER → 2021-12-21 08:53 | Outpatient (BNVA) | payer MEDICAID, SELFPAY | PROVIDERS: PCP Family Medicine; Visit Provider Surgery | DX: R11.2 Nausea with vomiting, unspecified (principal) | CPT/HCPCS: 99203 ==

== ENCOUNTER 2022-01-12 11:44 | Outpatient (CLI) | payer MEDICAID, SELFPAY ==
--- NOTE | 2022-01-12 12:00 | CT_ITS ---
WS: [id number] CT CHEST, ABDOMEN AND PELVIS WITH CONTRAST HISTORY: History of lung cancer, short of breath with nausea and vomiting. TECHNIQUE: Contiguous 5 mm axial imaging performed through the chest, abdomen and pelvis with IV cont rast, oral contrast has been provided. Coronal and sagittal reformats chest. Coronal and sagittal ref ormats through the abdomen and pelvis. All CT scans at [facility] use at least one of these d ose optimization techniques: automated exposure control; mA and/or kV adjustment per patient size (in cludes targeted exams where dose is matched to clinical indication); or iterative reconstruction. CONTRAST: Omnipaque 350; 95 mL IV. DLP: 1554.58 mGy.cm COMPARISON: 08/20/2019, PET/CT 04/20/[address]: Prior RIGHT middle lobectomy. Multiple bilateral pulmonary nodules. These nodules have been described on a prior CT from 08/20/2019 and 1 negative on a prior PET/CT. Some of these nodules appea r slightly greater in size but this could be due to volume averaging. The largest ovoid nodule in the RIGHT lower lobe measures 10 mm. There is a new solid mass centered at the RIGHT hilum measuring 5.0 x 5.9 cm and extends over length of 7.3 cm. Mass begins at the RIGHT hilum and extends inferiorly sp laying the RIGHT lower and RIGHT middle lobe bronchial tree. Subcentimeter additional hilar lymph nod es. Small pericardial lymph nodes were present in 2019. There is new RIGHT pleural thickening and a s mall amount of pleural fluid. There is very slight nodularity involving the pleura along the posterio r RIGHT lower lobe. No chest wall abnormality. Heart size is normal. Abdomen CT: Normal liver, spleen, gallbladder and adrenal glands. Cystic mass at the junction of the pancreatic neck and body is reidentified measuring 2.6 x 1.8 cm. No change in size since 2019 and was negative on a prior PET/CT. No renal mass or obstruction. Mild atherosclerosis aorta. No mesenteric or retroperitoneal adenopathy. There are a few very small r etroperitoneal lymph nodes which are benign in appearance. Normally distended stomach. No small bowel obstruction. Normal appendix. Pelvic CT: Normal size anteverted uterus. LEFT ovarian cyst measures 3.3 x 2.5 cm. There are mild narendra dder wall thickening is probably due to underdistention. No pelvic adenopathy. Degenerative disc disease and disc space narrowing at L4-5. No osteoblastic or osteolytic bone diseas e. CT/CT chest abd pel w con* IMPRESSION: 1. Interval development of a large soft tissue mass centered at the RIGHT hilu m extending inferiorly to displace the RIGHT middle and RIGHT lower lobe bronch ial tree. Mass measures 5.0 x 5.9 cm and extends over a length of 7.3 cm. 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 2. Known bilateral numerous pulmonary nodules. Very similar in appearance to with only minimal increase in size by 1 to 2 mm. Increase in size may be due to volume averaging and slice selection. 3. New small RIGHT pleural effusion with mild pleural thickening and nodularit y. Metastatic disease of the pleura also be considered. Consider follow-up PET/ CT imaging. 4. No increase in size of the previously described cystic mass in the pancreas . 5. No mesenteric or retroperitoneal adenopathy or ascites. 6. Small LEFT ovarian cyst.
[2022-01-12] MEDS: iohexol 350 mg/mL 500 mL Btl (per mL) IV (12:40)
== END 2022-01-12 11:45 | disposition home or self-care (01) ==
LOC: RAD 11:45
PROVIDERS: PCP Family Medicine; Visit Provider Internal Medicine Hematology & Oncology
DX: J90 Pleural effusion, not elsewhere classified (principal); R91.8 Other nonspecific abnormal finding of lung field; Z85.9 Personal history of malignant neoplasm, unspecified; N83.202 Unspecified ovarian cyst, left side
CPT/HCPCS: 71260; 74177

== ENCOUNTER 2022-01-18 12:37 | Oncology outpatient (recurring) (ONCR) | payer MEDICAID, SELFPAY ==
[2022-01-18 13:18] LABS: Basophils % 0.4 %; Eosinophils # 0.1 10^3/uL (0.0-0.8); Eosinophils % 1.3 %; Hematocrit 44.7 % (37.0-47.0); Hemoglobin 14.9 g/dL (11.5-15.3); Lymphocytes % 28.6 %; Mean Corpuscular HGB Conc 33.3 g/dL (30.0-36.0); Mean Corpuscular Hemoglobin 27.9 pg (28.0-34.0); Mean Corpuscular Volume 83.6 fl (81-99); Mean Platelet Volume 9.4 fL (7.4-10.4); Monocytes # 0.5 10^3/uL (0.2-0.9); Monocytes % 4.6 %; Neutrophils # 6.78 10^3/uL (1.8-7.7); Neutrophils % 64.7 %; Nucleated Red Blood Cells % 0 %; Platelet Count 403 10^3/cmm (130-400); Red Blood Count 5.35 10^6/uL (4.1-5.3); Red Cell Distribution Width 13.3 % (12.1-15.1); Slide Review Slide Review Perform; White Blood Count 10.5 10^3/uL (4.0-10.0)
[2022-01-18 13:51] LABS: Ferritin 41 ng/mL (15-150); Iron 77 ug/dL (37-145); Percent Saturation 26.7 % (20-50); Total Iron Binding Capacity 288 mcg/dl; Unsaturated Iron Binding 211 ug/dL (112-347)
== END 2022-01-26 23:59 | disposition home or self-care (01) ==
PROVIDERS: PCP Family Medicine; Visit Provider Internal Medicine Hematology & Oncology
DX: C7A.090 Malignant carcinoid tumor of the bronchus and lung (principal); C7B.01 Secondary carcinoid tumors of distant lymph nodes; K52.9 Noninfective gastroenteritis and colitis, unspecified; J90 Pleural effusion, not elsewhere classified; F17.210 Nicotine dependence, cigarettes, uncomplicated
CPT/HCPCS: 82728; 83540; 83550; 85025; 99214

== ENCOUNTER 2022-02-08 08:36 | Oncology outpatient (recurring) (ONCR) | payer MEDICAID, SELFPAY ==
[2022-02-08 09:33] LABS: Iron 61 ug/dL (37-145)
[2022-02-08 13:33] LABS: SARS Covid-2 Antigen negative (Negative)
== END 2022-02-26 23:59 | disposition home or self-care (01) ==
PROVIDERS: PCP Family Medicine; Visit Provider Internal Medicine Hematology & Oncology
DX: C7A.090 Malignant carcinoid tumor of the bronchus and lung (principal); C7B.01 Secondary carcinoid tumors of distant lymph nodes; F17.210 Nicotine dependence, cigarettes, uncomplicated; D50.9 Iron deficiency anemia, unspecified; M54.2 Cervicalgia; Z79.899 Other long term (current) drug therapy; Z79.2 Long term (current) use of antibiotics; Z79.52 Long term (current) use of systemic steroids
CPT/HCPCS: 36415; 83540; 87426; 99214

== ENCOUNTER 2022-03-07 11:18 | Outpatient (CLI) | payer MEDICAID, SELFPAY ==
[2022-03-07] MEDS: iohexol 350 mg/mL 500 mL Btl (per mL) IV ×2 (11:39→11:40)
--- NOTE | 2022-03-07 12:00 | CTR_ITS ---
PROCEDURE INFORMATION: Exam: CT Chest With Contrast; Diagnostic Exam date and time: 03/07/2022 12:43 PM Age: 46 years old Clinical indication: Other: Swollen lymph node near trachea; Mass, lump, or swelling in the chest; Prior surgery; Surgery type: Tubal, c section, R middle lobectomy; Additional info: Swollen lymph nodes, just prior to next onc visit, history of lung cancer. TECHNIQUE: Imaging protocol: Diagnostic computed tomography of the chest with contrast. Sagittal and coronal reformatted images were created and reviewed. Radiation optimization: All CT scans at this facility use at least one of these dose optimization techniques: automated exposure control; mA and/or kV adjustment per patient size (includes targeted exams where dose is matched to clinical indication); or iterative reconstruction. Contrast material: OMNI 350; Contrast volume: 75 ml; Contrast route: INTRAVENOUS (IV); COMPARISON: CT chest abd pel w con* 01/12/2022 12:41 PM RADIATION DOSE METRICS: Total DLP (mGy-cm): 1020.23 FINDINGS: Trachea: Tracheobronchial structures are patent. Lungs: Multiple nodules in both lungs are stable in size, the largest in the right lower lobe has an average measurement of 1.1 cm (series 5, image 27). Interval development of reticulonodular interstitial thickening in the superior right lower lobe. There is linear scarring in the right mid lung, likely postsurgical in nature. Pleural spaces: No pneumothorax. No pleural effusion. Heart: See Lymph nodes finding. Esophagus: The esophagus is unremarkable. Mediastinal space: No mediastinal hematoma. No pneumomediastinum. Lymph nodes: Enlarged right hilar lymph node extending into the subcarinal region of the mediastinum now measures 7.4 x 5.5 x 4.8 cm, previously measured 7.9 x 6.3 x 5.6 cm (series 8, images 24 and 26 and series 4, image 34). The mass again severely narrows the right inferior pulmonary vein, however contrast is now seen in the vein and going into the left atrium. No other enlarged lymph nodes in the chest. Vasculature: No evidence for aortic aneurysm or aortic dissection. Bones/joints: Mild degenerative changes in the visualized spine. No lytic or sclerotic bony lesions. Calcification of the posterior longitudinal ligament at T4-5, T8-9, T9-10, and T11-12 with mild spinal canal stenosis at T4-5 and T11-12. Osseous findings are stable. Soft tissues: No acute abnormality in the extrathoracic soft tissues. PROCEDURE INFORMATION: Exam: CT Abdomen And Pelvis With Contrast Exam date and time: 03/07/2022 12:43 PM Age: 46 years old Clinical indication: Other: Swollen lymph node near trachea; Mass, lump, or swelling in the chest; Prior surgery; Surgery type: Tubal, c section, R middle lobectomy; Additional info: Swollen lymph nodes, just prior to next onc visit, history of lung cancer. TECHNIQUE: Imaging protocol: Computed tomography of the abdomen and pelvis with contrast. Sagittal and coronal reformatted images were created and reviewed. Radiation optimization: All CT scans at this facility use at least one of these dose optimization techniques: automated exposure control; mA and/or kV adjustment per patient size (includes targeted exams where dose is matched to clinical indication); or iterative reconstruction. Contrast material: OMNI 350; Contrast volume: 75 ml; Contrast route: INTRAVENOUS (IV); COMPARISON: 1. CT chest abd pel w con* 01/12/2022 12:[address] chest w con* [id number] 03/24/2019 7:31 PM RADIATION DOSE METRICS: Total DLP (mGy-cm): 1020.23 FINDINGS: Liver: The liver is unremarkable. Gallbladder and bile ducts: The gallbladder is unremarkable. No biliary ductal dilatation. Pancreas: 3.2 x 1.8 cm cystic focus in the head of the pancreas is stable dating back to 03/24/2019 (series 6, image 25). No pancreatic atrophy. No pancreatic ductal dilatation. Spleen: The spleen is unremarkable. Adrenal glands: The right and left adrenal glands are unremarkable. Kidneys and ureters: The right and left kidneys are unremarkable. The right and left ureters are unremarkable. Stomach and bowel: Scattered diverticula in the colon. No evidence for diverticulitis. No acute abnormality in the small bowel. No acute abnormality in the stomach. Appendix: The appendix is visualized and is unremarkable. No findings to suggest acute appendicitis. Intraperitoneal space: No free intraperitoneal air. No ascites. No loculated fluid collections to suggest an abscess. Vasculature: Stable mild atherosclerotic calcifications in the visualized arteries. No evidence for aortic aneurysm or aortic dissection. Hepatic veins, portal veins, splenic vein, and SMV are patent. 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 The more posterior vein is retroaortic in location. Lymph nodes: No lymphadenopathy. Urinary bladder: The bladder is incompletely filled, which can limit evaluation. No focal abnormality in the bladder however. Reproductive: The uterus is unremarkable. Bones/joints: Degenerative changes in the spine and hips. Significant spinal canal stenosis at L4-L5. Moderate spinal canal stenosis at L5-S1. Multilevel foraminal stenosis of varying severity in the lumbar spine. No lytic or sclerotic bony lesions. Soft tissues: No acute abnormality in the extra-abdominal soft tissues. CT/CT chest abd pel w con* IMPRESSION: 1. Interval development of reticulonodular interstitial thickening in the superior right lower lobe. Findings could represent lymphangitic spread of tumor versus an atypical pneumonia. Recommend clinical correlation. Recommend followup chest imaging to insure resolution of these findings. 2. Enlarged right hilar lymph node has decreased in size. The mass again severely narrows the right inferior pulmonary vein, however contrast is now seen in the vein and going into the left atrium. 3. Multiple nodules in both lungs are stable in size. Fleischner Society follow up recommendations for incidental nodules are not indicated. Follow up per the patient's medical condition. 4. Incidental/nonacute findings are listed in the report. IMPRESSION: 1. No acute abnormality in the abdomen or pelvis. 2. Cystic focus in the head of the pancreas is stable dating back to 03/24/2019. Reimaging every 1 year for 2 years, then every 2 years for 6 years is recommended. (Reference: Marylu, 2017) 3. Scattered diverticula in the colon. No evidence for diverticulitis. 4. Incidental/nonacute findings are listed in the report. REFERENCES: Marylu SOTO, et al. Management of Incidental Pancreatic Cysts: A White Paper of the ACR Incidental Findings Committee. J Am Missy Radiol. 2017;14(7):911-923.
--- NOTE | 2022-03-07 12:30 | CT_ITS ---
WS: [id number] CT NECK TECHNIQUE: Contrast-enhanced CT of the neck with coronal and sagittal reformatted images. CLINICAL INFORMATION: Swollen lymph nodes COMPARISON: None. DLP: 241.[address] scans at [facility] use at least one of these dose optimization techniques: automated e xposure control; mA and/or kV adjustment per patient size (includes targeted exams where dose is matc hed to clinical indication); or iterative reconstruction. FINDINGS: Mastoid air cells and paranasal sinuses are well aerated. Normal submandibular glands. Normal parotid glands. Incidental intraparotid lymph nodes. Normal posterior nasopharynx. Normal parapharyngeal fat . No evidence of supraglottic or glottic mass. Subglottic airway is patent. A few small thyroid nodul es largest in the LEFT measuring 7 mm. Noncalcified nodule RIGHT upper lobe measuring 5 mm. Additional smaller nodule RIGHT upper lobe later ally measuring 2 to 3 mm. Prominent RIGHT greater than LEFT submandibular lymph nodes measuring 8 mm in short axis dimension. A dditional prominent elongated jugulodigastric lymph nodes measuring 10 mm in short axis dimension and 1.9 cm in craniocaudal dimension. Findings are nonspecific but metastatic disease not excluded. Find ings can be further evaluated PET/CT. Prominent RIGHT posterior triangle lymph node measuring 6 mm. Slightly prominent and numerous bilater al posterior triangle lymph nodes. Subcutaneous nodule in the LEFT lower neck soft tissues measuring 7 mm may represent a sebaceous cyst but metastatic disease not excluded. Disc osteophyte complex T4-T5 with mild central canal stenosis. CT/CT neck w con* [id number] IMPRESSION: 1. Prominent RIGHT greater than LEFT submandibular and lobulated jugulodigastr ic lymph nodes are nonspecific and metastatic disease not excluded. Consider PE T/CT in further evaluation. 2. Numerous enhancing posterior triangle lymph nodes not pathologically enlarg ed but indeterminant. Metastatic disease not excluded. 3. Normal salivary glands. 4. No evidence of supraglottic or glottic mass. Normal subglottic airway. 5. A few small thyroid nodules. 6. Noncalcified nodule RIGHT upper lobe measuring 5 mm. Additional smaller nod ule RIGHT upper lobe laterally. Please see chest CT report for further evaluati on.
== END 2022-03-07 11:19 | disposition home or self-care (01) ==
LOC: RAD 11:18
PROVIDERS: PCP Family Medicine; Visit Provider Internal Medicine Hematology & Oncology
DX: C7A.090 Malignant carcinoid tumor of the bronchus and lung (principal)
CPT/HCPCS: 70491; 71260; 74177; Q9967

== ENCOUNTER 2022-03-14 12:58 | Oncology outpatient (recurring) (ONCR) | payer MEDICAID, SELFPAY ==
[2022-03-14 13:18] LABS: Basophils # 0.1 10^3/uL (0.0-0.1); Basophils % 0.7 %; Eosinophils # 0.2 10^3/uL (0.0-0.8); Eosinophils % 2.4 %; Hematocrit 45.9 % (37.0-47.0); Hemoglobin 14.8 g/dL (11.5-15.3); Lymphocytes # 3.4 10^3/uL (0.8-4.8); Lymphocytes % 35.2 %; Mean Corpuscular HGB Conc 32.2 g/dL (30.0-36.0); Mean Corpuscular Volume 83.8 fl (81-99); Mean Platelet Volume 9.4 fL (7.4-10.4); Monocytes # 0.6 10^3/uL (0.2-0.9); Monocytes % 6.3 %; Neutrophils # 5.26 10^3/uL (1.8-7.7); Nucleated Red Blood Cells % 0 %; Platelet Count 388 10^3/cmm (130-400); Red Blood Count 5.48 10^6/uL (4.1-5.3); Red Cell Distribution Width 13.4 % (12.1-15.1); White Blood Count 9.6 10^3/uL (4.0-10.0)
[2022-03-14 13:36] LABS: Alanine Aminotransferase 9 U/L (0-33); Albumin Level 4.6 g/dL (3.5-5.2); Alkaline Phosphatase 83 U/L (35-105); Anion Gap 13.9 (5-19); Aspartate Amino Transferase 14 U/L (0-32); Blood Urea Nitrogen 7 mg/dL (6-20); Calcium 9.4 mg/dL (8.5-10.5); Carbon Dioxide 28 mmol/L (22-29); Chloride 104 mmol/L (98-107); Globulin 2.9 g/dL (1.3-4.6); Glomerular Filtration Rate 133.4 mL/min (90-130); Glucose 71 mg/dL (65-115); Osmolality Calculated 290 mOsm/kg (285-295); Potassium 3.9 mmol/L (3.5-5.1); Sodium 142 mmol/L (136-145); Total Bilirubin 0.7 mg/dL (0.15-1.2); Total Protein 7.5 g/dL (6.6-8.7)
[2022-03-20 09:10] LABS: 24 Hour Urine Volume 1800 mL; 5-HIAA, 24 Hour Urine 1.3 mg/24 h (< OR = 6.0)
== END 2022-03-29 23:59 | disposition home or self-care (01) ==
LOC: ONCMED 12:58
PROVIDERS: PCP Family Medicine; Visit Provider Internal Medicine Hematology & Oncology
DX: C7A.090 Malignant carcinoid tumor of the bronchus and lung (principal); C7B.01 Secondary carcinoid tumors of distant lymph nodes; C7B.09 Secondary carcinoid tumors of other sites; D50.9 Iron deficiency anemia, unspecified; Z79.2 Long term (current) use of antibiotics; Z79.52 Long term (current) use of systemic steroids; Z79.899 Other long term (current) drug therapy
CPT/HCPCS: 36415; 80053; 83497; 85025; 99214

== ENCOUNTER 2022-05-16 09:02 | Oncology outpatient (recurring) (ONCR) | payer MEDICAID, SELFPAY ==
[2022-05-06 07:57] LABS: Basophils % 0.5 %; Eosinophils # 0.2 10^3/uL (0.0-0.8); Eosinophils % 2.4 %; Hematocrit 44.9 % (37.0-47.0); Hemoglobin 14.4 g/dL (11.5-15.3); Lymphocytes # 2.4 10^3/uL (0.8-4.8); Lymphocytes % 27.6 %; Mean Corpuscular HGB Conc 32.1 g/dL (30.0-36.0); Mean Corpuscular Hemoglobin 26.9 pg (28.0-34.0); Mean Corpuscular Volume 83.9 fl (81-99); Mean Platelet Volume 9.3 fL (7.4-10.4); Monocytes # 0.5 10^3/uL (0.2-0.9); Monocytes % 5.7 %; Neutrophils # 5.56 10^3/uL (1.8-7.7); Neutrophils % 63.2 %; Nucleated Red Blood Cells % 0 %; Platelet Count 343 10^3/cmm (130-400); Red Blood Count 5.35 10^6/uL (4.1-5.3); Red Cell Distribution Width 13.7 % (12.1-15.1); White Blood Count 8.8 10^3/uL (4.0-10.0)
[2022-05-06 08:20] LABS: Alanine Aminotransferase 12 U/L (0-33); Albumin Level 3.9 g/dL (3.5-5.2); Alkaline Phosphatase 84 U/L (35-105); Anion Gap 16.9 (5-19); Aspartate Amino Transferase 15 U/L (0-32); Blood Urea Nitrogen 6 mg/dL (6-20); Calcium 8.9 mg/dL (8.5-10.5); Carbon Dioxide 24 mmol/L (22-29); Chloride 102 mmol/L (98-107); Globulin 3.1 g/dL (1.3-4.6); Glomerular Filtration Rate 108.1 mL/min (90-130); Glucose 161 mg/dL (65-115); Osmolality Calculated 289 mOsm/kg (285-295); Potassium 3.9 mmol/L (3.5-5.1); Sodium 139 mmol/L (136-145); Total Bilirubin 0.6 mg/dL (0.15-1.2)
--- NOTE | 2022-05-16 09:42 | N.ONRAD NP_ITS ---
Radiation Oncology Consultation Patient Name: Mimi Wick Date of : 1975 Date of Service: 05/16/2022 Attending Physician: Tommy Banks M.D. Mimi Wick was seen in consultation this afternoon for evaluation regarding palliative thoracic radiotherapy for the management of metastatic atypical carcinoid tumor. 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 A thoracic CT scan obtained on January 12, 2022 described a new right hilar mass measuring 5 cm x 5.9 cm x 7.3 cm. A bronchoscopy was performed by on January 27, 2022. A lymph node station 7 biopsy diagnosed atypical cells consistent with neuroendocrine neoplasm. A repeat CT scan of the thorax ordered on March 07, 2022 described the right hilar mass narrowing the right inferior pulmonary vein. A neck CT scan reported bilateral submandibular and jugulodigastric lymph nodes and bilateral posterior triangle lymphadenopathy. She was referred to [facility] in [place], [place]. A Ga-68 Dotatate PET scan needed on April 27, 2022 confirmed a right hilar mass measuring 2.6 cm x 3.5 cm, right paratracheal lymph node measuring 1.1 cm x 1.2 cm, a sclerotic focus within the left seventh rib, and a 7 mm left upper-lobe pulmonary nodule with mild uptake. The patient was referred for palliative thoracic therapy. Following a discussion concerning Ms. Wick???s recent PET scan, an attempt at palliative radiotherapy is warranted if she elects treatment. I would recommend a 1 week course of treatment. A computed tomographic radiotherapy planning scan will be performed to identify the gross tumor volume. The potential toxicities of thoracic radiotherapy were reviewed. The patient has verbalized understanding would like to proceed as recommended. The patient's medical treatment plan was discussed with Tony Padgett M.D. Signed by: Tommy Banks 05/16/2022 9:41:22 AM
== END 2022-05-27 23:59 | disposition home or self-care (01) ==
PROVIDERS: Visit Provider Internal Medicine Hematology & Oncology
DX: C7A.090 Malignant carcinoid tumor of the bronchus and lung (principal)
CPT/HCPCS: 36415; 80053; 85025; 99205; 99214

== ENCOUNTER 2022-06-16 13:30 | Oncology outpatient (recurring) (ONCR) | payer MEDICAID, SELFPAY ==
[2022-06-06 10:43] LABS: Basophils # 0.1 10^3/uL (0.0-0.1); Basophils % 0.6 %; Eosinophils # 0.2 10^3/uL (0.0-0.8); Hematocrit 48.1 % (37.0-47.0); Hemoglobin 15.7 g/dL (11.5-15.3); Lymphocytes # 2.9 10^3/uL (0.8-4.8); Lymphocytes % 36.4 %; Mean Corpuscular HGB Conc 32.6 g/dL (30.0-36.0); Mean Corpuscular Hemoglobin 27.7 pg (28.0-34.0); Mean Platelet Volume 9.1 fL (7.4-10.4); Monocytes # 0.5 10^3/uL (0.2-0.9); Monocytes % 5.9 %; Neutrophils # 4.25 10^3/uL (1.8-7.7); Neutrophils % 53.6 %; Nucleated Red Blood Cells % 0 %; Platelet Count 338 10^3/cmm (130-400); Red Blood Count 5.66 10^6/uL (4.1-5.3); Red Cell Distribution Width 13.2 % (12.1-15.1); White Blood Count 7.9 10^3/uL (4.0-10.0)
[2022-06-06 11:05] LABS: Alanine Aminotransferase 21 U/L (0-33); Albumin Level 4.2 g/dL (3.5-5.2); Alkaline Phosphatase 90 U/L (35-105); Aspartate Amino Transferase 21 U/L (0-32); Blood Urea Nitrogen 4 mg/dL (6-20); Calcium 9.2 mg/dL (8.5-10.5); Carbon Dioxide 28 mmol/L (22-29); Chloride 102 mmol/L (98-107); Globulin 3.5 g/dL (1.3-4.6); Glomerular Filtration Rate 133.4 mL/min (90-130); Glucose 86 mg/dL (65-115); Osmolality Calculated 288 mOsm/kg (285-295); Sodium 141 mmol/L (136-145); Total Bilirubin 0.4 mg/dL (0.15-1.2); Total Protein 7.7 g/dL (6.6-8.7)
[2022-06-16 11:20] LABS: Basophils % 0.3 %; Eosinophils # 0.2 10^3/uL (0.0-0.8); Eosinophils % 1.7 %; Hematocrit 46.5 % (37.0-47.0); Hemoglobin 15.3 g/dL (11.5-15.3); Lymphocytes % 31.8 %; Mean Corpuscular HGB Conc 32.9 g/dL (30.0-36.0); Mean Corpuscular Hemoglobin 27.3 pg (28.0-34.0); Mean Platelet Volume 9.2 fL (7.4-10.4); Monocytes # 0.5 10^3/uL (0.2-0.9); Monocytes % 5.2 %; Neutrophils # 5.67 10^3/uL (1.8-7.7); Neutrophils % 60.7 %; Nucleated Red Blood Cells % 0 %; Platelet Count 292 10^3/cmm (130-400); Red Cell Distribution Width 13.1 % (12.1-15.1); White Blood Count 9.4 10^3/uL (4.0-10.0)
[2022-06-16 11:39] LABS: Alanine Aminotransferase 13 U/L (0-33); Albumin Level 4.3 g/dL (3.5-5.2); Alkaline Phosphatase 77 U/L (35-105); Anion Gap 14.8 (5-19); Aspartate Amino Transferase 15 U/L (0-32); Blood Urea Nitrogen 7 mg/dL (6-20); Carbon Dioxide 26 mmol/L (22-29); Chloride 104 mmol/L (98-107); Glomerular Filtration Rate 133.4 mL/min (90-130); Glucose 124 mg/dL (65-115); Osmolality Calculated 291 mOsm/kg (285-295); Potassium 3.8 mmol/L (3.5-5.1); Sodium 141 mmol/L (136-145); Total Protein 7.3 g/dL (6.6-8.7)
[2022-06-16] MEDS: octreotide LAR depot 20 mg Kit IM (13:58)
[2022-06-16 14:03] VITALS: BP 120/83; PULSE 73; RESP 16; TEMP 35.9; O2SAT 96
== END 2022-06-26 23:59 | disposition home or self-care (01) ==
PROVIDERS: Visit Provider Internal Medicine Hematology & Oncology
DX: C7A.090 Malignant carcinoid tumor of the bronchus and lung (principal); C7B.01 Secondary carcinoid tumors of distant lymph nodes; C7B.03 Secondary carcinoid tumors of bone; C7B.09 Secondary carcinoid tumors of other sites; D50.9 Iron deficiency anemia, unspecified; F17.210 Nicotine dependence, cigarettes, uncomplicated; Z79.818 Long term (current) use of other agents affecting estrogen receptors and estrogen levels; Z79.899 Other long term (current) drug therapy; D3A.00 Benign carcinoid tumor of unspecified site
CPT/HCPCS: 36415; 80053; 85025; 96401; 99214; J2353

== ENCOUNTER 2022-07-07 10:51 | Oncology outpatient (recurring) (ONCR) | payer MEDICAID, SELFPAY ==
[2022-06-30 09:02] LABS: Basophils % 0.5 %; Eosinophils # 0.3 10^3/uL (0.0-0.8); Hematocrit 47.7 % (37.0-47.0); Hemoglobin 15.5 g/dL (11.5-15.3); Lymphocytes # 2.4 10^3/uL (0.8-4.8); Lymphocytes % 29.5 %; Mean Corpuscular HGB Conc 32.5 g/dL (30.0-36.0); Mean Corpuscular Hemoglobin 26.9 pg (28.0-34.0); Mean Corpuscular Volume 82.7 fl (81-99); Mean Platelet Volume 9.5 fL (7.4-10.4); Monocytes # 0.6 10^3/uL (0.2-0.9); Monocytes % 6.8 %; Neutrophils # 4.87 10^3/uL (1.8-7.7); Nucleated Red Blood Cells % 0 %; Platelet Count 249 10^3/cmm (130-400); Red Blood Count 5.77 10^6/uL (4.1-5.3); Red Cell Distribution Width 12.9 % (12.1-15.1); White Blood Count 8.3 10^3/uL (4.0-10.0)
[2022-06-30 09:22] LABS: Albumin Level 4.2 g/dL (3.5-5.2); Alkaline Phosphatase 81 U/L (35-105); Anion Gap 13.2 (5-19); Aspartate Amino Transferase 15 U/L (0-32); Blood Urea Nitrogen 5 mg/dL (6-20); Calcium 9.1 mg/dL (8.5-10.5); Carbon Dioxide 26 mmol/L (22-29); Chloride 102 mmol/L (98-107); Globulin 3.2 g/dL (1.3-4.6); Glomerular Filtration Rate 133.4 mL/min (90-130); Glucose 120 mg/dL (65-115); Osmolality Calculated 282 mOsm/kg (285-295); Potassium 4.2 mmol/L (3.5-5.1); Sodium 137 mmol/L (136-145); Total Bilirubin 0.7 mg/dL (0.15-1.2); Total Protein 7.4 g/dL (6.6-8.7)
[2022-06-30 09:32] LABS: Alanine Aminotransferase 13 U/L (0-33)
[2022-07-07 11:44] LABS: Basophils # 0.1 10^3/uL (0.0-0.1); Basophils % 0.5 %; Eosinophils # 0.2 10^3/uL (0.0-0.8); Eosinophils % 1.8 %; Hematocrit 47.3 % (37.0-47.0); Hemoglobin 15.1 g/dL (11.5-15.3); Lymphocytes # 3.5 10^3/uL (0.8-4.8); Lymphocytes % 27.3 %; Mean Corpuscular HGB Conc 31.9 g/dL (30.0-36.0); Mean Corpuscular Hemoglobin 26.9 pg (28.0-34.0); Mean Corpuscular Volume 84.2 fl (81-99); Mean Platelet Volume 9.5 fL (7.4-10.4); Monocytes # 0.7 10^3/uL (0.2-0.9); Monocytes % 5.5 %; Neutrophils # 8.25 10^3/uL (1.8-7.7); Neutrophils % 63.6 %; Nucleated Red Blood Cells % 0 %; Platelet Count 424 10^3/cmm (130-400); Red Blood Count 5.62 10^6/uL (4.1-5.3); Red Cell Distribution Width 13.1 % (12.1-15.1)
[2022-07-07 12:03] LABS: Alanine Aminotransferase 11 U/L (0-33); Albumin Level 4.1 g/dL (3.5-5.2); Alkaline Phosphatase 89 U/L (35-105); Anion Gap 13.9 (5-19); Aspartate Amino Transferase 14 U/L (0-32); Blood Urea Nitrogen 8 mg/dL (6-20); Calcium 8.5 mg/dL (8.5-10.5); Carbon Dioxide 28 mmol/L (22-29); Chloride 98 mmol/L (98-107); Glomerular Filtration Rate 133.4 mL/min (90-130); Glucose 175 mg/dL (65-115); Osmolality Calculated 285 mOsm/kg (285-295); Potassium 3.9 mmol/L (3.5-5.1); Sodium 136 mmol/L (136-145); Total Bilirubin 0.4 mg/dL (0.15-1.2); Total Protein 7.1 g/dL (6.6-8.7)
== END 2022-07-27 23:59 | disposition home or self-care (01) ==
PROVIDERS: Nurse Practitioner Family; PCP Nurse Practitioner Family; Visit Provider Internal Medicine Hematology & Oncology
DX: C7A.090 Malignant carcinoid tumor of the bronchus and lung (principal); C7B.01 Secondary carcinoid tumors of distant lymph nodes; C7B.03 Secondary carcinoid tumors of bone; C7B.09 Secondary carcinoid tumors of other sites; L27.1 Localized skin eruption due to drugs and medicaments taken internally; F17.210 Nicotine dependence, cigarettes, uncomplicated; Z79.2 Long term (current) use of antibiotics; Z79.52 Long term (current) use of systemic steroids; Z79.899 Other long term (current) drug therapy; R05.3 Chronic cough; R06.02 Shortness of breath; R53.83 Other fatigue; R07.81 Pleurodynia; T45.1X5A Adverse effect of antineoplastic and immunosuppressive drugs, initial encounter; Z79.891 Long term (current) use of opiate analgesic; R30.0 Dysuria
CPT/HCPCS: 36415; 80053; 85025; 99214

== ENCOUNTER 2022-08-05 06:25 | Outpatient (CLI) | payer MEDICAID, SELFPAY ==
--- NOTE | 2022-08-05 07:00 | CT_ITS ---
WS: [id number] CT chest w con* [id number] HISTORY: persistent progressive pain TECHNIQUE: Axial imaging performed through the thorax. Coronal and sagittal reformats are submitted. All CT scans at [facility] use at least one of these dose optimization techniques: automated exposure control; mA and/or kV adjustment per patient size (includes targeted exams where dose is mat ched to clinical indication); or iterative reconstruction. CONTRAST: Omnipaque 350; 100 mL IV. DLP: 332.55 mGy.cm COMPARISON: 03/07/[address] 04/27/2022 Lungs and central airway: Well aerated lungs. There are bilateral pulmonary nodules which were negati ve on the PET/CT of 04/27/2022. The largest nodule is ovoid in the RIGHT lower lobe with a maximum diam eter of 13 mm. No new mass or nodule. No endobronchial lesion. Pleura: Normal. No pleural effusion. Heart and pericardium: Normal size heart with no pericardial effusion. Mediastinum and keke: Decrease in size of the RIGHT hilar lymphadenopathy. Group of lymph nodes measu res 2.5 x 2.3 cm. Significant decrease in size since 03/07/2022 and also the PET/CT of 04/27/2022. Additi onal smaller bilateral hilar lymph nodes. No new or increasing size of adenopathy. Vessels: Mild atherosclerosis aorta. Normal size pulmonary artery. Chest wall and lower neck: Subcentimeter bilateral thyroid nodules. No axillary adenopathy. Upper abdomen: No adrenal mass. Visualized liver is negative. Cystic mass centered in the neck and he ad of the pancreas measures 3.2 x 1.8 cm. PET/CT negative. Mass measures 3.2 x 2.1 cm. Osseous structures: No destructive bone lesions. No destructive left-sided rib lesions are identified . Mild sclerosis and expansion of the LEFT seventh rib. This does appear to be healing fracture. No e ighth rib abnormality. CT/CT chest w con* [id number] IMPRESSION: 1. Sclerotic changes LEFT seventh rib, likely a healing fracture. No abnormali ty identified in the LEFT seventh rib. 2. Negative PET CT pulmonary nodules. No new or increasing pulmonary nodule. 3. Moderate decrease in size of the RIGHT hilar lymph nodes now measuring 2.5 x 2.3 cm. 4. Stable FDG negative cystic mass in the pancreatic neck.
[2022-08-05] MEDS: iohexol 350 mg/mL 500 mL Btl (per mL) IV (07:16)
== END 2022-08-05 06:26 | disposition home or self-care (01) ==
LOC: RAD 06:26
PROVIDERS: PCP Nurse Practitioner Family; Visit Provider Nurse Practitioner Family
DX: M89.9 Disorder of bone, unspecified (principal); R91.8 Other nonspecific abnormal finding of lung field; K86.9 Disease of pancreas, unspecified
CPT/HCPCS: 71260; Q9967

== ENCOUNTER 2022-08-08 13:00 | Oncology outpatient (recurring) (ONCR) | payer MEDICAID, SELFPAY ==
[2022-08-08 13:13] VITALS: BP 153/92; PULSE 76; RESP 20; TEMP 36.3; O2SAT 97
--- NOTE | 2022-08-08 13:13 | PC.NURSE ---
lab drawn via RFA x1 attempt.
[2022-08-08 13:21] LABS: Basophils % 0.5 %; Eosinophils # 0.2 10^3/uL (0.0-0.8); Eosinophils % 2.3 %; Hematocrit 44.7 % (37.0-47.0); Hemoglobin 14.7 g/dL (11.5-15.3); Lymphocytes # 3.1 10^3/uL (0.8-4.8); Lymphocytes % 35.3 %; Mean Corpuscular HGB Conc 32.9 g/dL (30.0-36.0); Mean Corpuscular Hemoglobin 27.2 pg (28.0-34.0); Mean Corpuscular Volume 82.8 fl (81-99); Mean Platelet Volume 9.1 fL (7.4-10.4); Monocytes # 0.4 10^3/uL (0.2-0.9); Neutrophils # 4.94 10^3/uL (1.8-7.7); Neutrophils % 56.3 %; Nucleated Red Blood Cells % 0 %; Platelet Count 358 10^3/cmm (130-400); Red Cell Distribution Width 14.3 % (12.1-15.1); White Blood Count 8.8 10^3/uL (4.0-10.0)
[2022-08-08 13:41] LABS: Alanine Aminotransferase 10 U/L (0-33); Albumin Level 4.4 g/dL (3.5-5.2); Alkaline Phosphatase 75 U/L (35-105); Anion Gap 12.6 (5-19); Aspartate Amino Transferase 12 U/L (0-32); Blood Urea Nitrogen 6 mg/dL (6-20); Calcium 8.9 mg/dL (8.5-10.5); Carbon Dioxide 26 mmol/L (22-29); Chloride 101 mmol/L (98-107); Globulin 2.8 g/dL (1.3-4.6); Glomerular Filtration Rate 108.1 mL/min (90-130); Glucose 125 mg/dL (65-115); Osmolality Calculated 281 mOsm/kg (285-295); Potassium 3.6 mmol/L (3.5-5.1); Sodium 136 mmol/L (136-145); Total Bilirubin 0.8 mg/dL (0.15-1.2); Total Protein 7.2 g/dL (6.6-8.7)
== END 2022-08-26 23:59 | disposition home or self-care (01) ==
PROVIDERS: PCP Nurse Practitioner Family; Visit Provider Internal Medicine Hematology & Oncology
DX: C7A.090 Malignant carcinoid tumor of the bronchus and lung (principal); C7B.01 Secondary carcinoid tumors of distant lymph nodes; C7B.03 Secondary carcinoid tumors of bone; C7B.09 Secondary carcinoid tumors of other sites; D50.9 Iron deficiency anemia, unspecified; F17.210 Nicotine dependence, cigarettes, uncomplicated; Z79.899 Other long term (current) drug therapy; Z79.2 Long term (current) use of antibiotics; Z79.52 Long term (current) use of systemic steroids; Z53.9 Procedure and treatment not carried out, unspecified reason
CPT/HCPCS: 36415; 80053; 85025; 99214

== ENCOUNTER 2022-09-26 09:38 | Oncology outpatient (recurring) (ONCR) | payer MEDICAID, SELFPAY ==
[2022-09-07 08:27] VITALS: BP 130/86; PULSE 80; RESP 18; TEMP 36.6; O2SAT 96
[2022-09-07 08:43] LABS: Basophils % 0.5 %; Eosinophils # 0.2 10^3/uL (0.0-0.8); Eosinophils % 1.9 %; Hematocrit 45.5 % (37.0-47.0); Hemoglobin 15.1 g/dL (11.5-15.3); Lymphocytes # 2.4 10^3/uL (0.8-4.8); Lymphocytes % 28.1 %; Mean Corpuscular HGB Conc 33.2 g/dL (30.0-36.0); Mean Corpuscular Volume 84.4 fl (81-99); Monocytes # 0.5 10^3/uL (0.2-0.9); Monocytes % 6.5 %; Neutrophils # 5.24 10^3/uL (1.8-7.7); Neutrophils % 62.5 %; Nucleated Red Blood Cells % 0 %; Platelet Count 336 10^3/cmm (130-400); Red Blood Count 5.39 10^6/uL (4.1-5.3); Red Cell Distribution Width 14.3 % (12.1-15.1); White Blood Count 8.4 10^3/uL (4.0-10.0)
[2022-09-07 08:56] LABS: Alanine Aminotransferase 10 U/L (0-33); Albumin Level 4.2 g/dL (3.5-5.2); Alkaline Phosphatase 89 U/L (35-105); Anion Gap 12.1 (5-19); Aspartate Amino Transferase 12 U/L (0-32); Blood Urea Nitrogen 7 mg/dL (6-20); Calcium 9.3 mg/dL (8.5-10.5); Carbon Dioxide 28 mmol/L (22-29); Chloride 102 mmol/L (98-107); Glomerular Filtration Rate 107.6 mL/min (90-130); Glucose 89 mg/dL (65-115); Osmolality Calculated 283 mOsm/kg (285-295); Potassium 4.1 mmol/L (3.5-5.1); Sodium 138 mmol/L (136-145); Total Bilirubin 0.9 mg/dL (0.15-1.2); Total Protein 7.2 g/dL (6.6-8.7)
[2022-09-07] MEDS: octreotide LAR depot 20 mg Kit IM (10:54)
[2022-09-07 10:57] VITALS: BP 133/85; PULSE 78; RESP 18; O2SAT 94
[2022-09-26 09:39] VITALS: BMI 29.0
[2022-09-26 09:40] VITALS: BP 124/82; PULSE 80; RESP 16; TEMP 36.3; O2SAT 97
[2022-09-26 09:51] LABS: Basophils % 0.6 %; Eosinophils # 0.3 10^3/uL (0.0-0.8); Eosinophils % 3.9 %; Hematocrit 45.1 % (37.0-47.0); Lymphocytes # 2.2 10^3/uL (0.8-4.8); Lymphocytes % 34.8 %; Mean Corpuscular HGB Conc 33.3 g/dL (30.0-36.0); Mean Corpuscular Hemoglobin 27.1 pg (28.0-34.0); Mean Corpuscular Volume 81.6 fl (81-99); Mean Platelet Volume 9.7 fL (7.4-10.4); Monocytes # 0.4 10^3/uL (0.2-0.9); Neutrophils # 3.37 10^3/uL (1.8-7.7); Neutrophils % 53.2 %; Nucleated Red Blood Cells % 0 %; Platelet Count 259 10^3/cmm (130-400); Red Blood Count 5.53 10^6/uL (4.1-5.3); Red Cell Distribution Width 13.2 % (12.1-15.1); White Blood Count 6.3 10^3/uL (4.0-10.0)
[2022-09-26 10:25] LABS: Alanine Aminotransferase 18 U/L (0-33); Albumin Level 4.4 g/dL (3.5-5.2); Alkaline Phosphatase 81 U/L (35-105); Anion Gap 15.1 (5-19); Aspartate Amino Transferase 18 U/L (0-32); Blood Urea Nitrogen 6 mg/dL (6-20); Calcium 9.5 mg/dL (8.5-10.5); Carbon Dioxide 26 mmol/L (22-29); Chloride 103 mmol/L (98-107); Globulin 2.5 g/dL (1.3-4.6); Glomerular Filtration Rate 107.6 mL/min (90-130); Glucose 165 mg/dL (65-115); Osmolality Calculated 291 mOsm/kg (285-295); Phosphorus 2.3 mg/dL (2.5-4.5); Potassium 4.1 mmol/L (3.5-5.1); Sodium 140 mmol/L (136-145); Total Bilirubin 0.9 mg/dL (0.15-1.2); Total Protein 6.9 g/dL (6.6-8.7)
== END 2022-09-26 23:59 | disposition home or self-care (01) ==
PROVIDERS: Nurse Practitioner Family; PCP Nurse Practitioner Family; Visit Provider Internal Medicine Hematology & Oncology
DX: C7A.090 Malignant carcinoid tumor of the bronchus and lung (principal); C7B.01 Secondary carcinoid tumors of distant lymph nodes; C7B.03 Secondary carcinoid tumors of bone; C7B.09 Secondary carcinoid tumors of other sites; L27.1 Localized skin eruption due to drugs and medicaments taken internally; T45.1X5A Adverse effect of antineoplastic and immunosuppressive drugs, initial encounter; K12.31 Oral mucositis (ulcerative) due to antineoplastic therapy; R60.0 Localized edema; R11.2 Nausea with vomiting, unspecified; R19.7 Diarrhea, unspecified; Z79.52 Long term (current) use of systemic steroids; Z79.899 Other long term (current) drug therapy
CPT/HCPCS: 36415; 80053; 84100; 85025; 96402; 99214; J2353